=== PATIENT | female | born 1950 | race Caucasian/White ===

== ENCOUNTER 2018-11-16 07:56 | Inpatient (IN) ==
[2018-11-16] MEDS: Dexmedetomidine HCl 400 MCG/100 ML MLS IVC SCH ×2 (08:15→18:52)
[2018-11-16] MEDS ORDERED: 0.9 % Sodium Chloride 1,000 ML IVC ONE (08:19)
[2018-11-16] MEDS ORDERED: *HR* Etomidate 20 MG/10 ML AMPUL IVP ONE (08:23)
[2018-11-16] MEDS ORDERED: *HR* Rocuronium Bromide 50 MG/5 ML VIAL IVP ONE (08:24)
[2018-11-16] MEDS ORDERED: Dexmedetomidine HCl 400 MCG/100 ML MLS IVC ONE (08:32)
[2018-11-16] MEDS ORDERED: Isovue-370 500 ML BOTTLE IVP ONE (08:32)
[2018-11-16 08:50] LABS: Bilirubin,Urine Negative (Negative); Blood,Urine Trace (Negative); Clarity,Urine Clear (Clear); Color,Urine Yellow (Yellow); Glucose,Urine (UA) Normal (Normal); Ketones,Urine Negative (Negative); Leukocyte Esterase,Urine Negative (Negative); Nitrite,Urine Negative (Negative); Protein,Urine 100 mg/dL (Neg-Trace); Specific Gravity,Urine 1.021 (1.010-1.025); Urobilinogen,Urine Normal (Normal)
[2018-11-16 08:51] LABS: Basophils % 0.2 %; Immature Granulocytes % 1.2 % (0-4); Red Cell Distribution Width 14.7 % (11.5-14.5); Segmented Neutrophils % 84.3 %
[2018-11-16 08:52] LABS: Hematocrit 38.9 % (35.3-44.9); Hemoglobin 11.2 g/dL (11.5-15.4); Lymphocytes # 0.7 K/mcL (0.6-4.6); Lymphocytes % 4.5 %; Mean Corpuscular HGB Conc 28.8 g/dL (31.6-35.5); Mean Corpuscular Hemoglobin 25.5 pg (28.0-33.3); Mean Corpuscular Volume 88.6 fL (83.0-100.0); Mean Platelet Volume 11.1 fL (9.4-12.4); Monocytes # 1.5 K/mcL (0.0-1.3); Monocytes % 9.8 %; Neutrophils # 13.2 K/mcL (1.6-8.9); Platelet Count 298 K/mcL (140-400); Red Blood Count 4.39 M/mcL (3.82-4.97); White Blood Count 15.6 K/mcL (4.3-11.1)
--- NOTE | 2018-11-16 08:53 | Emergency Department Note ---
Disposition Clinical Impression: Altered mental status Qualifiers: Altered mental status type: unspecified Qualified Code(s): R41.82 - Altered mental status, unspecified Disposition: Admitted As Inpatient Condition: Critical Time of Disposition: 11:00 General Adult HPI - General Stated complaint: unresponsive Time Seen by Provider: 11/16/18 08:18 Source: EMS Mode of arrival: EMS Limitations: altered mental status Nursing Notes Reviewed: Yes Vital Signs Reviewed: Yes - History of Present Illness HPI Narrative: 68F with pmhx of stage 3 lung cancer that was at a doctor's appointment today and passed out in the parking lot. Pt was about to get into a car with her when she fell over. Pt was not breathing, but did have good pulses. Pt was emergently intubated. - Related Data Home Medications Medication Instructions Recorded Confirmed Albuterol Sulfate [Ventolin Hfa] 2 inh IH Q6H PRN 11/16/18 11/16/18 Budesonide/Formoterol 160/4.5 2 puff IH BIDR 11/16/18 11/16/18 [Symbicort 160/4.5] Folic Acid 1 mg PO DAILY 11/16/18 11/16/18 PredniSONE [Deltasone] 20 mg PO DAILY 11/16/18 11/16/18 Allergies Allergy/AdvReac Type Severity Reaction Status Date / Time No Known Allergies Allergy Verified 11/16/18 09:21 Limitations: ROS unobtainable due to patients medical condition Past Medical History - Past Medical History Attestation: Yes The following information was validated with the patient. Medical history: Reports: cancer Physical Exam General: Not awake or alert. Head: atraumatic, normocephalic. ENT: No conjunctival injection, no scleral icterus. PERRLA. Oropharynx non- erythematous. mucous membranes tacky. Neuro: No focal deficits, no speech deficit, no facial droop, mentating well. BUE/BLE Str 5/5. Pulm: Upper lung galvez have ronchi diffusely Cardio: Tachycardia. Abd: Soft, non-distended. Normoactive bowel sounds. Extremities: Radial pulses 2+ deuce, dorsalis pedis/posterior tibialis 2+ deuce. No LE edema. No cyanosis, clubbing. Skin: warm, dry, intact. No rashes. Course Vital Signs Pulse Rate 107 11/16/18 08:00 Respiratory Rate 21 11/16/18 08:00 Blood Pressure 137/68 11/16/18 08:00 O2 Sat by Pulse Oximetry 98 11/16/18 08:00 Temperature 98.3 F 11/16/18 14:30 Pulse Rate 75 11/16/18 14:30 Respiratory Rate 16 11/16/18 15:36 Blood Pressure 111/80 11/16/18 15:36 O2 Sat by Pulse Oximetry 97 11/16/18 15:36 Oxygen Delivery Oxygen Delivery Ventilator Medical Decision Making - MDM Narrative Medical decision making narrative: 68F that was dx with Stage III Lung cancer over the last several weeks, that developed SOB while walking from the house to the car and then passed out and became unresponsive. Pt was emergently intubated. CTA of chest shows tiny non- obstructing PE but more significantly, shows intermediate bronchus is obstructed by cancer of her rt hilum and mediastinum that is increased from two weeks ago. There may be a post-obstructive PNA on the right side, she will be treated with broad spectrum antibiotics. Pt will be admitted to ICU. Pt was admitted to ICU hospitalist Dr. Arora. Family was informed of her plan for care and they were in agreement with the plan. Pt was closely monitored while in the department and was stable at time of discharge. - Medical Records Medical records reviewed: Yes I reviewed the patient's medical records. - Lab Data Lab results reviewed: Yes I reviewed the patient's lab results. Result diagrams: 11/16/18 08:25 11/16/18 09:15 Lab Results 11/16/18 11/16/18 11/16/18 Range/Units 08:05 08:25 08:25 WBC 15.6 H (4.3-11.1) K/mcL RBC 4.39 (3.82-4.97) M/mcL Hgb 11.2 L (11.5-15.4) g/dL Hct 38.9 (35.3-44.9) % MCV 88.6 (83.0-100.0) fL MCH 25.5 L (28.0-33.3) pg MCHC 28.8 L (31.6-35.5) g/dL RDW 14.7 H (11.5-14.5) % Plt Count 298 (140-400) K/mcL MPV 11.1 (9.4-12.4) fL Immature Gran % 1.2 (0-4) % Seg Neutrophils % 84.3 % Lymphocytes % 4.5 % Monocytes % 9.8 % Eosinophils % 0.0 % Basophils % 0.2 % Neutrophils # 13.2 H (1.6-8.9) K/mcL Lymphocytes # 0.7 (0.6-4.6) K/mcL Monocytes # 1.5 H (0.0-1.3) K/mcL Eosinophils # 0.0 (0.0-0.6) K/mcL Basophils # 0.0 (0.0-0.2) K/mcL Platelet Estimate Normal (Normal) Polychromasia 1+ A (Not Present) Hypochromasia Present A (Not Present) PT 15.1 H (9.4-12.1) Seconds INR 1.3 APTT 24.9 L (26.0-36.0) Seconds Heparin Anti-Xa, Unfract (0.30-0.70) IU/mL ABG pH (7.32-7.45) pH Units ABG pCO2 (35-45) mmHg ABG pO2 (85-104) mmHg ABG HCO3 (21-27) mEq/L ABG Total CO2 (20-26) mEq/L ABG O2 Saturation (95-98) % ABG Base Excess (-2 to 3) mEq/L Respiration Rate O2 Delivery Device Blood Gas Modality Inspired O2 (1-15=lpm [id number]=%) Tidal Volume cc PEEP cm H2O Sodium (136-145) mEq/L Potassium (3.5-5.1) mEq/L Chloride (98-107) mEq/L Carbon Dioxide (23-29) mEq/L BUN (8-23) mg/dL Creatinine (0.60-1.20) mg/dL Est GFR ( Amer) (> 60) Est GFR (Non-Af Amer) (> 60) BUN/Creatinine Ratio (6-26) Glucose (70-105) mg/dL Calculated Osmolality (280-300) Lactic Acid (0.5-2.2) mmol/L Calcium (8.6-10.3) mg/dL Total Bilirubin (0.3-1.0) mg/dL Direct Bilirubin (0.0-0.2) mg/dL Indirect Bilirubin (0.0-1.2) mg/dL AST (13-39) Units/L ALT (7-52) Units/L Alkaline Phosphatase (34-104) Units/L Ammonia (16-53) mcmol/L Troponin I (< 0.04) ng/mL B-Natriuretic Peptide 261 H (Less than 100) pg/mL Serum Total Protein (6.4-8.9) g/dL Albumin (3.5-5.7) g/dL Globulin (2.4-3.5) g/dL Albumin/Globulin Ratio (1.1-2.2) TSH (0.340-5.600) mcIU/mL Urine Color (Yellow) Urine Clarity (Clear) Urine pH (5.0-8.0) pH Units Ur Specific Anselmo (1.010-1.025) Urine Protein (Neg-Trace) mg/dL Urine Glucose (UA) (Normal) mg/dL Urine Ketones (Negative) mg/dL Urine Blood (Negative) Urine Nitrite (Negative) Urine Bilirubin (Negative) Urine Urobilinogen (Normal) mg/dL Ur Leukocyte Esterase (Negative) Urine Microscopic RBC (0-3) per hpf Urine Microscopic WBC (0-3) per hpf Ur Squamous Epith Cells (None-Few) per lpf Urine Bacteria (None-Few) per hpf Granular Casts (None Seen) per lpf Ur Culture Indicated? (NO) Urine Opiates Screen (Awgrdx=344) ng/mL Ur Buprenorphine Scrn (Cutoff=5) ng/mL Ur Barbiturates Screen (Tumstm=625) ng/mL Ur Phencyclidine Scrn (Cutoff=25) ng/mL Ur Amphetamines Screen (Wjwjtt=1059) ng/mL U Benzodiazepines Scrn (Ksewxs=645) ng/mL Urine Cocaine Screen (Cutoff= 300) ng/mL U Marijuana (THC) Screen (Cutoff = 50) ng/mL Ur Drug Screen Interp Ethyl Alcohol (Less than 10) mg/dL Specimen Rejected Blood Type Antibody Screen 11/16/18 11/16/18 11/16/18 Range/Units 08:25 08:36 08:36 WBC (4.3-11.1) K/mcL RBC (3.82-4.97) M/mcL Hgb (11.5-15.4) g/dL Hct (35.3-44.9) % MCV (83.0-100.0) fL MCH (28.0-33.3) pg MCHC (31.6-35.5) g/dL RDW (11.5-14.5) % Plt Count (140-400) K/mcL MPV (9.4-12.4) fL Immature Gran % (0-4) % Seg Neutrophils % % Lymphocytes % % Monocytes % % Eosinophils % % Basophils % % Neutrophils # (1.6-8.9) K/mcL Lymphocytes # (0.6-4.6) K/mcL Monocytes # (0.0-1.3) K/mcL Eosinophils # (0.0-0.6) K/mcL Basophils # (0.0-0.2) K/mcL Platelet Estimate (Normal) Polychromasia (Not Present) Hypochromasia (Not Present) PT (9.4-12.1) Seconds INR APTT (26.0-36.0) Seconds Heparin Anti-Xa, Unfract (0.30-0.70) IU/mL ABG pH (7.32-7.45) pH Units ABG pCO2 (35-45) mmHg ABG pO2 (85-104) mmHg ABG HCO3 (21-27) mEq/L ABG Total CO2 (20-26) mEq/L ABG O2 Saturation (95-98) % ABG Base Excess (-2 to 3) mEq/L Respiration Rate O2 Delivery Device Blood Gas Modality Inspired O2 (1-15=lpm [id number]=%) Tidal Volume cc PEEP cm H2O Sodium (136-145) mEq/L Potassium (3.5-5.1) mEq/L Chloride (98-107) mEq/L Carbon Dioxide (23-29) mEq/L BUN (8-23) mg/dL Creatinine (0.60-1.20) mg/dL Est GFR ( Amer) (> 60) Est GFR (Non-Af Amer) (> 60) BUN/Creatinine Ratio (6-26) Glucose (70-105) mg/dL Calculated Osmolality (280-300) Lactic Acid (0.5-2.2) mmol/L Calcium (8.6-10.3) mg/dL Total Bilirubin (0.3-1.0) mg/dL Direct Bilirubin (0.0-0.2) mg/dL Indirect Bilirubin (0.0-1.2) mg/dL AST (13-39) Units/L ALT (7-52) Units/L Alkaline Phosphatase (34-104) Units/L Ammonia (16-53) mcmol/L Troponin I (< 0.04) ng/mL B-Natriuretic Peptide (Less than 100) pg/mL Serum Total Protein (6.4-8.9) g/dL Albumin (3.5-5.7) g/dL Globulin (2.4-3.5) g/dL Albumin/Globulin Ratio (1.1-2.2) TSH (0.340-5.600) mcIU/mL Urine Color Yellow (Yellow) Urine Clarity Clear (Clear) Urine pH 6.0 (5.0-8.0) pH Units Ur Specific Anselmo 1.021 (1.010-1.025) Urine Protein 100 H (Neg-Trace) mg/dL Urine Glucose (UA) Normal (Normal) mg/dL Urine Ketones Negative (Negative) mg/dL Urine Blood Trace H (Negative) Urine Nitrite Negative (Negative) Urine Bilirubin Negative (Negative) Urine Urobilinogen Normal (Normal) mg/dL Ur Leukocyte Esterase Negative (Negative) Urine Microscopic RBC 0-3 (0-3) per hpf Urine Microscopic WBC 0-3 (0-3) per hpf Ur Squamous Epith Cells Few (None-Few) per lpf Urine Bacteria Few (None-Few) per hpf Granular Casts Few H (None Seen) per lpf Ur Culture Indicated? YES A (NO) Urine Opiates Screen Negative (Fzubqs=329) ng/mL Ur Buprenorphine Scrn Negative (Cutoff=5) ng/mL Ur Barbiturates Screen Negative (Audjch=403) ng/mL Ur Phencyclidine Scrn Negative (Cutoff=25) ng/mL Ur Amphetamines Screen Negative (Luigud=2942) ng/mL U Benzodiazepines Scrn Negative (Udwofw=618) ng/mL Urine Cocaine Screen Negative (Cutoff= 300) ng/mL U Marijuana (THC) Screen Negative (Cutoff = 50) ng/mL Ur Drug Screen Interp See Below Ethyl Alcohol (Less than 10) mg/dL Specimen Rejected Contaminated Blood Type Antibody Screen 11/16/18 11/16/18 11/16/18 Range/Units 09:15 09:18 09:18 WBC (4.3-11.1) K/mcL RBC (3.82-4.97) M/mcL Hgb (11.5-15.4) g/dL Hct (35.3-44.9) % MCV (83.0-100.0) fL MCH (28.0-33.3) pg MCHC (31.6-35.5) g/dL RDW (11.5-14.5) % Plt Count (140-400) K/mcL MPV (9.4-12.4) fL Immature Gran % (0-4) % Seg Neutrophils % % Lymphocytes % % Monocytes % % Eosinophils % % Basophils % % Neutrophils # (1.6-8.9) K/mcL Lymphocytes # (0.6-4.6) K/mcL Monocytes # (0.0-1.3) K/mcL Eosinophils # (0.0-0.6) K/mcL Basophils # (0.0-0.2) K/mcL Platelet Estimate (Normal) Polychromasia (Not Present) Hypochromasia (Not Present) PT (9.4-12.1) Seconds INR APTT (26.0-36.0) Seconds Heparin Anti-Xa, Unfract (0.30-0.70) IU/mL ABG pH (7.32-7.45) pH Units ABG pCO2 (35-45) mmHg ABG pO2 (85-104) mmHg ABG HCO3 (21-27) mEq/L ABG Total CO2 (20-26) mEq/L ABG O2 Saturation (95-98) % ABG Base Excess (-2 to 3) mEq/L Respiration Rate O2 Delivery Device Blood Gas Modality Inspired O2 (1-15=lpm [id number]=%) Tidal Volume cc PEEP cm H2O Sodium 143 (136-145) mEq/L Potassium 4.3 (3.5-5.1) mEq/L Chloride 99 (98-107) mEq/L Carbon Dioxide 28 (23-29) mEq/L BUN 23 (8-23) mg/dL Creatinine 0.73 (0.60-1.20) mg/dL Est GFR ( Amer) > 60 (> 60) Est GFR (Non-Af Amer) > 60 (> 60) BUN/Creatinine Ratio 32 H (6-26) Glucose 186 H (70-105) mg/dL Calculated Osmolality 305 H (280-300) Lactic Acid (0.5-2.2) mmol/L Calcium 9.1 (8.6-10.3) mg/dL Total Bilirubin 0.5 (0.3-1.0) mg/dL Direct Bilirubin 0.1 (0.0-0.2) mg/dL Indirect Bilirubin 0.4 (0.0-1.2) mg/dL AST 40 H (13-39) Units/L ALT 20 (7-52) Units/L Alkaline Phosphatase 114 H (34-104) Units/L Ammonia 120 H (16-53) mcmol/L Troponin I 0.08 H* (< 0.04) ng/mL B-Natriuretic Peptide (Less than 100) pg/mL Serum Total Protein 7.1 (6.4-8.9) g/dL Albumin 3.4 L (3.5-5.7) g/dL Globulin 3.7 H (2.4-3.5) g/dL Albumin/Globulin Ratio 0.9 L (1.1-2.2) TSH 1.955 (0.340-5.600) mcIU/mL Urine Color (Yellow) Urine Clarity (Clear) Urine pH (5.0-8.0) pH Units Ur Specific Anselmo (1.010-1.025) Urine Protein (Neg-Trace) mg/dL Urine Glucose (UA) (Normal) mg/dL Urine Ketones (Negative) mg/dL Urine Blood (Negative) Urine Nitrite (Negative) Urine Bilirubin (Negative) Urine Urobilinogen (Normal) mg/dL Ur Leukocyte Esterase (Negative) Urine Microscopic RBC (0-3) per hpf Urine Microscopic WBC (0-3) per hpf Ur Squamous Epith Cells (None-Few) per lpf Urine Bacteria (None-Few) per hpf Granular Casts (None Seen) per lpf Ur Culture Indicated? (NO) Urine Opiates Screen (Uaqspm=773) ng/mL Ur Buprenorphine Scrn (Cutoff=5) ng/mL Ur Barbiturates Screen (Ghmryb=357) ng/mL Ur Phencyclidine Scrn (Cutoff=25) ng/mL Ur Amphetamines Screen (Fzoxtn=2092) ng/mL U Benzodiazepines Scrn (Aaihiv=580) ng/mL Urine Cocaine Screen (Cutoff= 300) ng/mL U Marijuana (THC) Screen (Cutoff = 50) ng/mL Ur Drug Screen Interp Ethyl Alcohol < 10 (Less than 10) mg/dL Specimen Rejected Blood Type A POSITIVE Antibody Screen NEGATIVE 11/16/18 11/16/18 11/16/18 Range/Units 09:24 12:27 12:44 WBC (4.3-11.1) K/mcL RBC (3.82-4.97) M/mcL Hgb (11.5-15.4) g/dL Hct (35.3-44.9) % MCV (83.0-100.0) fL MCH (28.0-33.3) pg MCHC (31.6-35.5) g/dL RDW (11.5-14.5) % Plt Count (140-400) K/mcL MPV (9.4-12.4) fL Immature Gran % (0-4) % Seg Neutrophils % % Lymphocytes % % Monocytes % % Eosinophils % % Basophils % % Neutrophils # (1.6-8.9) K/mcL Lymphocytes # (0.6-4.6) K/mcL Monocytes # (0.0-1.3) K/mcL Eosinophils # (0.0-0.6) K/mcL Basophils # (0.0-0.2) K/mcL Platelet Estimate (Normal) Polychromasia (Not Present) Hypochromasia (Not Present) PT (9.4-12.1) Seconds INR APTT (26.0-36.0) Seconds Heparin Anti-Xa, Unfract 0.67 (0.30-0.70) IU/mL ABG pH 7.34 (7.32-7.45) pH Units ABG pCO2 59 H (35-45) mmHg ABG pO2 122 H (85-104) mmHg ABG HCO3 32 H (21-27) mEq/L ABG Total CO2 33 H (20-26) mEq/L ABG O2 Saturation 98 (95-98) % ABG Base Excess 4 H (-2 to 3) mEq/L Respiration Rate 12 O2 Delivery Device Adult Vent Blood Gas Modality ASSIST CONTROL Inspired O2 50.0 (1-15=lpm [id number]=%) Tidal Volume 500 cc PEEP 5 cm H2O Sodium (136-145) mEq/L Potassium (3.5-5.1) mEq/L Chloride (98-107) mEq/L Carbon Dioxide (23-29) mEq/L BUN (8-23) mg/dL Creatinine (0.60-1.20) mg/dL Est GFR ( Amer) (> 60) Est GFR (Non-Af Amer) (> 60) BUN/Creatinine Ratio (6-26) Glucose (70-105) mg/dL Calculated Osmolality (280-300) Lactic Acid 1.3 (0.5-2.2) mmol/L Calcium (8.6-10.3) mg/dL Total Bilirubin (0.3-1.0) mg/dL Direct Bilirubin (0.0-0.2) mg/dL Indirect Bilirubin (0.0-1.2) mg/dL AST (13-39) Units/L ALT (7-52) Units/L Alkaline Phosphatase (34-104) Units/L Ammonia (16-53) mcmol/L Troponin I (< 0.04) ng/mL B-Natriuretic Peptide (Less than 100) pg/mL Serum Total Protein (6.4-8.9) g/dL Albumin (3.5-5.7) g/dL Globulin (2.4-3.5) g/dL Albumin/Globulin Ratio (1.1-2.2) TSH (0.340-5.600) mcIU/mL Urine Color (Yellow) Urine Clarity (Clear) Urine pH (5.0-8.0) pH Units Ur Specific Anselmo (1.010-1.025) Urine Protein (Neg-Trace) mg/dL Urine Glucose (UA) (Normal) mg/dL Urine Ketones (Negative) mg/dL Urine Blood (Negative) Urine Nitrite (Negative) Urine Bilirubin (Negative) Urine Urobilinogen (Normal) mg/dL Ur Leukocyte Esterase (Negative) Urine Microscopic RBC (0-3) per hpf Urine Microscopic WBC (0-3) per hpf Ur Squamous Epith Cells (None-Few) per lpf Urine Bacteria (None-Few) per hpf Granular Casts (None Seen) per lpf Ur Culture Indicated? (NO) Urine Opiates Screen (Gcankq=696) ng/mL Ur Buprenorphine Scrn (Cutoff=5) ng/mL Ur Barbiturates Screen (Ytyuqd=189) ng/mL Ur Phencyclidine Scrn (Cutoff=25) ng/mL Ur Amphetamines Screen (Zoxcgl=3581) ng/mL U Benzodiazepines Scrn (Dqaedw=129) ng/mL Urine Cocaine Screen (Cutoff= 300) ng/mL U Marijuana (THC) Screen (Cutoff = 50) ng/mL Ur Drug Screen Interp Ethyl Alcohol (Less than 10) mg/dL Specimen Rejected Blood Type Antibody Screen - Radiology Data Radiology results reviewed: Yes I reviewed the patient's radiology results. Chest X-Ray 11/16/18 08:29 IMPRESSION: Endotracheal tube tip is 2.8 cm from the gauri. Increasing bilateral airspace interstitial opacities either edema or multifocal pneumonia. D/ / Lynn Menjivar MD / Lynn Menjivar MD Interpreting Provider: Lynn Menjivar MD Head CT 11/16/18 09:06 IMPRESSION: No acute intracranial abnormality. D/ / King Gray MD / King Gray MD Interpreting Provider: King Gray MD Cervical Spine CT 11/16/18 09:07 IMPRESSION: 1.No acute abnormality of the cervical spine. D/ / Сергей Machado MD / Сергей Machado MD Interpreting Provider: Сергей Machado MD Chest CTA 11/16/18 09:07 IMPRESSION: Very small nonobstructing pulmonary embolism to the medial segment of the right middle lobe. At least mild increase in the size of the very large malignant mass in the medial base of the right middle lobe and right lower lobe. Several bibasilar pulmonary metastases present. Complete occlusion of the bronchus intermedius by adjacent adenopathy now present with developing postobstructive pneumonia or atelectasis. Slight pulmonary vascular congestion. Moderate emphysematous changes.. Very small right pleural effusion decreased in size since the prior study. Small infrarenal abdominal aortic aneurysm. 20 mm right thyroid nodule. RECOMMENDATIONS: For management of fusiform AAA: 3.5-3.9 cm AAA, recommend follow-up every 2 years. 4.0-4.4 cm AAA, recommend follow-up every 12 months and recommend vascular consultation. 4.5-5.4 cm AAA, recommend follow-up every 6 months and recommend vascular consultation. >5.5 cm AAA, recommend referral to vascular specialist. Note: For AAA enlargement of >0.5 cm in 6 months or >1 cm in 1 year, recommend vascular consultation. References: J Am Angy Radiol 2013; 10(10):789-794; J Vasc Surg. 2018; 67:2-77 Thyroid ultrasound would usually be recommended for a nodule of this size; however, the patient's more pressing medical concerns make follow-up significantly less important. D/ / Riky Gonzalez MD / Riky Gonzalez MD Interpreting Provider: Riky Gonzalez MD - EKG Data EKG #1 EKG attestation: Yes I reviewed and interpreted this EKG. EKG results narrative: Heart rate 124, rhythm sinus tachycardia, axis left. Intervals within normal limits. No clinically significant ST elevation or depression. No old EKG available for comparison.
--- NOTE | 2018-11-16 09:00 | Emergency Department Note ---
Disposition Clinical Impression: Altered mental status Qualifiers: Altered mental status type: unspecified Qualified Code(s): R41.82 - Altered mental status, unspecified Disposition: Admitted As Inpatient Condition: Critical Time of Disposition: 13:27 General Adult HPI - General Stated complaint: unresponsive Time Seen by Provider: 11/16/18 08:18 Source: EMS Mode of arrival: EMS Limitations: altered mental status - Related Data Home Medications Medication Instructions Recorded Confirmed Albuterol Sulfate [Ventolin Hfa] 2 inh IH Q6H PRN 11/16/18 11/16/18 Budesonide/Formoterol 160/4.5 2 puff IH BIDR 11/16/18 11/16/18 [Symbicort 160/4.5] Folic Acid 1 mg PO DAILY 11/16/18 11/16/18 PredniSONE [Deltasone] 20 mg PO DAILY 11/16/18 11/16/18 Allergies Allergy/AdvReac Type Severity Reaction Status Date / Time No Known Allergies Allergy Verified 11/16/18 09:21 Physical Exam - General Limitations: altered mental status Course Vital Signs Pulse Rate 107 11/16/18 08:00 Respiratory Rate 21 11/16/18 08:00 Blood Pressure 137/68 11/16/18 08:00 O2 Sat by Pulse Oximetry 98 11/16/18 08:00 Temperature 98.3 F 11/16/18 14:30 Pulse Rate 75 11/16/18 14:30 Respiratory Rate 16 11/16/18 15:36 Blood Pressure 111/80 11/16/18 15:36 O2 Sat by Pulse Oximetry 97 11/16/18 15:36 Oxygen Delivery Oxygen Delivery Ventilator Medical Decision Making - Lab Data Result diagrams: 11/16/18 08:25 11/16/18 09:15 Lab Results 11/16/18 11/16/18 11/16/18 Range/Units 08:05 08:25 08:25 WBC 15.6 H (4.3-11.1) K/mcL RBC 4.39 (3.82-4.97) M/mcL Hgb 11.2 L (11.5-15.4) g/dL Hct 38.9 (35.3-44.9) % MCV 88.6 (83.0-100.0) fL MCH 25.5 L (28.0-33.3) pg MCHC 28.8 L (31.6-35.5) g/dL RDW 14.7 H (11.5-14.5) % Plt Count 298 (140-400) K/mcL MPV 11.1 (9.4-12.4) fL Immature Gran % 1.2 (0-4) % Seg Neutrophils % 84.3 % Lymphocytes % 4.5 % Monocytes % 9.8 % Eosinophils % 0.0 % Basophils % 0.2 % Neutrophils # 13.2 H (1.6-8.9) K/mcL Lymphocytes # 0.7 (0.6-4.6) K/mcL Monocytes # 1.5 H (0.0-1.3) K/mcL Eosinophils # 0.0 (0.0-0.6) K/mcL Basophils # 0.0 (0.0-0.2) K/mcL Platelet Estimate Normal (Normal) Polychromasia 1+ A (Not Present) Hypochromasia Present A (Not Present) PT 15.1 H (9.4-12.1) Seconds INR 1.3 APTT 24.9 L (26.0-36.0) Seconds Heparin Anti-Xa, Unfract (0.30-0.70) IU/mL ABG pH (7.32-7.45) pH Units ABG pCO2 (35-45) mmHg ABG pO2 (85-104) mmHg ABG HCO3 (21-27) mEq/L ABG Total CO2 (20-26) mEq/L ABG O2 Saturation (95-98) % ABG Base Excess (-2 to 3) mEq/L Respiration Rate O2 Delivery Device Blood Gas Modality Inspired O2 (1-15=lpm qg76-970=%) Tidal Volume cc PEEP cm H2O Sodium (136-145) mEq/L Potassium (3.5-5.1) mEq/L Chloride (98-107) mEq/L Carbon Dioxide (23-29) mEq/L BUN (8-23) mg/dL Creatinine (0.60-1.20) mg/dL Est GFR ( Amer) (> 60) Est GFR (Non-Af Amer) (> 60) BUN/Creatinine Ratio (6-26) Glucose (70-105) mg/dL Calculated Osmolality (280-300) Lactic Acid (0.5-2.2) mmol/L Calcium (8.6-10.3) mg/dL Total Bilirubin (0.3-1.0) mg/dL Direct Bilirubin (0.0-0.2) mg/dL Indirect Bilirubin (0.0-1.2) mg/dL AST (13-39) Units/L ALT (7-52) Units/L Alkaline Phosphatase (34-104) Units/L Ammonia (16-53) mcmol/L Troponin I (< 0.04) ng/mL B-Natriuretic Peptide 261 H (Less than 100) pg/mL Serum Total Protein (6.4-8.9) g/dL Albumin (3.5-5.7) g/dL Globulin (2.4-3.5) g/dL Albumin/Globulin Ratio (1.1-2.2) TSH (0.340-5.600) mcIU/mL Urine Color (Yellow) Urine Clarity (Clear) Urine pH (5.0-8.0) pH Units Ur Specific [place] (1.010-1.025) Urine Protein (Neg-Trace) mg/dL Urine Glucose (UA) (Normal) mg/dL Urine Ketones (Negative) mg/dL Urine Blood (Negative) Urine Nitrite (Negative) Urine Bilirubin (Negative) Urine Urobilinogen (Normal) mg/dL Ur Leukocyte Esterase (Negative) Urine Microscopic RBC (0-3) per hpf Urine Microscopic WBC (0-3) per hpf Ur Squamous Epith Cells (None-Few) per lpf Urine Bacteria (None-Few) per hpf Granular Casts (None Seen) per lpf Ur Culture Indicated? (NO) Urine Opiates Screen (Kfofmb=313) ng/mL Ur Buprenorphine Scrn (Cutoff=5) ng/mL Ur Barbiturates Screen (Omihnn=308) ng/mL Ur Phencyclidine Scrn (Cutoff=25) ng/mL Ur Amphetamines Screen (Npltfa=8524) ng/mL U Benzodiazepines Scrn (Dtxybs=729) ng/mL Urine Cocaine Screen (Cutoff= 300) ng/mL U Marijuana (THC) Screen (Cutoff = 50) ng/mL Ur Drug Screen Interp Ethyl Alcohol (Less than 10) mg/dL Specimen Rejected Blood Type Antibody Screen 11/16/18 11/16/18 11/16/18 Range/Units 08:25 08:36 08:36 WBC (4.3-11.1) K/mcL RBC (3.82-4.97) M/mcL Hgb (11.5-15.4) g/dL Hct (35.3-44.9) % MCV (83.0-100.0) fL MCH (28.0-33.3) pg MCHC (31.6-35.5) g/dL RDW (11.5-14.5) % Plt Count (140-400) K/mcL MPV (9.4-12.4) fL Immature Gran % (0-4) % Seg Neutrophils % % Lymphocytes % % Monocytes % % Eosinophils % % Basophils % % Neutrophils # (1.6-8.9) K/mcL Lymphocytes # (0.6-4.6) K/mcL Monocytes # (0.0-1.3) K/mcL Eosinophils # (0.0-0.6) K/mcL Basophils # (0.0-0.2) K/mcL Platelet Estimate (Normal) Polychromasia (Not Present) Hypochromasia (Not Present) PT (9.4-12.1) Seconds INR APTT (26.0-36.0) Seconds Heparin Anti-Xa, Unfract (0.30-0.70) IU/mL ABG pH (7.32-7.45) pH Units ABG pCO2 (35-45) mmHg ABG pO2 (85-104) mmHg ABG HCO3 (21-27) mEq/L ABG Total CO2 (20-26) mEq/L ABG O2 Saturation (95-98) % ABG Base Excess (-2 to 3) mEq/L Respiration Rate O2 Delivery Device Blood Gas Modality Inspired O2 (1-15=lpm ol22-650=%) Tidal Volume cc PEEP cm H2O Sodium (136-145) mEq/L Potassium (3.5-5.1) mEq/L Chloride (98-107) mEq/L Carbon Dioxide (23-29) mEq/L BUN (8-23) mg/dL Creatinine (0.60-1.20) mg/dL Est GFR ( Amer) (> 60) Est GFR (Non-Af Amer) (> 60) BUN/Creatinine Ratio (6-26) Glucose (70-105) mg/dL Calculated Osmolality (280-300) Lactic Acid (0.5-2.2) mmol/L Calcium (8.6-10.3) mg/dL Total Bilirubin (0.3-1.0) mg/dL Direct Bilirubin (0.0-0.2) mg/dL Indirect Bilirubin (0.0-1.2) mg/dL AST (13-39) Units/L ALT (7-52) Units/L Alkaline Phosphatase (34-104) Units/L Ammonia (16-53) mcmol/L Troponin I (< 0.04) ng/mL B-Natriuretic Peptide (Less than 100) pg/mL Serum Total Protein (6.4-8.9) g/dL Albumin (3.5-5.7) g/dL Globulin (2.4-3.5) g/dL Albumin/Globulin Ratio (1.1-2.2) TSH (0.340-5.600) mcIU/mL Urine Color Yellow (Yellow) Urine Clarity Clear (Clear) Urine pH 6.0 (5.0-8.0) pH Units Ur Specific [place] 1.021 (1.010-1.025) Urine Protein 100 H (Neg-Trace) mg/dL Urine Glucose (UA) Normal (Normal) mg/dL Urine Ketones Negative (Negative) mg/dL Urine Blood Trace H (Negative) Urine Nitrite Negative (Negative) Urine Bilirubin Negative (Negative) Urine Urobilinogen Normal (Normal) mg/dL Ur Leukocyte Esterase Negative (Negative) Urine Microscopic RBC 0-3 (0-3) per hpf Urine Microscopic WBC 0-3 (0-3) per hpf Ur Squamous Epith Cells Few (None-Few) per lpf Urine Bacteria Few (None-Few) per hpf Granular Casts Few H (None Seen) per lpf Ur Culture Indicated? YES A (NO) Urine Opiates Screen Negative (Mgrwmg=634) ng/mL Ur Buprenorphine Scrn Negative (Cutoff=5) ng/mL Ur Barbiturates Screen Negative (Zzhswq=020) ng/mL Ur Phencyclidine Scrn Negative (Cutoff=25) ng/mL Ur Amphetamines Screen Negative (Gpdklg=7495) ng/mL U Benzodiazepines Scrn Negative (Znhkga=003) ng/mL Urine Cocaine Screen Negative (Cutoff= 300) ng/mL U Marijuana (THC) Screen Negative (Cutoff = 50) ng/mL Ur Drug Screen Interp See Below Ethyl Alcohol (Less than 10) mg/dL Specimen Rejected Contaminated Blood Type Antibody Screen 11/16/18 11/16/18 11/16/18 Range/Units 09:15 09:18 09:18 WBC (4.3-11.1) K/mcL RBC (3.82-4.97) M/mcL Hgb (11.5-15.4) g/dL Hct (35.3-44.9) % MCV (83.0-100.0) fL MCH (28.0-33.3) pg MCHC (31.6-35.5) g/dL RDW (11.5-14.5) % Plt Count (140-400) K/mcL MPV (9.4-12.4) fL Immature Gran % (0-4) % Seg Neutrophils % % Lymphocytes % % Monocytes % % Eosinophils % % Basophils % % Neutrophils # (1.6-8.9) K/mcL Lymphocytes # (0.6-4.6) K/mcL Monocytes # (0.0-1.3) K/mcL Eosinophils # (0.0-0.6) K/mcL Basophils # (0.0-0.2) K/mcL Platelet Estimate (Normal) Polychromasia (Not Present) Hypochromasia (Not Present) PT (9.4-12.1) Seconds INR APTT (26.0-36.0) Seconds Heparin Anti-Xa, Unfract (0.30-0.70) IU/mL ABG pH (7.32-7.45) pH Units ABG pCO2 (35-45) mmHg ABG pO2 (85-104) mmHg ABG HCO3 (21-27) mEq/L ABG Total CO2 (20-26) mEq/L ABG O2 Saturation (95-98) % ABG Base Excess (-2 to 3) mEq/L Respiration Rate O2 Delivery Device Blood Gas Modality Inspired O2 (1-15=lpm gz49-360=%) Tidal Volume cc PEEP cm H2O Sodium 143 (136-145) mEq/L Potassium 4.3 (3.5-5.1) mEq/L Chloride 99 (98-107) mEq/L Carbon Dioxide 28 (23-29) mEq/L BUN 23 (8-23) mg/dL Creatinine 0.73 (0.60-1.20) mg/dL Est GFR ( Amer) > 60 (> 60) Est GFR (Non-Af Amer) > 60 (> 60) BUN/Creatinine Ratio 32 H (6-26) Glucose 186 H (70-105) mg/dL Calculated Osmolality 305 H (280-300) Lactic Acid (0.5-2.2) mmol/L Calcium 9.1 (8.6-10.3) mg/dL Total Bilirubin 0.5 (0.3-1.0) mg/dL Direct Bilirubin 0.1 (0.0-0.2) mg/dL Indirect Bilirubin 0.4 (0.0-1.2) mg/dL AST 40 H (13-39) Units/L ALT 20 (7-52) Units/L Alkaline Phosphatase 114 H (34-104) Units/L Ammonia 120 H (16-53) mcmol/L Troponin I 0.08 H* (< 0.04) ng/mL B-Natriuretic Peptide (Less than 100) pg/mL Serum Total Protein 7.1 (6.4-8.9) g/dL Albumin 3.4 L (3.5-5.7) g/dL Globulin 3.7 H (2.4-3.5) g/dL Albumin/Globulin Ratio 0.9 L (1.1-2.2) TSH 1.955 (0.340-5.600) mcIU/mL Urine Color (Yellow) Urine Clarity (Clear) Urine pH (5.0-8.0) pH Units Ur Specific [place] (1.010-1.025) Urine Protein (Neg-Trace) mg/dL Urine Glucose (UA) (Normal) mg/dL Urine Ketones (Negative) mg/dL Urine Blood (Negative) Urine Nitrite (Negative) Urine Bilirubin (Negative) Urine Urobilinogen (Normal) mg/dL Ur Leukocyte Esterase (Negative) Urine Microscopic RBC (0-3) per hpf Urine Microscopic WBC (0-3) per hpf Ur Squamous Epith Cells (None-Few) per lpf Urine Bacteria (None-Few) per hpf Granular Casts (None Seen) per lpf Ur Culture Indicated? (NO) Urine Opiates Screen (Oggsam=912) ng/mL Ur Buprenorphine Scrn (Cutoff=5) ng/mL Ur Barbiturates Screen (Nfrlve=367) ng/mL Ur Phencyclidine Scrn (Cutoff=25) ng/mL Ur Amphetamines Screen (Pawtwz=4583) ng/mL U Benzodiazepines Scrn (Gyemva=175) ng/mL Urine Cocaine Screen (Cutoff= 300) ng/mL U Marijuana (THC) Screen (Cutoff = 50) ng/mL Ur Drug Screen Interp Ethyl Alcohol < 10 (Less than 10) mg/dL Specimen Rejected Blood Type A POSITIVE Antibody Screen NEGATIVE 11/16/18 11/16/18 11/16/18 Range/Units 09:24 12:27 12:44 WBC (4.3-11.1) K/mcL RBC (3.82-4.97) M/mcL Hgb (11.5-15.4) g/dL Hct (35.3-44.9) % MCV (83.0-100.0) fL MCH (28.0-33.3) pg MCHC (31.6-35.5) g/dL RDW (11.5-14.5) % Plt Count (140-400) K/mcL MPV (9.4-12.4) fL Immature Gran % (0-4) % Seg Neutrophils % % Lymphocytes % % Monocytes % % Eosinophils % % Basophils % % Neutrophils # (1.6-8.9) K/mcL Lymphocytes # (0.6-4.6) K/mcL Monocytes # (0.0-1.3) K/mcL Eosinophils # (0.0-0.6) K/mcL Basophils # (0.0-0.2) K/mcL Platelet Estimate (Normal) Polychromasia (Not Present) Hypochromasia (Not Present) PT (9.4-12.1) Seconds INR APTT (26.0-36.0) Seconds Heparin Anti-Xa, Unfract 0.67 (0.30-0.70) IU/mL ABG pH 7.34 (7.32-7.45) pH Units ABG pCO2 59 H (35-45) mmHg ABG pO2 122 H (85-104) mmHg ABG HCO3 32 H (21-27) mEq/L ABG Total CO2 33 H (20-26) mEq/L ABG O2 Saturation 98 (95-98) % ABG Base Excess 4 H (-2 to 3) mEq/L Respiration Rate 12 O2 Delivery Device Adult Vent Blood Gas Modality ASSIST CONTROL Inspired O2 50.0 (1-15=lpm yt28-824=%) Tidal Volume 500 cc PEEP 5 cm H2O Sodium (136-145) mEq/L Potassium (3.5-5.1) mEq/L Chloride (98-107) mEq/L Carbon Dioxide (23-29) mEq/L BUN (8-23) mg/dL Creatinine (0.60-1.20) mg/dL Est GFR ( Amer) (> 60) Est GFR (Non-Af Amer) (> 60) BUN/Creatinine Ratio (6-26) Glucose (70-105) mg/dL Calculated Osmolality (280-300) Lactic Acid 1.3 (0.5-2.2) mmol/L Calcium (8.6-10.3) mg/dL Total Bilirubin (0.3-1.0) mg/dL Direct Bilirubin (0.0-0.2) mg/dL Indirect Bilirubin (0.0-1.2) mg/dL AST (13-39) Units/L ALT (7-52) Units/L Alkaline Phosphatase (34-104) Units/L Ammonia (16-53) mcmol/L Troponin I (< 0.04) ng/mL B-Natriuretic Peptide (Less than 100) pg/mL Serum Total Protein (6.4-8.9) g/dL Albumin (3.5-5.7) g/dL Globulin (2.4-3.5) g/dL Albumin/Globulin Ratio (1.1-2.2) TSH (0.340-5.600) mcIU/mL Urine Color (Yellow) Urine Clarity (Clear) Urine pH (5.0-8.0) pH Units Ur Specific [place] (1.010-1.025) Urine Protein (Neg-Trace) mg/dL Urine Glucose (UA) (Normal) mg/dL Urine Ketones (Negative) mg/dL Urine Blood (Negative) Urine Nitrite (Negative) Urine Bilirubin (Negative) Urine Urobilinogen (Normal) mg/dL Ur Leukocyte Esterase (Negative) Urine Microscopic RBC (0-3) per hpf Urine Microscopic WBC (0-3) per hpf Ur Squamous Epith Cells (None-Few) per lpf Urine Bacteria (None-Few) per hpf Granular Casts (None Seen) per lpf Ur Culture Indicated? (NO) Urine Opiates Screen (Vlvpux=767) ng/mL Ur Buprenorphine Scrn (Cutoff=5) ng/mL Ur Barbiturates Screen (Lrueih=113) ng/mL Ur Phencyclidine Scrn (Cutoff=25) ng/mL Ur Amphetamines Screen (Fahcfk=8119) ng/mL U Benzodiazepines Scrn (Astdjy=867) ng/mL Urine Cocaine Screen (Cutoff= 300) ng/mL U Marijuana (THC) Screen (Cutoff = 50) ng/mL Ur Drug Screen Interp Ethyl Alcohol (Less than 10) mg/dL Specimen Rejected Blood Type Antibody Screen Attestation Statement - Attestation Attestation: I examined this patient and my medical decision-making was reviewed with the Resident Physician. I agree with the documented findings, disposition and treatment plan as described except to the extent set forth below. states that he was sitting in the farm truck driver's seat of the car getting ready to take her to her doctor's appointment, she was about to get in the passenger seat when she collapsed. He did not see whether she landed on the concrete her on the grass, but she was unresponsive when he got out of the car to check on her. Medics state that she had agonal respirations on their arrival. They have been bagging and route. The states that she would not been complaining of feeling badly this morning, was not complaining of headache, chest pain, etc. She was recently diagnosed with stage III lung cancer. Prior to that, had not really been going to doctors and was not on any medications. Currently she is on Symbicort as well as an oral steroid and one other vitamin per his report. Not on anticoagulants or other medications. Never had a DVT or PE. On arrival, she is unresponsive, being bagged by paramedics. Decision was quickly made to intubate. I was present for the resident's EKG interpretation as well as for the intubation, which was done using rapid oxygenation and rapid sequence induction. She had a transient drop in blood pressure, so a bedside ultrasound was done for Hypertension. Procedure, emergency point care ultrasound for Hypotension: Procedure performed by me. Images were not archived. Echocardiogram revealed near complete emptying of left ventricle and systole with normal left to right septal motion, no right ventricular enlargement, negative McConnel sign. No pericardial effusion was visualized. IVC measured within the liver at 1.2 cm, this was done while she was being mechanically ventilated. No signs of free fluid in the abdomen. The aorta was visualized from the epigastrium to the bifurcation in both longitudinal and transverse planes without evidence of aneurysmal dilatation, no visible flap in the aorta. Patient is ultrasound, we continued fluid resuscitation. The blood pressure came up quickly with IV fluids and has been stable to this point since. CT of the head as well as the C-spine of been ordered, as well as a CTA of the chest to confirm the absence of pulmonary embolism in this patient who had sudden collapse with a history of stage III cancer. Critical care time: I was directly and primarily involved in the care of this patient for 40 minutes excluding procedures.
[2018-11-16 09:01] LABS: INR 1.3; Prothrombin Time 15.1 Seconds (9.4-12.1)
[2018-11-16 09:03] LABS: Activated Partial Thrombo Time 24.9 Seconds (26.0-36.0)
[2018-11-16 09:08] LABS: Granular Casts,Urine Few per lpf (None Seen)
[2018-11-16 09:10] LABS: Bacteria,Urine Few per hpf (None-Few); RBC,Urine 0-3 per hpf (0-3); Squamous Epithelial Cell,Urine Few per lpf (None-Few); WBC,Urine 0-3 per hpf (0-3)
[2018-11-16 09:12] LABS: Amphetamine Screen,Urine Negative ng/mL (Cutoff=1000)
[2018-11-16] MEDS ORDERED: *HR* EPINEPHrine 1 MG/10 ML SYRINGE IVP ONE (09:12)
[2018-11-16 09:13] LABS: Barbiturate Screen,Urine Negative ng/mL (Cutoff=200); Benzodiazepines Screen,Urine Negative ng/mL (Cutoff=200); Cannabinoid Screen,Urine Negative ng/mL (Cutoff = 50); Cocaine Screen,Urine Negative ng/mL (Cutoff= 300); Opiate Screen,Urine Negative ng/mL (Cutoff=300); Phencyclidine Screen,Urine Negative ng/mL (Cutoff=25)
[2018-11-16 09:23] LABS: Platelet Estimate Normal (Normal); Polychromasia 1+ (Not Present)
[2018-11-16 09:24] LABS: Hypochromasia Present (Not Present)
[2018-11-16] MEDS: Norepinephrine 4 MG in 0.9 % Sodium Chloride 250 ML IVC SCH ×2 (09:30→19:00)
[2018-11-16 09:31] LABS: ABG Base Excess 4 mEq/L (-2 to 3); ABG HCO3 32 mEq/L (21-27); ABG Oxygen Saturation 98 % (95-98); ABG PCO2 59 mmHg (35-45); ABG PH 7.34 pH Units (7.32-7.45); ABG PO2 122 mmHg (85-104); ABG TCO2 33 mEq/L (20-26); Blood Gas Modality ASSIST CONTROL; Blood Gas PEEP 5 cm H2O; Blood Gas VT 500 cc
[2018-11-16] MEDS ORDERED: Piperacillin/Tazobactam 4.5 GM in 0.9 % Sodium Chloride Mini Bag 100 ML IVPB ONE (09:42)
[2018-11-16] MEDS ORDERED: levoFLOXacin 500 MG/100 ML 500 MG/100 ML BAG IVPB ONE (09:42)
[2018-11-16] MEDS ORDERED: *HR* Heparin 5,000 UNIT/ML VIAL IVP PRN ×2 (09:46)
[2018-11-16] MEDS ORDERED: *HR* Heparin 5,000 UNIT/ML VIAL IVP ONE (09:46)
[2018-11-16] MEDS ORDERED: Piperacillin/Tazobactam 3.375 GM in 0.9 % Sodium Chloride Mini Bag 100 ML IVPB ONE (10:22)
[2018-11-16 10:43] LABS: Alanine Aminotransferase 20 Units/L (7-52); Albumin 3.4 g/dL (3.5-5.7); Albumin/Globulin Ratio 0.9 (1.1-2.2); Alkaline Phosphatase 114 Units/L (34-104); Aspartate Amino Transferase 40 Units/L (13-39); BUN/Creatinine Ratio 32 (6-26); Bilirubin,Direct 0.1 mg/dL (0.0-0.2); Bilirubin,Indirect 0.4 mg/dL (0.0-1.2); Bilirubin,Total 0.5 mg/dL (0.3-1.0); Blood Urea Nitrogen 23 mg/dL (8-23); Calcium 9.1 mg/dL (8.6-10.3); Carbon Dioxide 28 mEq/L (23-29); Chloride 99 mEq/L (98-107); Ethanol < 10 mg/dL (Less than 10); Globulin 3.7 g/dL (2.4-3.5); Glucose 186 mg/dL (70-105); Osmolality,Calculated 305 (280-300); Potassium 4.3 mEq/L (3.5-5.1); Sodium 143 mEq/L (136-145); Thyroid Stimulating Hormone 1.955 mcIU/mL (0.340-5.600); Total Protein 7.1 g/dL (6.4-8.9); Troponin I 0.08 ng/mL (< 0.04); eGFR For African Americans > 60 (> 60); eGFR For Non-African Americans > 60 (> 60)
[2018-11-16] MEDS: Heparin 25,000 UNIT/250 ML D5W 25,000 UNIT/250 ML IV.SOLN IVC SCH (10:48)
[2018-11-16] MEDS ORDERED: Artificial Tears SOLN 15 ML BOTTLE BOTH EYES PRN (12:01)
--- NOTE | 2018-11-16 12:21 | Internal Med History&Physical ---
Date of Encounter: 11/19/18 Time of Encounter: 12:11 Internal Medicine - H&P: HPI Chief complaint: Syncope Admitted From: Emergency Dept Plans for Post Hospital Care: Home History of present illness: Ms. 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 She fell down on the grass. She was unresponsive but was breathing the whole time with gasping per her . states her eyes were rolled back but she did not have any seizure-like activity. EMS was summoned and she was brought to the emergency room, with Ambu bag being performed. Patient was quickly intubated on arrival to the emergency room. She was placed on propofol initially but had a drop in her blood pressure, and was transiently switched to Precedex. She is now back on propofol. Workup included a bedside echocardiogram which showed near-complete emptying of left ventricle with what appeared to be normal systolic function. IVC was measured near the liver a 1.2 cm. Aorta appeared normal. She was given IV fluids and blood pressure improved. She had a CT of her head noncontrast which showed no acute process. C-spine CT was negative. She had a stat CT of her thorax which showed a very small nonobstructing pulmonary embolism in the medial segment of the right m iddle lobe. She also has what appears to be increasing size of a malignant mass in the medial base of the right middle lobe and right lower lobe, as well as several by basilar pulmonary metastases present. She had complete occlusion of the bronchus intermedius by adjacent lymphadenopathy, concern for developing postobstructive pneumonia. There is some mild pulmonary vascular congestion, and moderate emphysematous changes. Incidentally noted 3.5 cm infrarenal AAA. Currently patient is on ventilatory support. Blood pressure 101/71, Restoril rate is 16, pulse is 73, she is satting 100%. She is on assist control rate of 12 500 tidal volume FiO2 of 50, PEEP of 5. Most recent ABG showed a pH of 7.34, PCO2 59, PO2 122. Patient is awake following commands. She is sedated with propofol. Oropharynx is moist, lungs show coarse diffuse breath sounds bilaterally, heart was regular rate and rhythm, abdomen benign. Extremities showed no significant edema. No gross focal neurologic deficits. White blood cell count 15.6 hemoglobin 11.2 platelets 298,000. INR 1.3. Sodium 143 potassium 4.3 chloride 99 CO2 28 BUN 23 creatinine 0.73 liver enzymes showed a AST of 40 AST of 20. Alkaline phosphatase 114, ammonia level of 120, troponin 0.08. TSH 1.955. Urinalysis is negative. Urine drug screen is negative. Patient has had blood cultures performed 2. She is currently on Zosyn, and vancomycin IV. Patient is currently being transferred to the intensive care service. Review of systems is limited as patient is ventilated, although she does not her yes when asked if she has pain in her back, which is chronic for her. Past Med Surg Social Fam HX - Past Medical History Medical history: cancer Additional medical history: stage 3 lung cancer Psychiatric history: no psych history - Past Surgical History Surgical History: no surgical history - Social History Smoking Status: Former smoker Smokeless Tobacco Status: No Alcohol use: none Drug use: none Occupational status: unemployed Current living situation: Home, With Family Activity Level: Independent ambulation Recent Out of Country Travel Within the Last 8 Weeks: No Exposure or Possible Exposure to Illness During Travel: No - Additional Family History Additional family history: Fam hx reviewed and nonconributory Internal Medicine - H&P: Meds Albuterol Sulfate [Ventolin Hfa] 2 inh IH Q6H PRN 11/16/18 [History] Budesonide/Formoterol 160/4.5 [Symbicort 160/4.5] 2 puff IH BIDR 11/16/18 [History] Folic Acid 1 mg PO DAILY 11/16/18 [History] PredniSONE [Deltasone] 20 mg PO DAILY 11/16/18 [History] Allergy/AdvReac Type Severity Reaction Status Date / Time No Known Allergies Allergy Verified 11/17/18 14:46 ROS unobtainable: due to endotracheal tube All Systems PM: A 10-system review of systems was performed and is negative for pertinent findings except as documented above in the HPI, although review of systems is limited due to the fact that she is intubated and sedated. Review of systems: ubale to obtain as pt is ventilated and sedated - Constitutional Vitals: Temp Pulse Resp BP Pulse Ox 98.4 F 73 16 101/81 100 11/16/18 10:30 11/16/18 10:56 11/16/18 11:08 11/16/18 11:08 11/16/18 11:08 General appearance: Present: mild distress, A&O X 3 Exam: . - Head Head exam: Present: atraumatic, normocephalic - Neck Neck exam general surgery: Present: supple, trachea midline. Absent: lymphadenopathy - Respiratory Respiratory exam: Present: prolonged expiratory phase, rhonchi (Diffuse coarse rhonchi throughout all galvez) - Cardiovascular Cardiovascular exam: Present: RRR, +S1, +S2. Absent: diastolic murmur, gallop, rubs, systolic murmur - GI/Abdominal GI/Abdominal exam: Present: normal bowel sounds, soft, no peritoneal signs. Absent: distended, tenderness - Extremities Exam Extremities exam: Present: pedal edema, warm, radial pulses palpable and symmetrical. Absent: calf tenderness, cyanotic - Neurological Exam Neurological exam: Present: CN II-XII intact, no focal deficits. Absent: pronater drift, facial droop, speech deficit - Skin Skin exam: Present: dry, intact, warm Additional comments: Cap refill less than 2.5 seconds Internal Med - H&P Results - Labs CBC & Chem 7: 11/19/18 03:40 11/19/18 03:40 Labs: Short CBC 11/16/18 Range/Units 08:25 WBC 15.6 H (4.3-11.1) K/mcL Hgb 11.2 L (11.5-15.4) g/dL Hct 38.9 (35.3-44.9) % Plt Count 298 (140-400) K/mcL Neutrophils # 13.2 H (1.6-8.9) K/mcL BMP 11/16/18 09:15 Sodium 143 Potassium 4.3 Chloride 99 Carbon Dioxide 28 BUN 23 Creatinine 0.73 Glucose 186 H Calcium 9.1 Cardiac Enzymes 11/16/18 Range/Units 09:15 Troponin I 0.08 H* (< 0.04) ng/mL Liver Function 11/16/18 Range/Units 09:15 Total Bilirubin 0.5 (0.3-1.0) mg/dL Direct Bilirubin 0.1 (0.0-0.2) mg/dL AST 40 H (13-39) Units/L ALT 20 (7-52) Units/L Alkaline Phosphatase 114 H (34-104) Units/L Albumin 3.4 L (3.5-5.7) g/dL Urine 11/16/18 Range/Units 08:36 Urine Color Yellow (Yellow) Urine Clarity Clear (Clear) Urine pH 6.0 (5.0-8.0) pH Units Ur Specific [place] 1.021 (1.010-1.025) Urine Protein 100 H (Neg-Trace) mg/dL Urine Glucose (UA) Normal (Normal) mg/dL - ABG Interpretation ABG results: 11/16/18 09:24 ABG pH 7.34 ABG pCO2 59 H ABG pO2 122 H ABG HCO3 32 H ABG Total CO2 33 H ABG O2 Saturation 98 ABG Base Excess 4 H - Impressions ITS Impressions Chest X-Ray 11/16/18 08:29 IMPRESSION: Endotracheal tube tip is 2.8 cm from the gauri. Increasing bilateral airspace interstitial opacities either edema or multifocal pneumonia. D/ / Lynn Menjivar MD / Lynn Menjivar MD Interpreting Provider: Lynn Menjivar MD Head CT 11/16/18 09:06 IMPRESSION: No acute intracranial abnormality. D/ / King Gray MD / King Gray MD Interpreting Provider: King Gray MD Cervical Spine CT 11/16/18 09:07 IMPRESSION: 1.No acute abnormality of the cervical spine. D/ / Сергей Machado MD / Сергей Machado MD Interpreting Provider: Сергей Machado MD Chest CTA 11/16/18 09:42 IMPRESSION: Very small nonobstructing pulmonary embolism to the medial segment of the right middle lobe. At least mild increase in the size of the very large malignant mass in the medial base of the right middle lobe and right lower lobe. Several bibasilar pulmonary metastases present. Complete occlusion of the bronchus intermedius by adjacent adenopathy now present with developing postobstructive pneumonia or atelectasis. Slight pulmonary vascular congestion. Moderate emphysematous changes.. Very small right pleural effusion decreased in size since the prior study. Small infrarenal abdominal aortic aneurysm. 20 mm right thyroid nodule. RECOMMENDATIONS: For management of fusiform AAA: 3.5-3.9 cm AAA, recommend follow-up every 2 years. 4.0-4.4 cm AAA, recommend follow-up every 12 months and recommend vascular consultation. 4.5-5.4 cm AAA, recommend follow-up every 6 months and recommend vascular consultation. >5.5 cm AAA, recommend referral to vascular specialist. Note: For AAA enlargement of >0.5 cm in 6 months or >1 cm in 1 year, recommend vascular consultation. References: J Am Angy Radiol 2013; 10(10):789-794; J Vasc Surg. 2018; 67:2-77 Thyroid ultrasound would usually be recommended for a nodule of this size; however, the patient's more pressing medical concerns make follow-up significantly less important. D/ / Riky Gonzalez MD / Riky Gonzalez MD Interpreting Provider: Riky Gonzalez MD Chest X-Ray 11/16/18 10:22 IMPRESSION: Right central venous catheter tip projects over the distal SVC. No pneumothorax. 4 mm nodule opacity left upper lobe not well seen on prior exams and can be followed on subsequent CTs. Otherwise stable chest. D/ / Lynn Menjivar MD / Lynn Menjivar MD Interpreting Provider: Lynn Menjivar MD - Summary of Assessment and Plan Summary of Assessment and Plan: Acute loss of consciousness/syncope -I suspect this is due to acute pulmonary embolism -I will view EKG -Cannot rule out a seizure, will obtain EEG, question if patient has underlying [employer] metastases Acute on chronic combined hypoxemic and hypercarbic respiratory failure -Patient continues on ventilatory support -Multifactorial -She has prob post obx pneumonia which is certainly contributing to her hypoxemia as well as underlying COPD, and a new PE -pulm med consult Stage III lung cancer -oncology following Acute pulmonary embolism -on hep gtt -no acute right heart failure on exam, monitor Postobstructive bacterial pneumonia with sepsis -day #1 Zosyn/Vancomycin -follow up cx data -?if needs bronchoscopy -BP improved, drop was likely due to propofol -check Lactic Acid, monitor COPD -no acute exac -aggressive BD therapy. monitor Elevated ammonia level -Unclear etiology, no documented history of liver disease -He is mentating an awake and alert, I will repeat Chronic back pain -home meds, monitor -?underlying mets DVT prophy -on hep gtt Full Code I discussed the case with Dr Mclaughlin, Pulm/Critical Care at bedside - Time Spent With Patient Total time spent is greater than 50% in coordination of care (as documented) at patient's floor/unit and/or counseling patient: Greater than 35 minutes
[2018-11-16] MEDS: FentaNYL (PF) 1,000 MCG in 0.9 % Sodium Chloride 80 ML IVC SCH (14:25)
--- NOTE | 2018-11-16 14:42 | Pulmonology Consult Note ---
<Travis Manriquez L - Last Filed: 11/16/18 16:22> Date of Encounter: 11/16/18 Time of Encounter: 14:37 Assessment and Plan (1) Respiratory failure requiring intubation Current Visit: Yes Status: Acute Resp failure - Secondary to PE/PNA/ Lung mass - Continue vent support - ABG: pH 7.34, pCO2: 59 - CTA: PE, large malignant R-sided mass, post-obstructive PNA, slight pulmonary vascular congestion. - Vanc and zosyn day 1 - Duonebs q4h - Heparin gtt - Symbicort BID (2) Lung cancer Current Visit: Yes Status: Acute Lung Cancer - Adenocarcinoma R lung - Diagnosed with Biopsy on 11/07/18 - Outpatient work-up with Oncology/pulmonology in progress Qualifiers: Laterality: right Lung location: lower lobe of lung Qualified Code(s): C34.31 - Malignant neoplasm of lower lobe, right bronchus or lung (3) Acute pulmonary embolism Current Visit: Yes Status: Acute Acute PE - Small PE on CTA - Heparin gtt - high-risk with Cancer Hx Qualifiers: Pulmonary embolism type: other Acute cor pulmonale presence: without acute cor pulmonale Qualified Code(s): I26.99 - Other pulmonary embolism without acute cor pulmonale (4) Postobstructive pneumonia Current Visit: Yes Status: Acute Pneumonia - Blood and sputum cultures pending - Vanc and zosyin day 1 - Possible cause of respiratory failure and hypotension - Lactic Acid 1.3 (5) Sepsis Current Visit: Yes Status: Acute Sepsis - Tachycardia, respiratory distress and hypotension in the setting of PNA and PE - As above Qualifiers: Sepsis type: sepsis due to unspecified organism Sepsis acute organ dysfunction status: with acute organ dysfunction Severe sepsis acute organ dysfunction type: acute respiratory failure Acute respiratory failure type: with hypercapnia Severe sepsis shock status: with septic shock Qualified Code(s): A41.9 - Sepsis, unspecified organism; R65.21 - Severe sepsis with septic shock; J96.02 - Acute respiratory failure with hypercapnia (6) COPD (chronic obstructive pulmonary disease) Current Visit: Yes Status: Acute Hx of COPD - Duonebs - symbicort Qualifiers: COPD type: COPD with acute lower respiratory infection Qualified Code(s): J44.0 - Chronic obstructive pulmonary disease with acute lower respiratory infection (7) Serum ammonia increased Current Visit: Yes Status: Acute Elevated ammonia - Unclear etiology - Altered mental status on presentation - Awake and alert in the ICU (8) Chronic back pain Current Visit: Yes Status: Acute Hx of chronic back pain Qualifiers: Back pain location: back pain in unspecified location Back pain laterality: unspecified Qualified Code(s): M54.9 - Dorsalgia, unspecified; G89.29 - Other chronic pain (9) DVT prophylaxis Current Visit: Yes Status: Acute On heparin drip (10) Altered mental status Current Visit: Yes Status: Acute EEG ordered Qualifiers: Altered mental status type: unspecified Qualified Code(s): R41.82 - Altered mental status, unspecified History of Present Illness Consult date: 11/16/18 History of present illness: Rancho Kumar is a 68-year-old female with past medical history of COPD, and a new diagnosis of stage III lung cancer. She collapsed today while on the way to a furnace maintenance appointment. She was unresponsive with respiratory distress, her reports that she was gasping for air and never ceased breathing. Her also stated that her eyes rolled back in her head but she did not have any other seizure-like activity. She was brought to the emergency room by EMS. She was intubated intubated upon arrival to the emergency room. In the ED, she was afebrile, tachycardic at 107, At 21, blood pressure was 137/68, and her O2 was 98% on 50% FiO2 via mechanical ventilation. Initial labs indicated leukocytosis 15.6, anemia with hemoglobin 11.2. Blood gas revealed a PCO2 of 59 and a pH of 7.34. Electrolytes were unremarkable, other than glucose at 186. She also had an elevated AST of 40, elevated alkaline phosphatase 114, elevated ammonia at 120, elevated troponin at 0.08, elevated BNP at 261. Bedside echocardiogram revealed near-complete emptying left ventricle with normal systolic function. Initial hypotension improved with IV fluids. CT of the head was unremarkable chest CT showed a small nonobstructing pulmonary embolism, and what appears to be increasing size of malignant mass in the medial base of the right middle lobe and right lower lobe, and evidence of postobstructive pneumonia. After being transferred to the ICU patient is in stable condition on norepinephrine for pressure support and mild sedation. She was awake and alert for exam. Able to answer yes or no questions. is at bedside. reports that patient has had increased cough and sputum production for the last few days, with some voice changes and increased or back pain. Past Med Surg Social Fam HX - Past Medical History Medical history: cancer Additional medical history: stage 3 lung cancer Psychiatric history: no psych history - Past Surgical History Surgical History: no surgical history - Social History Smoking Status: Former smoker Smokeless Tobacco Status: No Alcohol use: none Drug use: none Medications and Allergies Albuterol Sulfate [Ventolin Hfa] 2 inh IH Q6H PRN 11/16/18 [History] Budesonide/Formoterol 160/4.5 [Symbicort 160/4.5] 2 puff IH BIDR 11/16/18 [History] Folic Acid 1 mg PO DAILY 11/16/18 [History] PredniSONE [Deltasone] 20 mg PO DAILY 11/16/18 [History] Allergy/AdvReac Type Severity Reaction Status Date / Time No Known Allergies Allergy Verified 11/16/18 09:21 All Systems: The remainder of the systems were reviewed and are negative Physical Examination Vital Signs: Vital Signs, Last 4 Hours Temp Pulse Resp BP Pulse Ox 11/16/18 12:30 98.6 F 70 16 119/78 100 11/16/18 11:08 16 101/81 100 11/16/18 10:56 73 16 106/71 100 Gen: Vitals noted. Hypotensive on vassopressor support. Intubated and sedated Eyes: anicteric sclerae, moist conjunctivae.Pupils 4-5mm, round, equal and reactive to light HENT: Atraumatic, normocephalic; oropharynx clear with moist mucous membranes and no mucosal ulcerations. Neck: Trachea midline; supple, no thyromegaly or lymphadenopathy Cardiac: RRR, no murmurs, rubs or gallops, S1/S2 Pulmonary: Coarse mechanical breath sounds with crackles BL. Copious white/yellow secretions Abdomen: soft, nontender, no rigidity or guarding. No masses or hepatosplenomegaly MSK: ROM intact, no joint swelling noted Extremities: no BLE edema, nontender calf, no cyanosis or clubbing Skin: Normal temperature, turgor and texture; no rash, ulcers or subcutaneous nodules Neuro: moves all extremities, no focal deficits. Vega 2 on sedation Psych: unable to assess Analgesia: Fentanyl Sedation: Versed, propofol SBT: None Glycemic control: none Bowl regimen: None Activity: none Fluids: None Electrolytes: replete as necessary Nutrition: holding GI ppx: PPI Lines: R IJ, 3xPIV Tubes: ETT, Win Consults: pulm Code: Full Dispo: ICU Ventilator Settings Ventilator Settings: Ventilator Settings, Last 8 Hours Ventilator Tidal Volume 500 Setting Ventilator Tidal Volume 500 Setting Ventilator Tidal Volume 500 Setting Ventilator Respiratory Rate 16 Setting Ventilator Respiratory Rate 12 Setting Ventilator Respiratory Rate 12 Setting Actual Respiratory Rate 16 Actual Respiratory Rate 12 Positive End Expiratory 5 Pressure Positive End Expiratory 5 Pressure Positive End Expiratory 5 Pressure Peak Inspiratory Airway 36 Pressure Peak Inspiratory Airway 55 Pressure Results - Laboratory Findings CBC and BMP: 11/16/18 08:25 11/16/18 09:15 ABG ABG pH 7.34 pH Units (7.32-7.45) 11/16/18 09:24 ABG pCO2 59 mmHg (35-45) H 11/16/18 09:24 ABG pO2 122 mmHg (85-104) H 11/16/18 09:24 ABG O2 Saturation 98 % (95-98) 11/16/18 09:24 PT/INR, D-dimer PT 15.1 Seconds (9.4-12.1) H 11/16/18 08:25 Abnormal lab findings: Abnormal lab results WBC 15.6 K/mcL (4.3-11.1) H 11/16/18 08:25 Hgb 11.2 g/dL (11.5-15.4) L 11/16/18 08:25 MCH 25.5 pg (28.0-33.3) L 11/16/18 08:25 MCHC 28.8 g/dL (31.6-35.5) L 11/16/18 08:25 RDW 14.7 % (11.5-14.5) H 11/16/18 08:25 Neutrophils # 13.2 K/mcL (1.6-8.9) H 11/16/18 08:25 Monocytes # 1.5 K/mcL (0.0-1.3) H 11/16/18 08:25 Polychromasia 1+ (Not Present) A 11/16/18 08:25 Hypochromasia Present (Not Present) A 11/16/18 08:25 PT 15.1 Seconds (9.4-12.1) H 11/16/18 08:25 APTT 24.9 Seconds (26.0-36.0) L 11/16/18 08:25 ABG pCO2 59 mmHg (35-45) H 11/16/18 09:24 ABG pO2 122 mmHg (85-104) H 11/16/18 09:24 ABG HCO3 32 mEq/L (21-27) H 11/16/18 09:24 ABG Total CO2 33 mEq/L (20-26) H 11/16/18 09:24 ABG Base Excess 4 mEq/L (-2 to 3) H 11/16/18 09:24 BUN/Creatinine Ratio 32 (6-26) H 11/16/18 09:15 Glucose 186 mg/dL (70-105) H 11/16/18 09:15 Calculated Osmolality 305 (280-300) H 11/16/18 09:15 AST 40 Units/L (13-39) H 11/16/18 09:15 Alkaline Phosphatase 114 Units/L (34-104) H 11/16/18 09:15 Ammonia 120 mcmol/L (16-53) H 11/16/18 09:18 Troponin I 0.08 ng/mL (< 0.04) H* 11/16/18 09:15 B-Natriuretic Peptide 261 pg/mL (Less than 100) H 11/16/18 08:05 Albumin 3.4 g/dL (3.5-5.7) L 11/16/18 09:15 Globulin 3.7 g/dL (2.4-3.5) H 11/16/18 09:15 Albumin/Globulin Ratio 0.9 (1.1-2.2) L 11/16/18 09:15 Urine Protein 100 mg/dL (Neg-Trace) H 11/16/18 08:36 Urine Blood Trace (Negative) H 11/16/18 08:36 Granular Casts Few per lpf (None Seen) H 11/16/18 08:36 Ur Culture Indicated? YES (NO) A 11/16/18 08:36 - Microbiology Findings Microbiology Findings: Microbiology, Last 48 Hours 11/16/18 08:36 Urine Culture - Preliminary Urine,Catheterized (Straight) Culture is incubating. 11/16/18 08:25 Blood Culture - Preliminary Peripheral Venipuncture Culture is incubating and being continuously monitored for growth. Final report to follow. 11/16/18 10:34 Blood Culture - Preliminary Peripheral Venipuncture Culture is incubating and being continuously monitored for growth. Final report to follow. - Clinical Findings Intake & Output: Intake & Output 11/15/18 11/16/18 11/16/18 23:59 07:59 15:59 Intake Total 1464.4 / 1464.4 Balance 1464.4 / 1464.4 Weight 80.286 kg Consult Discharge Plan - Plan Referrals: Jeff Dhillon MD [Primary Care Provider] - <Gato Mclaughlin - Last Filed: 11/16/18 23:21> Date of Encounter: 11/16/18 All Systems: The remainder of the systems were reviewed and are negative Physical Examination Vital Signs: Vital Signs, Last 4 Hours Pulse Resp BP Pulse Ox 11/16/18 22:00 65 20 121/69 96 11/16/18 21:32 20 116/72 94 11/16/18 21:00 69 20 155/81 94 11/16/18 20:00 70 20 146/77 95 11/16/18 19:46 20 100/71 96 Ventilator Settings Ventilator Settings: Ventilator Settings, Last 8 Hours Ventilator Tidal Volume 380 Setting Ventilator Tidal Volume 380 Setting Ventilator Tidal Volume 380 Setting Ventilator Tidal Volume 380 Setting Ventilator Tidal Volume 380 Setting Ventilator Tidal Volume 380 Setting Ventilator Tidal Volume 380 Setting Ventilator Tidal Volume 380 Setting Ventilator Tidal Volume 500 Setting Ventilator Tidal Volume 500 Setting Ventilator Tidal Volume 400 Setting Ventilator Respiratory Rate 20 Setting Ventilator Respiratory Rate 20 Setting Ventilator Respiratory Rate 20 Setting Ventilator Respiratory Rate 20 Setting Ventilator Respiratory Rate 20 Setting Ventilator Respiratory Rate 20 Setting Ventilator Respiratory Rate 20 Setting Ventilator Respiratory Rate 16 Setting Ventilator Respiratory Rate 16 Setting Actual Respiratory Rate 20 Actual Respiratory Rate 20 Actual Respiratory Rate 20 Actual Respiratory Rate 20 Actual Respiratory Rate 20 Actual Respiratory Rate 20 Actual Respiratory Rate 20 Actual Respiratory Rate 16 Positive End Expiratory 5 Pressure Positive End Expiratory 5 Pressure Positive End Expiratory 5 Pressure Positive End Expiratory 5 Pressure Positive End Expiratory 5 Pressure Positive End Expiratory 5 Pressure Positive End Expiratory 5 Pressure Positive End Expiratory 5 Pressure Positive End Expiratory 5 Pressure Positive End Expiratory 5 Pressure Positive End Expiratory 5 Pressure Peak Inspiratory Airway 37 Pressure Peak Inspiratory Airway 37 Pressure Peak Inspiratory Airway 37 Pressure Peak Inspiratory Airway 36 Pressure Peak Inspiratory Airway 39 Pressure Peak Inspiratory Airway 35 Pressure Peak Inspiratory Airway 34 Pressure Peak Inspiratory Airway 35 Pressure Peak Inspiratory Airway 35 Pressure Peak Inspiratory Airway 31 Pressure Results - Laboratory Findings CBC and BMP: 11/16/18 08:25 11/16/18 09:15 ABG ABG pH 7.38 pH Units (7.32-7.45) 11/16/18 18:03 ABG pCO2 50 mmHg (35-45) H 11/16/18 18:03 ABG pO2 74 mmHg (85-104) L 11/16/18 18:03 ABG O2 Saturation 94 % (95-98) L 11/16/18 18:03 PT/INR, D-dimer PT 15.1 Seconds (9.4-12.1) H 11/16/18 08:25 Abnormal lab findings: Abnormal lab results WBC 15.6 K/mcL (4.3-11.1) H 11/16/18 08:25 Hgb 11.2 g/dL (11.5-15.4) L 11/16/18 08:25 MCH 25.5 pg (28.0-33.3) L 11/16/18 08:25 MCHC 28.8 g/dL (31.6-35.5) L 11/16/18 08:25 RDW 14.7 % (11.5-14.5) H 11/16/18 08:25 Neutrophils # 13.2 K/mcL (1.6-8.9) H 11/16/18 08:25 Monocytes # 1.5 K/mcL (0.0-1.3) H 11/16/18 08:25 Polychromasia 1+ (Not Present) A 11/16/18 08:25 Hypochromasia Present (Not Present) A 11/16/18 08:25 PT 15.1 Seconds (9.4-12.1) H 11/16/18 08:25 APTT 24.9 Seconds (26.0-36.0) L 11/16/18 08:25 ABG pCO2 50 mmHg (35-45) H 11/16/18 18:03 ABG pO2 74 mmHg (85-104) L 11/16/18 18:03 ABG HCO3 29 mEq/L (21-27) H 11/16/18 18:03 ABG Total CO2 31 mEq/L (20-26) H 11/16/18 18:03 ABG O2 Saturation 94 % (95-98) L 11/16/18 18:03 ABG Base Excess 4 mEq/L (-2 to 3) H 11/16/18 09:24 BUN/Creatinine Ratio 32 (6-26) H 11/16/18 09:15 Glucose 186 mg/dL (70-105) H 11/16/18 09:15 Hemoglobin A1c 6.5 % (-5.6) H 11/16/18 17:04 Calculated Osmolality 305 (280-300) H 11/16/18 09:15 AST 40 Units/L (13-39) H 11/16/18 09:15 Alkaline Phosphatase 114 Units/L (34-104) H 11/16/18 09:15 Ammonia 120 mcmol/L (16-53) H 11/16/18 09:18 Troponin I 0.08 ng/mL (< 0.04) H* 11/16/18 09:15 B-Natriuretic Peptide 261 pg/mL (Less than 100) H 11/16/18 08:05 Albumin 3.4 g/dL (3.5-5.7) L 11/16/18 09:15 Globulin 3.7 g/dL (2.4-3.5) H 11/16/18 09:15 Albumin/Globulin Ratio 0.9 (1.1-2.2) L 11/16/18 09:15 Urine Protein 100 mg/dL (Neg-Trace) H 11/16/18 08:36 Urine Blood Trace (Negative) H 11/16/18 08:36 Granular Casts Few per lpf (None Seen) H 11/16/18 08:36 Ur Culture Indicated? YES (NO) A 11/16/18 08:36 - Microbiology Findings Microbiology Findings: Microbiology, Last 48 Hours 11/16/18 20:00 Sputum Culture - Preliminary Sputum 11/16/18 08:36 Urine Culture - Preliminary Urine,Catheterized (Straight) Culture is incubating. 11/16/18 08:25 Blood Culture - Preliminary Peripheral Venipuncture Culture is incubating and being continuously monitored for growth. Final report to follow. 11/16/18 10:34 Blood Culture - Preliminary Peripheral Venipuncture Culture is incubating and being continuously monitored for growth. Final report to follow. - Clinical Findings Intake & Output: Intake & Output 11/16/18 11/16/18 11/16/18 07:59 15:59 23:59 Intake Total 1642.4 / 2222.0 579.6 / 2222.0 Output Total 125 / 175 50 / 175 Balance 1517.4 / 2047.0 529.6 / 2047.0 Weight 80.286 kg - Attending Attestation I saw and evaluated this patient and my medical decision-making was reviewed with the Resident Physician. I agree with the documented findings, disposition and treatment plan as described except to the extent set forth below. We independently had [id number] contact with the patient I spent 40 minutes of Critical Care time with this patient. It involved decision making of high complexity to assess, manipulate, and support vital organ system failure and/or to prevent further life threatening deterioration of the patient's condition. The time involved in the performance of separately reportable procedures was not counted toward critical care time. Patient seen and examined at bedside Labs, radiology, chart personally reviewed. Management was reviewed during multidisciplinary critical care rounds. MIS DIRECTOR: Patient is intubated , mechanically ventilated patient intubated and sedated. No focal neurological deficit no clinical seizure activity concern for brain metastasis because of the recently diagnosed lung cancer CT scan did not show any evidence of metastasis or edema. EEG did not show any evidence of focal epileptiform activities. Pulm: Patient has acceptable oxygenation and ventilation adjusted to low tidal volume strategy at this the minute ventilation. Patient may have a component of hydrostatic pulmonary edema postobstructive pneumonia enlarging right-sided lung mass complicated by small right middle lobe segmental branches pulmonary embolism patient is hemodynamically stable patient has significant bronchospasm to give every 2 bronchodilators Cards: Patient has pulmonary embolism patient was hemodynamically stable now and being intubated and mechanical ventilated patient is having some soft pressures. We will get the echocardiogram to check for RV function and LV function. FEN-GI: To keep her nothing by mouth Renal: Labs and output were reviewed ID: To cover with broad-spectrum antibiotics for postobstructive pneumonia to continue with Vanco and Zosyn. To do pancultures and follow-up. Heme/Onc: Labs reviewed, patient has recently diagnosed adenocarcinoma of lung patient is following up with oncology Endo: Glucose Monitored Integ/MSK: Skin Care per routine ICU Nursing Protocol to prevent ulcers. Lines: All lines examined without evidence of infection : Dispo: critically ill CODE: Full code
[2018-11-16] MEDS ORDERED: D5% in Water 1,000 ML IVC PRN (15:19)
[2018-11-16] MEDS ORDERED: Dextrose Gel 15 GM/37.5 ML TUBE PO PRN ×2 (15:19)
[2018-11-16] MEDS ORDERED: *HR* Dextrose 50 % in Water (Syg) 50 ML SYRINGE IVP PRN (15:19)
[2018-11-16] MEDS ORDERED: FLU Vac QV 19-20 (6Month+)/PF 0.5 ML SYRINGE IM ONE (16:02)
--- NOTE | 2018-11-16 16:34 | EEG/EMG/Oth Biometrics Report ---
EEG Procedure Report EEG Procedure: Routine EEG Procedure Note: Routine 21-channel digital EEG was obtained to rule out any seizure activity or focal abnormalities. FINDINGS: Background rhythm during awake stage shows poorly organized, low voltage theta intermixed with delta activity in the posterior and anterior barbra ons, intermixed with theta activity No [id number] discharges or any lateralizing abnormalities are seen. EMG artifacts and tremor artifacts are noted. Photic stimulation did not produce any abnormalities. Stage II sleep was not observed. The patient was noted by the fresh foods technician to be restless and moving all the time during the study. . IMPRESSION: No clear paroxysmal activities or epileptiform discharges were seen. Prominent theta activity noted, which is a nonspecific pattern usually associated with diffuse cortical dysfunction as commonly seen in the patient with metabolic toxic encephalopathy, at the same time it could be seen in the postictal state as well as medication side effect, clinical correlation is suggested.
[2018-11-16 17:37] LABS: Estimated Average Glucose 140 mg/dl
[2018-11-16] MEDS: Artificial Tears SOLN 15 ML BOTTLE BOTH EYES SCH ×3 (17:57→23:19)
[2018-11-16] MEDS: Insulin LISPRO 300 UNITS/3 ML VIAL SQ SCH ×2 (17:57→23:27)
[2018-11-16] MEDS: Piperacillin/Tazobactam 3.375 GM in 0.9 % Sodium Chloride Mini Bag 100 ML IVPB SCH (17:58)
[2018-11-16 18:06] LABS: ABG Base Excess 3 mEq/L (-2 to 3); ABG HCO3 29 mEq/L (21-27); ABG Oxygen Saturation 94 % (95-98); ABG PCO2 50 mmHg (35-45); ABG PH 7.38 pH Units (7.32-7.45); ABG PO2 74 mmHg (85-104); ABG TCO2 31 mEq/L (20-26); Blood Gas Modality AF; Blood Gas PEEP 5 cm H2O; Blood Gas VT 380 cc
[2018-11-16] MEDS ORDERED: MethylPREDNISolone 40 MG/ML VIAL ONE (18:33)
[2018-11-16] MEDS ORDERED: 0.9 % Sodium Chloride 1,000 ML ONE (18:33)
[2018-11-16] MEDS: MethylPREDNISolone 40 MG/ML VIAL IVP SCH ×2 (19:18→23:29)
[2018-11-16] MEDS: 0.9 % Sodium Chloride 1,000 ML IVC SCH (19:19)
[2018-11-16] MEDS: Budesonide/Formoterol 160/4.5 1 PUFF INH IH SCH (19:46)
[2018-11-16] MEDS: Chlorhexidine Rinse 15 ML MOUTHWASH MM SCH (19:58)
[2018-11-17] MEDS: Piperacillin/Tazobactam 3.375 GM in 0.9 % Sodium Chloride Mini Bag 100 ML IVPB SCH ×3 (02:58→20:48)
[2018-11-17] MEDS: Artificial Tears SOLN 15 ML BOTTLE BOTH EYES SCH ×6 (03:01→23:49)
[2018-11-17 04:32] LABS: Hematocrit 33.4 % (35.3-44.9); Hemoglobin 10.1 g/dL (11.5-15.4); Mean Corpuscular HGB Conc 30.2 g/dL (31.6-35.5); Mean Corpuscular Hemoglobin 25.8 pg (28.0-33.3); Mean Corpuscular Volume 85.4 fL (83.0-100.0); Mean Platelet Volume 11.3 fL (9.4-12.4); Monocytes # 0.3 K/mcL (0.0-1.3); Platelet Count 285 K/mcL (140-400); Red Blood Count 3.91 M/mcL (3.82-4.97); Red Cell Distribution Width 15.3 % (11.5-14.5); White Blood Count 13.2 K/mcL (4.3-11.1)
[2018-11-17 04:44] LABS: BUN/Creatinine Ratio 31 (6-26); Blood Urea Nitrogen 28 mg/dL (8-23); Calcium 8.8 mg/dL (8.6-10.3); Carbon Dioxide 29 mEq/L (23-29); Chloride 106 mEq/L (98-107); Glucose 168 mg/dL (70-105); Osmolality,Calculated 299 (280-300); Potassium 3.8 mEq/L (3.5-5.1); Sodium 140 mEq/L (136-145); eGFR For African Americans > 60 (> 60); eGFR For Non-African Americans > 60 (> 60)
[2018-11-17 04:45] LABS: ABG Base Excess 5 mEq/L (-2 to 3); ABG HCO3 30 mEq/L (21-27); ABG Oxygen Saturation 99 % (95-98); ABG PCO2 41 mmHg (35-45); ABG PH 7.46 pH Units (7.32-7.45); ABG PO2 115 mmHg (85-104); ABG TCO2 31 mEq/L (20-26); Blood Gas Modality PRVC; Blood Gas PEEP 5 cm H2O; Blood Gas VT 380 cc
[2018-11-17] MEDS: Insulin LISPRO 300 UNITS/3 ML VIAL SQ SCH ×4 (05:31→23:49)
[2018-11-17 05:33] LABS: Lymphocytes # 0.3 K/mcL (0.6-4.6); Neutrophils # 12.7 K/mcL (1.6-8.9); Platelet Estimate Normal (Normal); Smudge Cells Present (Not Present); Toxic Vacuolation Present (Not Present)
[2018-11-17] MEDS: Heparin 25,000 UNIT/250 ML D5W 25,000 UNIT/250 ML IV.SOLN IVC SCH (05:55)
[2018-11-17] MEDS: 0.9 % Sodium Chloride 1,000 ML IVC SCH ×2 (06:04→20:49)
[2018-11-17] MEDS: Budesonide/Formoterol 160/4.5 1 PUFF INH IH SCH ×2 (07:31→20:00)
[2018-11-17] MEDS: Chlorhexidine Rinse 15 ML MOUTHWASH MM SCH ×2 (08:07→20:50)
[2018-11-17] MEDS: MethylPREDNISolone 40 MG/ML VIAL IVP SCH ×2 (08:08→16:27)
[2018-11-17] MEDS: Pantoprazole 40 MG VIAL IVP SCH (08:08)
[2018-11-17 08:29] LABS: Albumin 2.7 g/dL (3.5-5.7); Albumin/Globulin Ratio 0.9 (1.1-2.2); Bilirubin,Direct 0.1 mg/dL (0.0-0.2); Bilirubin,Indirect 0.3 mg/dL (0.0-1.2); Bilirubin,Total 0.4 mg/dL (0.3-1.0); Globulin 2.9 g/dL (2.4-3.5); Total Protein 5.6 g/dL (6.4-8.9)
[2018-11-17] MEDS ORDERED: *HR* Etomidate 20 MG/10 ML AMPUL IVP ONE (08:37)
[2018-11-17] MEDS ORDERED: *HR* Rocuronium Bromide 100 MG/10 ML VIAL IVC ONE (08:37)
[2018-11-17] MEDS ORDERED: Acetaminophen 325 MG TABLET PO PRN (08:48)
--- NOTE | 2018-11-17 09:52 | Pulmonology Progress Note ---
<FerrerTobias S - Last Filed: 11/17/18 14:00> Date of Encounter: 11/17/18 Time of Encounter: 09:52 Assessment and Plan (1) Respiratory failure requiring intubation Current Visit: Yes Status: Acute Trial on CPAP failed this morning after 30 minutes Maintaining adequate oxygenation with current ventilator settings, plateau pressure approximately 25 Suctioned secretions are very thick * Bronchoscopy with BAL this afternoon * Awaiting results of sputum cultures * Awaiting echo report * Start tube feeds with consult to dietary services today (2) Acute pulmonary embolism Current Visit: Yes Status: Acute CTA performed in the ED showed "very small nonobstructing filling defect in pulmonary artery to medial segment of right middle lobe" * Continue heparin drip until bronchoscopy, hold during the procedure and thereafter for at least 2 hours * Continue to monitor oxygenation * Planning for chronic anticoagulation at a later date in conjunction with oncology * Intubation sedation with propofol and fentanyl Qualifiers: Pulmonary embolism type: other Acute cor pulmonale presence: without acute cor pulmonale Qualified Code(s): I26.99 - Other pulmonary embolism without acute cor pulmonale (3) Postobstructive pneumonia Current Visit: Yes Status: Acute Pneumonia seen on imaging White blood cell count 13.2, yesterday was 15.6 Lactic acid was normal Blood cultures pending * BAL this afternoon * Zosyn and vancomycin until antibiotic sensitivities are known * Continue to monitor CBCs * Acetaminophen when necessary for fever (4) Serum ammonia increased Current Visit: Yes Status: Resolved Ammonia level resolved, repeat today was 46. Unknown etiology of her elevated ammonia on presentation * Consider recheck if mental status declines Subjective Principal diagnosis: Respiratory Failure Interval history: Ms. Kumar is a 68-year-old female with recent diagnosis of stage III lung cancer admitted to our service after suffering a syncopal episode. She was intubated for respiratory failure, Subsequent imaging revealed postobstructive pneumonia and a small pulmonary embolism. She is doing well today, sedation was decreased, she is able to write responses, and was able to correctly identify the month. She nods and shakes her head appropriately, and appears oriented but drowsy. She complains of a sore throat, has mentioned this complaint several times. Her daughter and close family friend flew up from [place], and had lots of questions for me at the bedside. She states she is not having any chest pain or tightness, abdominal pain, moves all 4 extremities to commands Objective PUL Vital signs: Last Vital Signs Temp 98.2 F 11/17/18 07:25 Pulse 72 11/17/18 08:00 Resp 16 11/17/18 08:00 BP 134/82 11/17/18 08:00 Pulse Ox 98 11/17/18 08:00 General appearance: other (Intubated, drowsy) Eyes: nonicteric ENT: oropharynx moist Neck: no JVD Effort: other (Intubated. ) Auscultation: right: diminished breath sounds (Significantly decreased breath sounds in the right mid.), bilateral: rhonchi (Right worse than left) Cardiovascular: regular rate and rhythm Gastrointestinal: soft, non-tender, non-distended Integumentary: normal Extremities: no cyanosis, pulses normal Musculoskeletal: no deformities, other (Muscle strength grossly intact throughout) mood appropriate (Rolls her eyes to jovial ribbing by her daughter, responds yes and no appropriately) Ventilator Settings Ventilator Settings: Ventilator Settings, Last 8 Hours Ventilator Tidal Volume 380 Setting Ventilator Tidal Volume 380 Setting Ventilator Tidal Volume 380 Setting Ventilator Tidal Volume 380 Setting Ventilator Tidal Volume 380 Setting Ventilator Tidal Volume 380 Setting Ventilator Tidal Volume 380 Setting Ventilator Tidal Volume 380 Setting Ventilator Tidal Volume 380 Setting Ventilator Tidal Volume 380 Setting Ventilator Respiratory Rate 20 Setting Ventilator Respiratory Rate 20 Setting Ventilator Respiratory Rate 20 Setting Ventilator Respiratory Rate 20 Setting Ventilator Respiratory Rate 20 Setting Ventilator Respiratory Rate 20 Setting Ventilator Respiratory Rate 20 Setting Ventilator Respiratory Rate 20 Setting Ventilator Respiratory Rate 20 Setting Ventilator Respiratory Rate 20 Setting Actual Respiratory Rate 16 Actual Respiratory Rate 21 Actual Respiratory Rate 20 Actual Respiratory Rate 20 Actual Respiratory Rate 20 Actual Respiratory Rate 20 Actual Respiratory Rate 20 Actual Respiratory Rate 20 Actual Respiratory Rate 20 Positive End Expiratory 5 Pressure Positive End Expiratory 5 Pressure Positive End Expiratory 5 Pressure Positive End Expiratory 5 Pressure Positive End Expiratory 5 Pressure Positive End Expiratory 5 Pressure Positive End Expiratory 5 Pressure Positive End Expiratory 5 Pressure Positive End Expiratory 5 Pressure Positive End Expiratory 5 Pressure Peak Inspiratory Airway 32 Pressure Peak Inspiratory Airway 33 Pressure Peak Inspiratory Airway 33 Pressure Peak Inspiratory Airway 34 Pressure Peak Inspiratory Airway 33 Pressure Peak Inspiratory Airway 36 Pressure Peak Inspiratory Airway 36 Pressure Peak Inspiratory Airway 41 Pressure Peak Inspiratory Airway 38 Pressure Results - Laboratory Findings CBC and BMP: 11/17/18 04:00 11/17/18 04:00 ABG ABG pH 7.46 pH Units (7.32-7.45) H 11/17/18 04:43 ABG pCO2 41 mmHg (35-45) 11/17/18 04:43 ABG pO2 115 mmHg (85-104) H 11/17/18 04:43 ABG O2 Saturation 99 % (95-98) H 11/17/18 04:43 PT/INR, D-dimer PT 15.1 Seconds (9.4-12.1) H 11/16/18 08:25 Abnormal lab findings: Abnormal lab results WBC 13.2 K/mcL (4.3-11.1) H 11/17/18 04:00 Hgb 10.1 g/dL (11.5-15.4) L 11/17/18 04:00 Hct 33.4 % (35.3-44.9) L 11/17/18 04:00 MCH 25.8 pg (28.0-33.3) L 11/17/18 04:00 MCHC 30.2 g/dL (31.6-35.5) L 11/17/18 04:00 RDW 15.3 % (11.5-14.5) H 11/17/18 04:00 Band Neutrophils % 16.0 % (0-4) H 11/17/18 04:00 Neutrophils # 12.7 K/mcL (1.6-8.9) H 11/17/18 04:00 Lymphocytes # 0.3 K/mcL (0.6-4.6) L 11/17/18 04:00 Monocytes # 1.5 K/mcL (0.0-1.3) H 11/16/18 08:25 Smudge Cells Present (Not Present) A 11/17/18 04:00 Toxic Vacuolation Present (Not Present) A 11/17/18 04:00 Polychromasia 1+ (Not Present) A 11/16/18 08:25 Hypochromasia Present (Not Present) A 11/16/18 08:25 PT 15.1 Seconds (9.4-12.1) H 11/16/18 08:25 APTT 24.9 Seconds (26.0-36.0) L 11/16/18 08:25 ABG pH 7.46 pH Units (7.32-7.45) H 11/17/18 04:43 ABG pCO2 50 mmHg (35-45) H 11/16/18 18:03 ABG pO2 115 mmHg (85-104) H 11/17/18 04:43 ABG HCO3 30 mEq/L (21-27) H 11/17/18 04:43 ABG Total CO2 31 mEq/L (20-26) H 11/17/18 04:43 ABG O2 Saturation 99 % (95-98) H 11/17/18 04:43 ABG Base Excess 5 mEq/L (-2 to 3) H 11/17/18 04:43 BUN 28 mg/dL (8-23) H 11/17/18 04:00 BUN/Creatinine Ratio 31 (6-26) H 11/17/18 04:00 Glucose 168 mg/dL (70-105) H 11/17/18 04:00 POC Glucose 135 mg/dL (70-99) H 11/16/18 23:26 Hemoglobin A1c 6.5 % (-5.6) H 11/16/18 17:04 Calculated Osmolality 305 (280-300) H 11/16/18 09:15 AST 40 Units/L (13-39) H 11/16/18 09:15 Alkaline Phosphatase 114 Units/L (34-104) H 11/16/18 09:15 Ammonia 120 mcmol/L (16-53) H 11/16/18 09:18 Troponin I 0.08 ng/mL (< 0.04) H* 11/16/18 09:15 B-Natriuretic Peptide 261 pg/mL (Less than 100) H 11/16/18 08:05 Serum Total Protein 5.6 g/dL (6.4-8.9) L 11/17/18 07:55 Albumin 2.7 g/dL (3.5-5.7) L 11/17/18 07:55 Globulin 3.7 g/dL (2.4-3.5) H 11/16/18 09:15 Albumin/Globulin Ratio 0.9 (1.1-2.2) L 11/17/18 07:55 Urine Protein 100 mg/dL (Neg-Trace) H 11/16/18 08:36 Urine Blood Trace (Negative) H 11/16/18 08:36 Granular Casts Few per lpf (None Seen) H 11/16/18 08:36 Ur Culture Indicated? YES (NO) A 11/16/18 08:36 - Microbiology Findings Microbiology Findings: Microbiology, Last 48 Hours 11/16/18 20:00 Sputum Culture - Preliminary Sputum 11/16/18 08:36 Urine Culture - Preliminary Urine,Catheterized (Straight) Culture is incubating. 11/16/18 08:25 Blood Culture - Preliminary Peripheral Venipuncture Culture is incubating and being continuously mo nitored for growth. Final report to follow. 11/16/18 10:34 Blood Culture - Preliminary Peripheral Venipuncture Culture is incubating and being continuously monitored for growth. Final report to follow. - Clinical Findings Intake & Output: Intake & Output 11/16/18 11/17/18 11/17/18 23:59 07:59 15:59 Intake Total 630.6 / 2273.0 1521 / 1534 1534 Output Total 350 / 475 300 / 300 Balance 280.6 / 1798.0 1221 / 1234 123 Consult Discharge Plan - Plan Referrals: Jeff Dhillon MD [Primary Care Provider] - <Gato Mclaughlin - Last Filed: 11/17/18 19:48> Date of Encounter: 11/17/18 Objective PUL Vital signs: Last Vital Signs Temp 98.1 F 11/17/18 15:30 Pulse 56 11/17/18 18:00 Resp 20 11/17/18 18:00 BP 113/56 11/17/18 18:00 Pulse Ox 98 11/17/18 18:00 Ventilator Settings Ventilator Settings: Ventilator Settings, Last 8 Hours Ventilator Tidal Volume 380 Setting Ventilator Tidal Volume 380 Setting Ventilator Tidal Volume 380 Setting Ventilator Tidal Volume 380 Setting Ventilator Tidal Volume 380 Setting Ventilator Tidal Volume 380 Setting Ventilator Tidal Volume 380 Setting Ventilator Tidal Volume 380 Setting Ventilator Tidal Volume 380 Setting Ventilator Tidal Volume 380 Setting Ventilator Respiratory Rate 20 Setting Ventilator Respiratory Rate 20 Setting Ventilator Respiratory Rate 20 Setting Ventilator Respiratory Rate 20 Setting Ventilator Respiratory Rate 20 Setting Ventilator Respiratory Rate 20 Setting Ventilator Respiratory Rate 20 Setting Ventilator Respiratory Rate 20 Setting Ventilator Respiratory Rate 20 Setting Ventilator Respiratory Rate 20 Setting Actual Respiratory Rate 20 Actual Respiratory Rate 20 Actual Respiratory Rate 20 Actual Respiratory Rate 16 Actual Respiratory Rate 21 Actual Respiratory Rate 16 Actual Respiratory Rate 16 Actual Respiratory Rate 21 Actual Respiratory Rate 16 Actual Respiratory Rate 16 Positive End Expiratory 5 Pressure Positive End Expiratory 5 Pressure Positive End Expiratory 5 Pressure Positive End Expiratory 5 Pressure Positive End Expiratory 5 Pressure Positive End Expiratory 5 Pressure Positive End Expiratory 5 Pressure Positive End Expiratory 5 Pressure Positive End Expiratory 5 Pressure Positive End Expiratory 5 Pressure Peak Inspiratory Airway 31 Pressure Peak Inspiratory Airway 31 Pressure Peak Inspiratory Airway 32 Pressure Peak Inspiratory Airway 31 Pressure Peak Inspiratory Airway 30 Pressure Peak Inspiratory Airway 30 Pressure Peak Inspiratory Airway 32 Pressure Peak Inspiratory Airway 40 Pressure Peak Inspiratory Airway 40 Pressure Peak Inspiratory Airway 39 Pressure Results - Laboratory Findings CBC and BMP: 11/17/18 04:00 11/17/18 04:00 ABG ABG pH 7.46 pH Units (7.32-7.45) H 11/17/18 04:43 ABG pCO2 41 mmHg (35-45) 11/17/18 04:43 ABG pO2 115 mmHg (85-104) H 11/17/18 04:43 ABG O2 Saturation 99 % (95-98) H 11/17/18 04:43 PT/INR, D-dimer PT 15.1 Seconds (9.4-12.1) H 11/16/18 08:25 Abnormal lab findings: Abnormal lab results WBC 13.2 K/mcL (4.3-11.1) H 11/17/18 04:00 Hgb 10.1 g/dL (11.5-15.4) L 11/17/18 04:00 Hct 33.4 % (35.3-44.9) L 11/17/18 04:00 MCH 25.8 pg (28.0-33.3) L 11/17/18 04:00 MCHC 30.2 g/dL (31.6-35.5) L 11/17/18 04:00 RDW 15.3 % (11.5-14.5) H 11/17/18 04:00 Band Neutrophils % 16.0 % (0-4) H 11/17/18 04:00 Neutrophils # 12.7 K/mcL (1.6-8.9) H 11/17/18 04:00 Lymphocytes # 0.3 K/mcL (0.6-4.6) L 11/17/18 04:00 Monocytes # 1.5 K/mcL (0.0-1.3) H 11/16/18 08:25 Smudge Cells Present (Not Present) A 11/17/18 04:00 Toxic Vacuolation Present (Not Present) A 11/17/18 04:00 Polychromasia 1+ (Not Present) A 11/16/18 08:25 Hypochromasia Present (Not Present) A 11/16/18 08:25 PT 15.1 Seconds (9.4-12.1) H 11/16/18 08:25 APTT 24.9 Seconds (26.0-36.0) L 11/16/18 08:25 ABG pH 7.46 pH Units (7.32-7.45) H 11/17/18 04:43 ABG pCO2 50 mmHg (35-45) H 11/16/18 18:03 ABG pO2 115 mmHg (85-104) H 11/17/18 04:43 ABG HCO3 30 mEq/L (21-27) H 11/17/18 04:43 ABG Total CO2 31 mEq/L (20-26) H 11/17/18 04:43 ABG O2 Saturation 99 % (95-98) H 11/17/18 04:43 ABG Base Excess 5 mEq/L (-2 to 3) H 11/17/18 04:43 BUN 28 mg/dL (8-23) H 11/17/18 04:00 BUN/Creatinine Ratio 31 (6-26) H 11/17/18 04:00 Glucose 168 mg/dL (70-105) H 11/17/18 04:00 POC Glucose 135 mg/dL (70-99) H 11/16/18 23:26 Hemoglobin A1c 6.5 % (-5.6) H 11/16/18 17:04 Calculated Osmolality 305 (280-300) H 11/16/18 09:15 AST 40 Units/L (13-39) H 11/16/18 09:15 Alkaline Phosphatase 114 Units/L (34-104) H 11/16/18 09:15 Ammonia 120 mcmol/L (16-53) H 11/16/18 09:18 Troponin I 0.08 ng/mL (< 0.04) H* 11/16/18 09:15 B-Natriuretic Peptide 261 pg/mL (Less than 100) H 11/16/18 08:05 Serum Total Protein 5.6 g/dL (6.4-8.9) L 11/17/18 07:55 Albumin 2.7 g/dL (3.5-5.7) L 11/17/18 07:55 Globulin 3.7 g/dL (2.4-3.5) H 11/16/18 09:15 Albumin/Globulin Ratio 0.9 (1.1-2.2) L 11/17/18 07:55 Urine Protein 100 mg/dL (Neg-Trace) H 11/16/18 08:36 Urine Blood Trace (Negative) H 11/16/18 08:36 Granular Casts Few per lpf (None Seen) H 11/16/18 08:36 Ur Culture Indicated? YES (NO) A 11/16/18 08:36 Fluid Appearance Cloudy (Clear) A 11/17/18 13:51 - Microbiology Findings Microbiology Findings: Microbiology, Last 48 Hours 11/17/18 13:51 Respiratory Culture - Preliminary Right Middle Lobe Lung 11/17/18 13:51 Fungal Culture - Preliminary Right Middle Lobe Lung Culture is incubating. 11/16/18 20:00 Sputum Culture - Preliminary Sputum 11/16/18 08:36 Urine Culture - Final Urine,Catheterized (Straight) No significant growth. 11/16/18 08:25 Blood Culture - Preliminary Peripheral Venipuncture Culture is incubating and being continuously monit ored for growth. Final report to follow. 11/16/18 10:34 Blood Culture - Preliminary Peripheral Venipuncture Culture is incubating and being continuously monitored for growth. Final report to follow. - Clinical Findings Intake & Output: Intake & Output 11/17/18 11/17/18 11/17/18 07:59 15:59 23:59 Intake Total 1521 / 2562 831 / 2562 210 / 2562 Output Total 300 / 600 300 / 600 Balance 1221 / 1962 531 / 1962 210 / 1962 - Attending Attestation I saw and evaluated this patient and my medical decision-making was reviewed with the Resident Physician. I agree with the documented findings, disposition and treatment plan as described except to the extent set forth below. We independently had [id number] contact with the patient I spent 45 minutes of Critical Care time with this patient. It involved decision making of high complexity to assess, manipulate, and support vital organ system failure and/or to prevent further life threatening deterioration of the patient's condition. The time involved in the performance of separately reportable procedures was not counted toward critical care time. Patient seen and examined at bedside Labs, radiology, chart personally reviewed. Management was reviewed during multidisciplinary critical care rounds. [employer]: Patient is more awake and following commands no evidence of seizure activity EEG also did not show any evidence of focal seizure activity. Pulm: Patient has acceptable oxygenation and ventilation with this worsening white count and bandemia will do an airway examination BAL with bronchoscopy today afternoon. Cards: Patient is hemodynamically stable initially she was on minimal vasopressor therapy FEN-GI: Diet according to nutrition. Renal: Labs and output were reviewed patient has decent urine output. ID: This can be all due to bronchopneumonia symptoms the BAL cultures for Gram stain Heme/Onc: Labs reviewed patient has recently diagnosed lung carcinoma Endo: Glucose Monitored Integ/MSK: Skin Care per routine ICU Nursing Protocol to prevent ulcers. Lines: All lines examined without evidence of infection : Dispo: Patient is critically ill to remain in the ICU CODE: Full Code
--- NOTE | 2018-11-17 10:26 | Emergency Department Note ---
Disposition Clinical Impression: Altered mental status Qualifiers: Altered mental status type: unspecified Qualified Code(s): R41.82 - Altered mental status, unspecified Disposition: Admitted As Inpatient Condition: Critical Time of Disposition: 11:00 General Adult HPI - General Chief complaint: ED Altered Mental Status Stated complaint: unresponsive Time Seen by Provider: 11/16/18 08:18 Source: family, EMS Mode of arrival: EMS Limitations: altered mental status - History of Present Illness HPI Narrative: This is a procedure note. Please refer to resident note on 11/16 for full note. Pain Scale: 0 - Related Data Home Medications Medication Instructions Recorded Confirmed Albuterol Sulfate [Ventolin Hfa] 2 inh IH Q6H PRN 11/16/18 11/16/18 Budesonide/Formoterol 160/4.5 2 puff IH BIDR 11/16/18 11/16/18 [Symbicort 160/4.5] Folic Acid 1 mg PO DAILY 11/16/18 11/16/18 PredniSONE [Deltasone] 20 mg PO DAILY 11/16/18 11/16/18 Allergies Allergy/AdvReac Type Severity Reaction Status Date / Time No Known Allergies Allergy Verified 11/16/18 09:21 Past Medical History - Past Medical History Medical history: Reports: cancer, COPD Surgical history: Reports: no surgical history Psychiatric history: Reports: no psych history - Social History Smoking Status: Former smoker Smokeless Tobacco Status: No Alcohol use: Reports: none Drug use: Reports: none Physical Exam - General Limitations: altered mental status General appearance: lethargic, in distress Course Vital Signs Pulse Rate 107 11/16/18 08:00 Respiratory Rate 21 11/16/18 08:00 Blood Pressure 137/68 11/16/18 08:00 O2 Sat by Pulse Oximetry 98 11/16/18 08:00 Temperature 98.2 F 11/17/18 07:25 Pulse Rate 72 11/17/18 08:00 Respiratory Rate 24 11/17/18 09:05 Blood Pressure 134/82 11/17/18 08:00 O2 Sat by Pulse Oximetry 96 11/17/18 09:05 Oxygen Delivery Oxygen Delivery Ventilator Procedures - Central Line Placement Right IJ Central Line Inserted*: Yes Central Line Catheter Replacement*: No Central Line Insertion: emergent Consent Obtained: verbal consent Procedural Pause: verify patient name and date of , timeout performed per policy, maye and assess the site, assemble equipment and verify supplies, perform hand hygiene Patient Placed on Monitor/Pulse Ox: Yes During the Procedure: clinician is wearing sterile gloves, cap, mask,& gown during insertion, sterile field and sterile technique are maintained, patient's face is covered with drape or mask and wearing a cap, everyone in room is wearing a mask Central Line Prep: Chlorhexidine scrub Prep the Procedure Site: apply chloraprep to the skin using a back and forth scrubbing motion, apply chloraprep for 30 seconds (upper body), 1-2 min (femoral sites), allow prep to dry, drape the patient with a full body drape Local Anesthetic: lidocaine 1% Amount of anesthesia used (mL): 5 Ultrasound Used for Placement: Yes Central Line Lumen Inserted: triple Post Procedure: sutured in place, good blood return, all ports aspirated, flushed, capped, sterile dressing applied, guide wire removed and visualized, dressing is dated Post Procedure X-Ray: tip of catheter in good position, no pneumothorax seen Patient Tolerated Procedure: well, no complications Complications: none Name of Clinician Inserting Central Line: Layo Melton Clinician Assisting/Completing Checklist: Leo Weaver Date: 11/16/18 - Intubation Time out performed: Yes sedative: Etomidate Mg Given: 20 paralytic: Rocuronium Mg Given: 100 Laryngoscope: Roxie Assist Device Used: fiber optic device ET Tube Size: 7.5 ET Tube Uncuffed: No Tube Secured Depth (cm): 21 Tube Secured Location: lips Tube Placement Confirmation: visualized tube passing through cords, equal breath sounds bilaterally, no breath sounds over epigastrium, confirmation by capnometry Patient Tolerated Procedure: well Intubation Complications: none Medical Decision Making - Lab Data Result diagrams: 11/17/18 04:00 11/17/18 04:00 Lab Results 11/16/18 11/16/18 11/16/18 Range/Units 08:05 08:25 08:25 WBC 15.6 H (4.3-11.1) K/mcL RBC 4.39 (3.82-4.97) M/mcL Hgb 11.2 L (11.5-15.4) g/dL Hct 38.9 (35.3-44.9) % MCV 88.6 (83.0-100.0) fL MCH 25.5 L (28.0-33.3) pg MCHC 28.8 L (31.6-35.5) g/dL RDW 14.7 H (11.5-14.5) % Plt Count 298 (140-400) K/mcL MPV 11.1 (9.4-12.4) fL Immature Gran % 1.2 (0-4) % Seg Neutrophils % 84.3 % Lymphocytes % 4.5 % Monocytes % 9.8 % Eosinophils % 0.0 % Basophils % 0.2 % Neutrophils # 13.2 H (1.6-8.9) K/mcL Lymphocytes # 0.7 (0.6-4.6) K/mcL Monocytes # 1.5 H (0.0-1.3) K/mcL Eosinophils # 0.0 (0.0-0.6) K/mcL Basophils # 0.0 (0.0-0.2) K/mcL Platelet Estimate Normal (Normal) Polychromasia 1+ A (Not Present) Hypochromasia Present A (Not Present) PT 15.1 H (9.4-12.1) Seconds INR 1.3 APTT 24.9 L (26.0-36.0) Seconds Heparin Anti-Xa, Unfract (0.30-0.70) IU/mL ABG pH (7.32-7.45) pH Units ABG pCO2 (35-45) mmHg ABG pO2 (85-104) mmHg ABG HCO3 (21-27) mEq/L ABG Total CO2 (20-26) mEq/L ABG O2 Saturation (95-98) % ABG Base Excess (-2 to 3) mEq/L Respiration Rate O2 Delivery Device Blood Gas Modality Inspired O2 (1-15=lpm wl13-539=%) Tidal Volume cc PEEP cm H2O Sodium (136-145) mEq/L Potassium (3.5-5.1) mEq/L Chloride (98-107) mEq/L Carbon Dioxide (23-29) mEq/L BUN (8-23) mg/dL Creatinine (0.60-1.20) mg/dL Est GFR ( Amer) (> 60) Est GFR (Non-Af Amer) (> 60) BUN/Creatinine Ratio (6-26) Glucose (70-105) mg/dL Calculated Osmolality (280-300) Lactic Acid (0.5-2.2) mmol/L Calcium (8.6-10.3) mg/dL Total Bilirubin (0.3-1.0) mg/dL Direct Bilirubin (0.0-0.2) mg/dL Indirect Bilirubin (0.0-1.2) mg/dL AST (13-39) Units/L ALT (7-52) Units/L Alkaline Phosphatase (34-104) Units/L Ammonia (16-53) mcmol/L Troponin I (< 0.04) ng/mL B-Natriuretic Peptide 261 H (Less than 100) pg/mL Serum Total Protein (6.4-8.9) g/dL Albumin (3.5-5.7) g/dL Globulin (2.4-3.5) g/dL Albumin/Globulin Ratio (1.1-2.2) TSH (0.340-5.600) mcIU/mL Urine Color (Yellow) Urine Clarity (Clear) Urine pH (5.0-8.0) pH Units Ur Specific [place] (1.010-1.025) Urine Protein (Neg-Trace) mg/dL Urine Glucose (UA) (Normal) mg/dL Urine Ketones (Negative) mg/dL Urine Blood (Negative) Urine Nitrite (Negative) Urine Bilirubin (Negative) Urine Urobilinogen (Normal) mg/dL Ur Leukocyte Esterase (Negative) Urine Microscopic RBC (0-3) per hpf Urine Microscopic WBC (0-3) per hpf Ur Squamous Epith Cells (None-Few) per lpf Urine Bacteria (None-Few) per hpf Granular Casts (None Seen) per lpf Ur Culture Indicated? (NO) Urine Opiates Screen (Xohnoy=917) ng/mL Ur Buprenorphine Scrn (Cutoff=5) ng/mL Ur Barbiturates Screen (Qfgdge=295) ng/mL Ur Phencyclidine Scrn (Cutoff=25) ng/mL Ur Amphetamines Screen (Wnvxpp=3090) ng/mL U Benzodiazepines Scrn (Fqraxh=718) ng/mL Urine Cocaine Screen (Cutoff= 300) ng/mL U Marijuana (THC) Screen (Cutoff = 50) ng/mL Ur Drug Screen Interp Ethyl Alcohol (Less than 10) mg/dL Specimen Rejected Blood Type Antibody Screen 09/26/19 09/26/19 09/26/19 Range/Units 08:25 08:36 08:36 WBC (4.3-11.1) K/mcL RBC (3.82-4.97) M/mcL Hgb (11.5-15.4) g/dL Hct (35.3-44.9) % MCV (83.0-100.0) fL MCH (28.0-33.3) pg MCHC (31.6-35.5) g/dL RDW (11.5-14.5) % Plt Count (140-400) K/mcL MPV (9.4-12.4) fL Immature Gran % (0-4) % Seg Neutrophils % % Lymphocytes % % Monocytes % % Eosinophils % % Basophils % % Neutrophils # (1.6-8.9) K/mcL Lymphocytes # (0.6-4.6) K/mcL Monocytes # (0.0-1.3) K/mcL Eosinophils # (0.0-0.6) K/mcL Basophils # (0.0-0.2) K/mcL Platelet Estimate (Normal) Polychromasia (Not Present) Hypochromasia (Not Present) PT (9.4-12.1) Seconds INR APTT (26.0-36.0) Seconds Heparin Anti-Xa, Unfract (0.30-0.70) IU/mL ABG pH (7.32-7.45) pH Units ABG pCO2 (35-45) mmHg ABG pO2 (85-104) mmHg ABG HCO3 (21-27) mEq/L ABG Total CO2 (20-26) mEq/L ABG O2 Saturation (95-98) % ABG Base Excess (-2 to 3) mEq/L Respiration Rate O2 Delivery Device Blood Gas Modality Inspired O2 (1-15=lpm en53-933=%) Tidal Volume cc PEEP cm H2O Sodium (136-145) mEq/L Potassium (3.5-5.1) mEq/L Chloride (98-107) mEq/L Carbon Dioxide (23-29) mEq/L BUN (8-23) mg/dL Creatinine (0.60-1.20) mg/dL Est GFR ( Amer) (> 60) Est GFR (Non-Af Amer) (> 60) BUN/Creatinine Ratio (6-26) Glucose (70-105) mg/dL Calculated Osmolality (280-300) Lactic Acid (0.5-2.2) mmol/L Calcium (8.6-10.3) mg/dL Total Bilirubin (0.3-1.0) mg/dL Direct Bilirubin (0.0-0.2) mg/dL Indirect Bilirubin (0.0-1.2) mg/dL AST (13-39) Units/L ALT (7-52) Units/L Alkaline Phosphatase (34-104) Units/L Ammonia (16-53) mcmol/L Troponin I (< 0.04) ng/mL B-Natriuretic Peptide (Less than 100) pg/mL Serum Total Protein (6.4-8.9) g/dL Albumin (3.5-5.7) g/dL Globulin (2.4-3.5) g/dL Albumin/Globulin Ratio (1.1-2.2) TSH (0.340-5.600) mcIU/mL Urine Color Yellow (Yellow) Urine Clarity Clear (Clear) Urine pH 6.0 (5.0-8.0) pH Units Ur Specific [place] 1.021 (1.010-1.025) Urine Protein 100 H (Neg-Trace) mg/dL Urine Glucose (UA) Normal (Normal) mg/dL Urine Ketones Negative (Negative) mg/dL Urine Blood Trace H (Negative) Urine Nitrite Negative (Negative) Urine Bilirubin Negative (Negative) Urine Urobilinogen Normal (Normal) mg/dL Ur Leukocyte Esterase Negative (Negative) Urine Microscopic RBC 0-3 (0-3) per hpf Urine Microscopic WBC 0-3 (0-3) per hpf Ur Squamous Epith Cells Few (None-Few) per lpf Urine Bacteria Few (None-Few) per hpf Granular Casts Few H (None Seen) per lpf Ur Culture Indicated? YES A (NO) Urine Opiates Screen Negative (Kdygms=509) ng/mL Ur Buprenorphine Scrn Negative (Cutoff=5) ng/mL Ur Barbiturates Screen Negative (Ndveye=787) ng/mL Ur Phencyclidine Scrn Negative (Cutoff=25) ng/mL Ur Amphetamines Screen Negative (Glrmas=2650) ng/mL U Benzodiazepines Scrn Negative (Gdtgrp=646) ng/mL Urine Cocaine Screen Negative (Cutoff= 300) ng/mL U Marijuana (THC) Screen Negative (Cutoff = 50) ng/mL Ur Drug Screen Interp See Below Ethyl Alcohol (Less than 10) mg/dL Specimen Rejected Contaminated Blood Type Antibody Screen 11/16/18 11/16/18 11/16/18 Range/Units 09:15 09:18 09:18 WBC (4.3-11.1) K/mcL RBC (3.82-4.97) M/mcL Hgb (11.5-15.4) g/dL Hct (35.3-44.9) % MCV (83.0-100.0) fL MCH (28.0-33.3) pg MCHC (31.6-35.5) g/dL RDW (11.5-14.5) % Plt Count (140-400) K/mcL MPV (9.4-12.4) fL Immature Gran % (0-4) % Seg Neutrophils % % Lymphocytes % % Monocytes % % Eosinophils % % Basophils % % Neutrophils # (1.6-8.9) K/mcL Lymphocytes # (0.6-4.6) K/mcL Monocytes # (0.0-1.3) K/mcL Eosinophils # (0.0-0.6) K/mcL Basophils # (0.0-0.2) K/mcL Platelet Estimate (Normal) Polychromasia (Not Present) Hypochromasia (Not Present) PT (9.4-12.1) Seconds INR APTT (26.0-36.0) Seconds Heparin Anti-Xa, Unfract (0.30-0.70) IU/mL ABG pH (7.32-7.45) pH Units ABG pCO2 (35-45) mmHg ABG pO2 (85-104) mmHg ABG HCO3 (21-27) mEq/L ABG Total CO2 (20-26) mEq/L ABG O2 Saturation (95-98) % ABG Base Excess (-2 to 3) mEq/L Respiration Rate O2 Delivery Device Blood Gas Modality Inspired O2 (1-15=lpm df09-309=%) Tidal Volume cc PEEP cm H2O Sodium 143 (136-145) mEq/L Potassium 4.3 (3.5-5.1) mEq/L Chloride 99 (98-107) mEq/L Carbon Dioxide 28 (23-29) mEq/L BUN 23 (8-23) mg/dL Creatinine 0.73 (0.60-1.20) mg/dL Est GFR ( Amer) > 60 (> 60) Est GFR (Non-Af Amer) > 60 (> 60) BUN/Creatinine Ratio 32 H (6-26) Glucose 186 H (70-105) mg/dL Calculated Osmolality 305 H (280-300) Lactic Acid (0.5-2.2) mmol/L Calcium 9.1 (8.6-10.3) mg/dL Total Bilirubin 0.5 (0.3-1.0) mg/dL Direct Bilirubin 0.1 (0.0-0.2) mg/dL Indirect Bilirubin 0.4 (0.0-1.2) mg/dL AST 40 H (13-39) Units/L ALT 20 (7-52) Units/L Alkaline Phosphatase 114 H (34-104) Units/L Ammonia 120 H (16-53) mcmol/L Troponin I 0.08 H* (< 0.04) ng/mL B-Natriuretic Peptide (Less than 100) pg/mL Serum Total Protein 7.1 (6.4-8.9) g/dL Albumin 3.4 L (3.5-5.7) g/dL Globulin 3.7 H (2.4-3.5) g/dL Albumin/Globulin Ratio 0.9 L (1.1-2.2) TSH 1.955 (0.340-5.600) mcIU/mL Urine Color (Yellow) Urine Clarity (Clear) Urine pH (5.0-8.0) pH Units Ur Specific [place] (1.010-1.025) Urine Protein (Neg-Trace) mg/dL Urine Glucose (UA) (Normal) mg/dL Urine Ketones (Negative) mg/dL Urine Blood (Negative) Urine Nitrite (Negative) Urine Bilirubin (Negative) Urine Urobilinogen (Normal) mg/dL Ur Leukocyte Esterase (Negative) Urine Microscopic RBC (0-3) per hpf Urine Microscopic WBC (0-3) per hpf Ur Squamous Epith Cells (None-Few) per lpf Urine Bacteria (None-Few) per hpf Granular Casts (None Seen) per lpf Ur Culture Indicated? (NO) Urine Opiates Screen (Qpwpvj=099) ng/mL Ur Buprenorphine Scrn (Cutoff=5) ng/mL Ur Barbiturates Screen (Avogux=443) ng/mL Ur Phencyclidine Scrn (Cutoff=25) ng/mL Ur Amphetamines Screen (Tfdyxm=4193) ng/mL U Benzodiazepines Scrn ([place]=798) ng/mL Urine Cocaine Screen (Cutoff= 300) ng/mL U Marijuana (THC) Screen (Cutoff = 50) ng/mL Ur Drug Screen Interp Ethyl Alcohol < 10 (Less than 10) mg/dL Specimen Rejected Blood Type A POSITIVE Antibody Screen NEGATIVE 11/16/18 11/16/18 11/16/18 Range/Units 09:24 12:27 12:44 WBC (4.3-11.1) K/mcL RBC (3.82-4.97) M/mcL Hgb (11.5-15.4) g/dL Hct (35.3-44.9) % MCV (83.0-100.0) fL MCH (28.0-33.3) pg MCHC (31.6-35.5) g/dL RDW (11.5-14.5) % Plt Count (140-400) K/mcL MPV (9.4-12.4) fL Immature Gran % (0-4) % Seg Neutrophils % % Lymphocytes % % Monocytes % % Eosinophils % % Basophils % % Neutrophils # (1.6-8.9) K/mcL Lymphocytes # (0.6-4.6) K/mcL Monocytes # (0.0-1.3) K/mcL Eosinophils # (0.0-0.6) K/mcL Basophils # (0.0-0.2) K/mcL Platelet Estimate (Normal) Polychromasia (Not Present) Hypochromasia (Not Present) PT (9.4-12.1) Seconds INR APTT (26.0-36.0) Seconds Heparin Anti-Xa, Unfract 0.67 (0.30-0.70) IU/mL ABG pH 7.34 (7.32-7.45) pH Units ABG pCO2 59 H (35-45) mmHg ABG pO2 122 H (85-104) mmHg ABG HCO3 32 H (21-27) mEq/L ABG Total CO2 33 H (20-26) mEq/L ABG O2 Saturation 98 (95-98) % ABG Base Excess 4 H (-2 to 3) mEq/L Respiration Rate 12 O2 Delivery Device Adult Vent Blood Gas Modality ASSIST CONTROL Inspired O2 50.0 (1-15=lpm fx23-650=%) Tidal Volume 500 cc PEEP 5 cm H2O Sodium (136-145) mEq/L Potassium (3.5-5.1) mEq/L Chloride (98-107) mEq/L Carbon Dioxide (23-29) mEq/L BUN (8-23) mg/dL Creatinine (0.60-1.20) mg/dL Est GFR ( Amer) (> 60) Est GFR (Non-Af Amer) (> 60) BUN/Creatinine Ratio (6-26) Glucose (70-105) mg/dL Calculated Osmolality (280-300) Lactic Acid 1.3 (0.5-2.2) mmol/L Calcium (8.6-10.3) mg/dL Total Bilirubin (0.3-1.0) mg/dL Direct Bilirubin (0.0-0.2) mg/dL Indirect Bilirubin (0.0-1.2) mg/dL AST (13-39) Units/L ALT (7-52) Units/L Alkaline Phosphatase (34-104) Units/L Ammonia (16-53) mcmol/L Troponin I (< 0.04) ng/mL B-Natriuretic Peptide (Less than 100) pg/mL Serum Total Protein (6.4-8.9) g/dL Albumin (3.5-5.7) g/dL Globulin (2.4-3.5) g/dL Albumin/Globulin Ratio (1.1-2.2) TSH (0.340-5.600) mcIU/mL Urine Color (Yellow) Urine Clarity (Clear) Urine pH (5.0-8.0) pH Units Ur Specific [place] (1.010-1.025) Urine Protein (Neg-Trace) mg/dL Urine Glucose (UA) (Normal) mg/dL Urine Ketones (Negative) mg/dL Urine Blood (Negative) Urine Nitrite (Negative) Urine Bilirubin (Negative) Urine Urobilinogen (Normal) mg/dL Ur Leukocyte Esterase (Negative) Urine Microscopic RBC (0-3) per hpf Urine Microscopic WBC (0-3) per hpf Ur Squamous Epith Cells (None-Few) per lpf Urine Bacteria (None-Few) per hpf Granular Casts (None Seen) per lpf Ur Culture Indicated? (NO) Urine Opiates Screen (Bobpth=460) ng/mL Ur Buprenorphine Scrn (Cutoff=5) ng/mL Ur Barbiturates Screen (Glduqz=117) ng/mL Ur Phencyclidine Scrn (Cutoff=25) ng/mL Ur Amphetamines Screen (Nrvcsf=1082) ng/mL U Benzodiazepines Scrn (Bfvbal=350) ng/mL Urine Cocaine Screen (Cutoff= 300) ng/mL U Marijuana (THC) Screen (Cutoff = 50) ng/mL Ur Drug Screen Interp Ethyl Alcohol (Less than 10) mg/dL Specimen Rejected Blood Type Antibody Screen
[2018-11-17] MEDS ORDERED: Piperacillin/Tazobactam 3.375 GM VIAL ONE (12:38)
--- NOTE | 2018-11-17 13:41 | Internal Med Progress Note ---
Hospitalist Progress Note - Encounter Date of Encounter: 11/17/18 Time of Encounter: 13:38 - Subjective Interval History: Patient remains on ventilatory support. She had a BAL done this afternoon with copious amounts of secretions removed. There was some slight bleeding, her heparin drip was currently off. We will be restarting it this afternoon. Srinivas mueller has remained hemodynamically stable. Pt is unable to provide any review of systems as she is currently sedated and ventilated. - Exam Vitals: Temp Pulse Resp BP Pulse Ox 98.3 F 55 20 107/58 96 11/17/18 12:16 11/17/18 13:00 11/17/18 13:00 11/17/18 13:00 11/17/18 13:00 Exam: General: Sedated, ventilated Skin warm and dry Neck is supple Lungs show coarse breath sounds bilaterally Ht: regular rate and rhythm Abdomen soft nontender nondistended with normoactive bowel sounds Extremities show trace edema No gross focal neurologic deficits - Summary of Assessment and Plan Summary of Assessment and Plan: Acute loss of consciousness/syncope -I suspect this is due to acute pulmonary embolism -I will view EKG -Cannot rule out a seizure, will obtain EEG, question if patient has underlying HANDS PARTER metastases 11/17: EEG showed no seizure activity. CT scan head was negative. Continue to monitor. Acute on chronic combined hypoxemic and hypercarbic respiratory failure -Patient continues on ventilatory support -Multifactorial -She has prob post obx pneumonia which is certainly contributing to her hypoxemia as well as underlying COPD, and a new PE -pulm med consulted 11/17: Saw and discussed the case with today. Bronchoscopy performed as mentioned above Stage III lung cancer -oncology following Acute pulmonary embolism -on hep gtt -no acute right heart failure on exam, monitor Postobstructive bacterial pneumonia with sepsis -day #2Zosyn/Vancomycin -cx data ngtd COPD -no acute exac -aggressive BD therapy. monitor Elevated ammonia level -Unclear etiology, no documented history of liver disease -He is mentating an awake and alert, I will repeat 11/17: Repeat level is 46 Chronic back pain -home meds, monitor -?underlying mets DVT prophy -on hep gtt Full Code I discussed the case with Dr Mclaughlin, Pulm/Critical Care at bedside - Time Spent with Patient Total time spent is greater than 50% in coordination of care (as documented) at patient's floor/unit and/or counseling patient: Greater than 35 minutes Internal Medicine: Result - Labs CBC & Chem 7: 11/17/18 04:00 11/17/18 04:00 Labs: Short CBC 11/17/18 Range/Units 04:00 WBC 13.2 H (4.3-11.1) K/mcL Hgb 10.1 L (11.5-15.4) g/dL Hct 33.4 L (35.3-44.9) % Plt Count 285 (140-400) K/mcL Neutrophils # 12.7 H (1.6-8.9) K/mcL BMP 11/17/18 04:00 Sodium 140 Potassium 3.8 Chloride 106 Carbon Dioxide 29 BUN 28 H Creatinine 0.91 Glucose 168 H Calcium 8.8 Cardiac Enzymes 11/17/18 Range/Units 07:55 Troponin I 0.03 (< 0.04) ng/mL Liver Function 11/17/18 Range/Units 07:55 Total Bilirubin 0.4 (0.3-1.0) mg/dL Direct Bilirubin 0.1 (0.0-0.2) mg/dL AST 13 (13-39) Units/L ALT 11 (7-52) Units/L Alkaline Phosphatase 78 (34-104) Units/L Albumin 2.7 L (3.5-5.7) g/dL - ABG Interpretation ABG results: ABG ABG pH 7.46 pH Units (7.32-7.45) H 11/17/18 04:43 ABG pCO2 41 mmHg (35-45) 11/17/18 04:43 ABG pO2 115 mmHg (85-104) H 11/17/18 04:43 ABG O2 Saturation 99 % (95-98) H 11/17/18 04:43 PT/INR, D-dimer PT 15.1 Seconds (9.4-12.1) H 11/16/18 08:25 - Impressions Impressions Echocardiogram 11/16/18 18:14 Impressions: LVEF 65%. Left ventricular hypertrophy. Mild left ventricular diastolic dysfunction. Normal right ventricular structure and function. Mild tricuspid regurgitation. Mild pulmonary hypertension. Left Ventricular Wall Motion: Rest Echo Findings All wall segments showed normal motion. Findings: Study Quality * Technically adequate exam. ECG Findings * Normal sinus rhythm. Left Ventricle * LVEF 65%. * Left ventricular hypertrophy. * Mild left ventricular diastolic dysfunction. Right Ventricle * Normal right ventricular structure and function. Left Atrium * Normal left atrial size. Right Atrium * Normal right atrial size. Aortic Valve * No aortic regurgitation. * Aortic valve not well visualized. * No aortic stenosis. Mitral Valve * No mitral regurgitation. * No mitral stenosis. * Mitral valve not well visualized. * Mild mitral annular calcification Tricuspid Valve * Tricuspid valve not well visualized. * Mild tricuspid regurgitation. * Estimated RA pressure is 8 mmHg. * Estimated RVSP is 37 mmHg. * Mild pulmonary hypertension. Pulmonic Valve * Pulmonic valve is not well visualized. * No pulmonic stenosis. * No pulmonic regurgitation. Pulmonary Artery * Pulmonary artery not well visualized. Aorta * Normally sized aortic root. Pericardium * There is no pericardial effusion present. Interatrial Septum * No evidence of PFO by color Doppler. IVC * The IVC is not dilated. * < 50% respiratory change. KUB X-Ray 11/17/18 08:21 IMPRESSION: Enteric tube as above. D/ / Hayes Ang MD / Hayes Ang MD Interpreting Provider: Hayes Ang MD Chest X-Ray 11/17/18 09:37 IMPRESSION: Large right infrahilar mass with small right pleural effusion and mild interstitial edema. D/ / 11/17/2018 10:17:42 Ric Zapata MD / Sarita Spears Interpreting Provider: Ric Zapata MD Consult Discharge Plan - Plan Referrals: Jeff Dhillon MD [Primary Care Provider] -
[2018-11-17] MEDS: FentaNYL (PF) 1,000 MCG in 0.9 % Sodium Chloride 80 ML IVC SCH (16:20)
[2018-11-17 17:20] LABS: Source of Body Fluid RML
[2018-11-17 19:27] LABS: Appearance of Body Fluid Cloudy (Clear); Volume of Body Fluid 20 mL
[2018-11-18] MEDS: MethylPREDNISolone 40 MG/ML VIAL IVP SCH ×3 (00:20→16:17)
[2018-11-18] MEDS: Piperacillin/Tazobactam 3.375 GM in 0.9 % Sodium Chloride Mini Bag 100 ML IVPB SCH ×3 (02:38→18:29)
[2018-11-18] MEDS: Artificial Tears SOLN 15 ML BOTTLE BOTH EYES SCH ×5 (02:44→20:45)
[2018-11-18 04:35] LABS: Basophils % 0.1 %; Hematocrit 31.5 % (35.3-44.9); Hemoglobin 9.5 g/dL (11.5-15.4); Lymphocytes # 0.4 K/mcL (0.6-4.6); Lymphocytes % 2.8 %; Mean Corpuscular HGB Conc 30.2 g/dL (31.6-35.5); Mean Corpuscular Hemoglobin 25.3 pg (28.0-33.3); Mean Platelet Volume 11.2 fL (9.4-12.4); Monocytes # 0.6 K/mcL (0.0-1.3); Monocytes % 4.2 %; Neutrophils # 13.1 K/mcL (1.6-8.9); Platelet Count 276 K/mcL (140-400); Red Blood Count 3.75 M/mcL (3.82-4.97); Red Cell Distribution Width 15.5 % (11.5-14.5); Segmented Neutrophils % 91.9 %; White Blood Count 14.3 K/mcL (4.3-11.1)
[2018-11-18 04:49] LABS: BUN/Creatinine Ratio 39 (6-26); Blood Urea Nitrogen 40 mg/dL (8-23); Calcium 8.9 mg/dL (8.6-10.3); Carbon Dioxide 28 mEq/L (23-29); Chloride 107 mEq/L (98-107); Glucose 181 mg/dL (70-105); Osmolality,Calculated 308 (280-300); Potassium 3.5 mEq/L (3.5-5.1); Sodium 142 mEq/L (136-145); eGFR For African Americans > 60 (> 60); eGFR For Non-African Americans 53 (> 60)
[2018-11-18 04:54] LABS: ABG Base Excess 3 mEq/L (-2 to 3); ABG HCO3 28 mEq/L (21-27); ABG Oxygen Saturation 96 % (95-98); ABG PCO2 45 mmHg (35-45); ABG PO2 86 mmHg (85-104); ABG TCO2 29 mEq/L (20-26); Blood Gas Modality ASSIST CONTROL; Blood Gas PEEP 5 cm H2O; Blood Gas VT 380 cc
[2018-11-18] MEDS: Insulin LISPRO 300 UNITS/3 ML VIAL SQ SCH ×3 (06:12→18:28)
--- NOTE | 2018-11-18 07:08 | Pulmonology Progress Note ---
<Travis Manriquez L - Last Filed: 11/18/18 12:03> Date of Encounter: 11/18/18 Time of Encounter: 07:05 Assessment and Plan (1) Respiratory failure requiring intubation Current Visit: Yes Status: Acute Acute Resp failure - Remains intubated and seated - Failed Spontaneous breathing trials yesterday and this morning - Bronchosocpy with BAL performed yesterday, some bleeding during procedure, resolved - Sputum and blood cultures incubating - lasix 40mg once. Will check response (2) Acute pulmonary embolism Current Visit: Yes Status: Acute Pulmonary embolism - small, non-obstructing PE noted on CTA - Heparin drip help for a couple hours post bronchoscopy, no resumed - Will need chronic anticoagulation Qualifiers: Pulmonary embolism type: other Acute cor pulmonale presence: without acute cor pulmonale Qualified Code(s): I26.99 - Other pulmonary embolism without acute cor pulmonale (3) Altered mental status Current Visit: Yes Status: Acute Altered mental status - EEG on 11/16/18, Prominent theta activity - Remains sedated Qualifiers: Altered mental status type: unspecified Qualified Code(s): R41.82 - Altered mental status, unspecified (4) Lung cancer Current Visit: Yes Status: Acute Lung Cancer - Adenocarcinoma R lung - Diagnosed with Biopsy on 11/07/18 - Outpatient work-up with Oncology/pulmonology in progress Qualifiers: Laterality: right Lung location: lower lobe of lung Qualified Code(s): C34.31 - Malignant neoplasm of lower lobe, right bronchus or lung (5) Postobstructive pneumonia Current Visit: Yes Status: Acute Post-obstructive PNA - Persistent leukocytosis - Lactic acid was normal - Blood cultures pending, sputum cultures pending, BAL cultures pending - Continue Vanc, zosyn (6) COPD (chronic obstructive pulmonary disease) Current Visit: Yes Status: Acute Qualifiers: COPD type: COPD with acute lower respiratory infection Qualified Code(s): J44.0 - Chronic obstructive pulmonary disease with acute lower respiratory infection (7) Serum ammonia increased Current Visit: Yes Status: Resolved Ammonia level resolved, repeat was 46. Unknown etiology of her elevated ammonia on presentation (8) Chronic back pain Current Visit: Yes Status: Acute Hx of chronic back pain Qualifiers: Back pain location: back pain in unspecified location Back pain laterality: unspecified Qualified Code(s): M54.9 - Dorsalgia, unspecified; G89.29 - Other chronic pain (9) DVT prophylaxis Current Visit: Yes Status: Acute Heparin drip Subjective Principal diagnosis: Respiratory Failure Interval history: Patient seen and examined. Afebrile, no overnight events. On spontaneous breathing trial, doing well this morning. Bronchoscopy was performed yesterday, patient had some bleeding. Heparin drip was held for a few hours, it has been resumed and there are no obvious signs of bleeding overnight. Cultures were obtained during bronchoscopy and are incubating. Objective PUL Vital signs: Last Vital Signs Temp 98.6 F 11/18/18 04:00 Pulse 67 11/18/18 06:00 Resp 18 11/18/18 06:38 BP 123/62 11/18/18 06:00 Pulse Ox 97 11/18/18 06:38 Gen: Vitals noted. Intubated and sedated Eyes: anicteric sclerae, moist conjunctivae.Pupils 4-5mm, round, equal and reactive to light HENT: Atraumatic, normocephalic; oropharynx clear with moist mucous membranes and no mucosal ulcerations. Neck: Trachea midline; supple, no thyromegaly or lymphadenopathy Cardiac: RRR, no murmurs, rubs or gallops, S1/S2 Pulmonary: Coarse mechanical breath sounds with crackles BL. Trevino/blood tinged secretions Abdomen: soft, nontender, no rigidity or guarding. No masses or hepatosplenomegaly MSK: ROM intact, no joint swelling noted Extremities: no BLE edema, nontender calf, no cyanosis or clubbing Skin: Normal temperature, turgor and texture; no rash, ulcers or subcutaneous nodules Neuro: moves all extremities, no focal deficits. Vega 2 on sedation. Follows commands. Awake and alert Psych: unable to assess Analgesia: Fentanyl Sedation: Versed, propofol SBT: None Glycemic control: none Bowl regimen: None Activity: none Fluids: None Electrolytes: replete as necessary Nutrition: Tube feeds, will hold for potential extubation GI ppx: PPI Lines: R IJ, 3xPIV Tubes: ETT, Win Consults: pulm Code: Full Dispo: ICU Ventilator Settings Ventilator Settings: Ventilator Settings, Last 8 Hours Ventilator Tidal Volume 380 Setting Ventilator Tidal Volume 380 Setting Ventilator Tidal Volume 380 Setting Ventilator Tidal Volume 380 Setting Ventilator Tidal Volume 380 Setting Ventilator Tidal Volume 380 Setting Ventilator Tidal Volume 380 Setting Ventilator Tidal Volume 380 Setting Ventilator Tidal Volume 380 Setting Ventilator Tidal Volume 380 Setting Ventilator Tidal Volume 380 Setting Ventilator Respiratory Rate 20 Setting Ventilator Respiratory Rate 20 Setting Ventilator Respiratory Rate 20 Setting Ventilator Respiratory Rate 20 Setting Ventilator Respiratory Rate 20 Setting Ventilator Respiratory Rate 20 Setting Ventilator Respiratory Rate 20 Setting Ventilator Respiratory Rate 20 Setting Ventilator Respiratory Rate 20 Setting Ventilator Respiratory Rate 20 Setting Ventilator Respiratory Rate 20 Setting Actual Respiratory Rate 19 Actual Respiratory Rate 20 Actual Respiratory Rate 20 Actual Respiratory Rate 20 Actual Respiratory Rate 20 Actual Respiratory Rate 22 Actual Respiratory Rate 20 Actual Respiratory Rate 22 Actual Respiratory Rate 20 Actual Respiratory Rate 20 Actual Respiratory Rate 20 Positive End Expiratory 5 Pressure Positive End Expiratory 5 Pressure Positive End Expiratory 5 Pressure Positive End Expiratory 5 Pressure Positive End Expiratory 5 Pressure Positive End Expiratory 5 Pressure Positive End Expiratory 5 Pressure Positive End Expiratory 5 Pressure Positive End Expiratory 5 Pressure Positive End Expiratory 5 Pressure Positive End Expiratory 5 Pressure Positive End Expiratory 5 Pressure Peak Inspiratory Airway 15 Pressure Peak Inspiratory Airway 28 Pressure Peak Inspiratory Airway 33 Pressure Peak Inspiratory Airway 25 Pressure Peak Inspiratory Airway 26 Pressure Peak Inspiratory Airway 21 Pressure Peak Inspiratory Airway 26 Pressure Peak Inspiratory Airway 22 Pressure Peak Inspiratory Airway 31 Pressure Peak Inspiratory Airway 31 Pressure Peak Inspiratory Airway 32 Pressure Results - Laboratory Findings CBC and BMP: 11/18/18 04:20 11/18/18 04:20 ABG ABG pH 7.40 pH Units (7.32-7.45) 11/18/18 04:49 ABG pCO2 45 mmHg (35-45) 11/18/18 04:49 ABG pO2 86 mmHg (85-104) 11/18/18 04:49 ABG O2 Saturation 96 % (95-98) 11/18/18 04:49 PT/INR, D-dimer PT 15.1 Seconds (9.4-12.1) H 11/16/18 08:25 Abnormal lab findings: Abnormal lab results WBC 14.3 K/mcL (4.3-11.1) H 11/18/18 04:20 RBC 3.75 M/mcL (3.82-4.97) L 11/18/18 04:20 Hgb 9.5 g/dL (11.5-15.4) L 11/18/18 04:20 Hct 31.5 % (35.3-44.9) L 11/18/18 04:20 MCH 25.3 pg (28.0-33.3) L 11/18/18 04:20 MCHC 30.2 g/dL (31.6-35.5) L 11/18/18 04:20 RDW 15.5 % (11.5-14.5) H 11/18/18 04:20 Band Neutrophils % 16.0 % (0-4) H 11/17/18 04:00 Neutrophils # 13.1 K/mcL (1.6-8.9) H 11/18/18 04:20 Lymphocytes # 0.4 K/mcL (0.6-4.6) L 11/18/18 04:20 Monocytes # 1.5 K/mcL (0.0-1.3) H 11/16/18 08:25 Smudge Cells Present (Not Present) A 11/17/18 04:00 Toxic Vacuolation Present (Not Present) A 11/17/18 04:00 Polychromasia 1+ (Not Present) A 11/16/18 08:25 Hypochromasia Present (Not Present) A 11/16/18 08:25 PT 15.1 Seconds (9.4-12.1) H 11/16/18 08:25 APTT 24.9 Seconds (26.0-36.0) L 11/16/18 08:25 ABG pH 7.46 pH Units (7.32-7.45) H 11/17/18 04:43 ABG pCO2 50 mmHg (35-45) H 11/16/18 18:03 ABG pO2 115 mmHg (85-104) H 11/17/18 04:43 ABG HCO3 28 mEq/L (21-27) H 11/18/18 04:49 ABG Total CO2 29 mEq/L (20-26) H 11/18/18 04:49 ABG O2 Saturation 99 % (95-98) H 11/17/18 04:43 ABG Base Excess 5 mEq/L (-2 to 3) H 11/17/18 04:43 BUN 40 mg/dL (8-23) H 11/18/18 04:20 Est GFR (Non-Af Amer) 53 (> 60) L 11/18/18 04:20 BUN/Creatinine Ratio 39 (6-26) H 11/18/18 04:20 Glucose 181 mg/dL (70-105) H 11/18/18 04:20 POC Glucose 148 mg/dL (70-99) H 11/17/18 23:22 Hemoglobin A1c 6.5 % (-5.6) H 11/16/18 17:04 Calculated Osmolality 308 (280-300) H 11/18/18 04:20 AST 40 Units/L (13-39) H 11/16/18 09:15 Alkaline Phosphatase 114 Units/L (34-104) H 11/16/18 09:15 Ammonia 120 mcmol/L (16-53) H 11/16/18 09:18 Troponin I 0.08 ng/mL (< 0.04) H* 11/16/18 09:15 B-Natriuretic Peptide 261 pg/mL (Less than 100) H 11/16/18 08:05 Serum Total Protein 5.6 g/dL (6.4-8.9) L 11/17/18 07:55 Albumin 2.7 g/dL (3.5-5.7) L 11/17/18 07:55 Globulin 3.7 g/dL (2.4-3.5) H 11/16/18 09:15 Albumin/Globulin Ratio 0.9 (1.1-2.2) L 11/17/18 07:55 Urine Protein 100 mg/dL (Neg-Trace) H 11/16/18 08:36 Urine Blood Trace (Negative) H 11/16/18 08:36 Granular Casts Few per lpf (None Seen) H 11/16/18 08:36 Ur Culture Indicated? YES (NO) A 11/16/18 08:36 Fluid Appearance Cloudy (Clear) A 11/17/18 13:51 - Microbiology Findings Microbiology Findings: Microbiology, Last 48 Hours 11/17/18 13:51 Respiratory Culture - Preliminary Right Middle Lobe Lung 11/17/18 13:51 Fungal Culture - Preliminary Right Middle Lobe Lung Culture is incubating. 11/16/18 20:00 Sputum Culture - Preliminary Sputum 11/16/18 08:36 Urine Culture - Final Urine,Catheterized (Straight) No significant growth. 11/16/18 08:25 Blood Culture - Preliminary Peripheral Venipuncture Culture is incubating and being continuously inocencio tored for growth. Final report to follow. 11/16/18 10:34 Blood Culture - Preliminary Peripheral Venipuncture Culture is incubating and being continuously monitored for growth. Final report to follow. - Clinical Findings Intake & Output: Intake & Output 11/17/18 11/17/18 11/18/18 15:59 23:59 07:59 Intake Total 831 / 2985 462 / 2985 904 / 904 Output Total 300 / 800 200 / 800 300 / 300 Balance 531 / 2185 262 / 2185 604 / 604 Consult Discharge Plan - Plan Referrals: Jeff Dhillon MD [Primary Care Provider] - <Gato Mclaughlin - Last Filed: 11/18/18 21:11> Date of Encounter: 11/18/18 Objective PUL Vital signs: Last Vital Signs Temp 97.4 F L 11/18/18 19:39 Pulse 79 11/18/18 20:00 Resp 16 11/18/18 20:15 BP 149/70 11/18/18 20:00 Pulse Ox 94 11/18/18 20:15 Ventilator Settings Ventilator Settings: Ventilator Settings, Last 8 Hours Ventilator Tidal Volume 380 Setting Ventilator Tidal Volume 380 Setting Ventilator Tidal Volume 380 Setting Ventilator Respiratory Rate 20 Setting Ventilator Respiratory Rate 20 Setting Ventilator Respiratory Rate 20 Setting Actual Respiratory Rate 18 Actual Respiratory Rate 20 Positive End Expiratory 5 Pressure Positive End Expiratory 5 Pressure Positive End Expiratory 5 Pressure Positive End Expiratory 5 Pressure Positive End Expiratory 5 Pressure Positive End Expiratory 5 Pressure Peak Inspiratory Airway 16 Pressure Peak Inspiratory Airway 15 Pressure Peak Inspiratory Airway 16 Pressure Peak Inspiratory Airway 31 Pressure Peak Inspiratory Airway 31 Pressure Peak Inspiratory Airway 31 Pressure Results - Laboratory Findings CBC and BMP: 11/18/18 04:20 11/18/18 04:20 ABG ABG pH 7.40 pH Units (7.32-7.45) 11/18/18 04:49 ABG pCO2 45 mmHg (35-45) 11/18/18 04:49 ABG pO2 86 mmHg (85-104) 11/18/18 04:49 ABG O2 Saturation 96 % (95-98) 11/18/18 04:49 PT/INR, D-dimer PT 15.1 Seconds (9.4-12.1) H 11/16/18 08:25 Abnormal lab findings: Abnormal lab results WBC 14.3 K/mcL (4.3-11.1) H 11/18/18 04:20 RBC 3.75 M/mcL (3.82-4.97) L 11/18/18 04:20 Hgb 9.5 g/dL (11.5-15.4) L 11/18/18 04:20 Hct 31.5 % (35.3-44.9) L 11/18/18 04:20 MCH 25.3 pg (28.0-33.3) L 11/18/18 04:20 MCHC 30.2 g/dL (31.6-35.5) L 11/18/18 04:20 RDW 15.5 % (11.5-14.5) H 11/18/18 04:20 Band Neutrophils % 16.0 % (0-4) H 11/17/18 04:00 Neutrophils # 13.1 K/mcL (1.6-8.9) H 11/18/18 04:20 Lymphocytes # 0.4 K/mcL (0.6-4.6) L 11/18/18 04:20 Monocytes # 1.5 K/mcL (0.0-1.3) H 11/16/18 08:25 Smudge Cells Present (Not Present) A 11/17/18 04:00 Toxic Vacuolation Present (Not Present) A 11/17/18 04:00 Polychromasia 1+ (Not Present) A 11/16/18 08:25 Hypochromasia Present (Not Present) A 11/16/18 08:25 PT 15.1 Seconds (9.4-12.1) H 11/16/18 08:25 APTT 24.9 Seconds (26.0-36.0) L 11/16/18 08:25 ABG pH 7.46 pH Units (7.32-7.45) H 11/17/18 04:43 ABG pCO2 50 mmHg (35-45) H 11/16/18 18:03 ABG pO2 115 mmHg (85-104) H 11/17/18 04:43 ABG HCO3 28 mEq/L (21-27) H 11/18/18 04:49 ABG Total CO2 29 mEq/L (20-26) H 11/18/18 04:49 ABG O2 Saturation 99 % (95-98) H 11/17/18 04:43 ABG Base Excess 5 mEq/L (-2 to 3) H 11/17/18 04:43 BUN 40 mg/dL (8-23) H 11/18/18 04:20 Est GFR (Non-Af Amer) 53 (> 60) L 11/18/18 04:20 BUN/Creatinine Ratio 39 (6-26) H 11/18/18 04:20 Glucose 181 mg/dL (70-105) H 11/18/18 04:20 POC Glucose 148 mg/dL (70-99) H 11/17/18 23:22 Hemoglobin A1c 6.5 % (-5.6) H 11/16/18 17:04 Calculated Osmolality 308 (280-300) H 11/18/18 04:20 AST 40 Units/L (13-39) H 11/16/18 09:15 Alkaline Phosphatase 114 Units/L (34-104) H 11/16/18 09:15 Ammonia 120 mcmol/L (16-53) H 11/16/18 09:18 Troponin I 0.08 ng/mL (< 0.04) H* 11/16/18 09:15 B-Natriuretic Peptide 261 pg/mL (Less than 100) H 11/16/18 08:05 Serum Total Protein 5.6 g/dL (6.4-8.9) L 11/17/18 07:55 Albumin 2.7 g/dL (3.5-5.7) L 11/17/18 07:55 Globulin 3.7 g/dL (2.4-3.5) H 11/16/18 09:15 Albumin/Globulin Ratio 0.9 (1.1-2.2) L 11/17/18 07:55 Urine Protein 100 mg/dL (Neg-Trace) H 11/16/18 08:36 Urine Blood Trace (Negative) H 11/16/18 08:36 Granular Casts Few per lpf (None Seen) H 11/16/18 08:36 Ur Culture Indicated? YES (NO) A 11/16/18 08:36 Fluid Appearance Cloudy (Clear) A 11/17/18 13:51 Vancomycin Trough 26 mcg/mL (5-10) H 11/18/18 11:00 - Microbiology Findings Microbiology Findings: Microbiology, Last 48 Hours 11/16/18 20:00 Sputum Culture - Preliminary Sputum 11/17/18 13:51 Respiratory Culture - Preliminary Right Middle Lobe Lung 11/17/18 13:51 Fungal Culture - Preliminary Right Middle Lobe Lung Culture is incubating. 11/16/18 08:36 Urine Culture - Final Urine,Catheterized (Straight) No significant growth. - Clinical Findings Intake & Output: Intake & Output 11/18/18 11/18/18 11/18/18 07:59 15:59 23:59 Intake Total 904 / 1619.3 567.9 / 1619.3 147.4 / 1619.3 Output Total 425 / 1800 1075 / 1800 300 / 1800 Balance 479 / -180.7 -507.1 / -180.7 -152.6 / -180.7 - Attending Attestation - Attending Attestation I saw and evaluated this patient and my medical decision-making was reviewed with the Resident Physician. I agree with the documented findings, disposition a nd treatment plan as described except to the extent set forth below. We independently had [id number] contact with the patient I spent 35 minutes of Critical Care time with this patient. It involved decision making of high complexity to assess, manipulate, and support vital organ system failure and/or to prevent further life threatening deterioration of the patient's condition. The time involved in the performance of separately reportable procedures was not counted toward critical care time. Patient seen and examined at bedside Labs, radiology, chart personally reviewed. Management was reviewed during multidisciplinary critical care rounds. WEB CONTENT MANAGER: Patient is intubated , mechanically ventilated patient intubated and sedated. No focal neurological deficit no clinical seizure activity concern for brain metastasis because of the recently diagnosed lung cancer CT scan did not show any evidence of metastasis or edema. EEG did not show any evidence of focal epileptiform activities. 11/18 patient does not have any evidence of encephalopathy no focal neurological deficit Pulm: Patient has acceptable oxygenation and ventilation adjusted to low tidal volume strategy at this the minute ventilation. Patient may have a component of hydrostatic pulmonary edema postobstructive pneumonia enlarging right-sided lung mass complicated by small right middle lobe segmental branches pulmonary embolism patient is hemodynamically stable patient has significant bronchospasm to give every 2 bronchodilators 11/18 patient did not pass the spontaneous breathing trial will reattempt with the pressure support ventilation if she passes will need possible BIPAP support if she goes on respiratory distress.Did bronchoscopy with BAL yesterday. Patient is heparin for pulmonary embolism Cards: Patient has pulmonary embolism patient was hemodynamically stable now and being intubated and mechanical ventilated patient is having some soft pressures. We will get the echocardiogram to check for RV function and LV function. 11/18 patient is hemodynamically stable will do gentle diuresis as tolerated. FEN-GI: Advance diet as tolerated after extubation only clear liquids for today Renal: Labs and output were reviewed. ID: To cover with broad-spectrum antibiotics for postobstructive pneumonia to continue with Vanco and Zosyn. will descalate antibiotics Heme/Onc: Labs reviewed, patient has recently diagnosed adenocarcinoma of lung patient is following up with oncology. There is no organisms growing in BAL patient to get chemotherapy as scheduled. Endo: Glucose Monitored Integ/MSK: Skin Care per routine ICU Nursing Protocol to prevent ulcers. Lines: All lines examined without evidence of infection : Dispo: critically ill high risk for reintubation CODE: Full code
[2018-11-18] MEDS: Budesonide/Formoterol 160/4.5 1 PUFF INH IH SCH ×2 (07:32→20:11)
[2018-11-18] MEDS ORDERED: Aminoglycoside Consult 1 EACH MC ONE (07:35)
[2018-11-18] MEDS: Norepinephrine 4 MG in 0.9 % Sodium Chloride 250 ML IVC SCH (08:40)
[2018-11-18] MEDS: Dexmedetomidine HCl 400 MCG/100 ML MLS IVC SCH ×3 (08:40→21:32)
[2018-11-18] MEDS: Pantoprazole 40 MG VIAL IVP SCH (08:40)
[2018-11-18] MEDS: Chlorhexidine Rinse 15 ML MOUTHWASH MM SCH (08:40)
[2018-11-18] MEDS: 0.9 % Sodium Chloride 1,000 ML IVC SCH (08:44)
--- NOTE | 2018-11-18 09:06 | Internal Med Progress Note ---
Hospitalist Progress Note - Encounter Date of Encounter: 11/18/18 Time of Encounter: 09:01 - Subjective Interval History: Ms. 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 She fell down on the grass. She was unresponsive but was breathing the whole time with gasping per her . states her eyes were rolled back but she did not have any seizure-like activity. EMS was summoned and she was brought to the emergency room, with Ambu bag being performed. Patient was quickly intubated on arrival to the emergency room. She was placed on propofol initially but had a drop in her blood pressure, and was transiently switched to Precedex. She is now back on propofol. Workup included a bedside echocardiogram which showed near-complete emptying of left ventricle with what appeared to be normal systolic function. IVC was measured near the liver a 1.2 cm. Aorta appeared normal. She was given IV fluids and blood pressure improved. She had a CT of her head noncontrast which showed no acute process. C-spine CT was negative. She had a stat CT of her thorax which showed a very small nonobstructing pulmonary embolism in the medial segment of the right middle lobe. She also has what appears to be increasing size of a malignant mass in the medial base of the right middle lobe and right lower lobe, as well as several by basilar pulmonary metastases present. She had complete occlusion of the bronchus intermedius by adjacent lymphadenopathy, concern for developing postobstructive pneumonia. There is some mild pulmonary vascular congestion, and moderate emphysematous changes. Incidentally noted 3.5 cm infrarenal AAA. 11/18: Patient is currently day #3 of ventilatory support. We attempted a CPAP trial today although after about 2 hours she became hypertensive and tachypneic, and is now back on ventilatory support. Patient had a BAL performed yesterday which showed a lung mass 5 cm distal to the right mainstem bronchus, with some bleeding. Some fluid was aspirated, sent for culture. There was lots of mucus. Thus far blood cultures remain negative. BAL aspirate shows no growth. She remains on Zosyn and vancomycin day #3. Patient is currently unable to provide any review of systems as she is ventilated, and sedated - Exam Vitals: Temp Pulse Resp BP Pulse Ox 98.5 F 101 31 190/91 95 11/18/18 07:00 11/18/18 08:00 11/18/18 08:00 11/18/18 08:00 11/18/18 08:00 Exam: General: Sedated, ventilated, ill appearing Skin warm and dry Neck is supple Lungs show coarse breath sounds bilaterally Ht: regular rate and rhythm Abdomen soft nontender nondistended with normoactive bowel sounds Extremities show trace edema No gross focal neurologic deficits - Summary of Assessment and Plan Summary of Assessment and Plan: Acute loss of consciousness/syncope -I suspect this is due to acute pulmonary embolism -I will view EKG -Cannot rule out a seizure, will obtain EEG, question if patient has underlying COFFEE TASTER metastases 11/17: EEG showed no seizure activity. CT scan head was negative. Continue to monitor. Acute on chronic combined hypoxemic and hypercarbic respiratory failure -Patient continues on ventilatory support -Multifactorial -She has prob post obx pneumonia which is certainly contributing to her hypoxemia as well as underlying COPD, and a new PE -pulm med consulted 11/17: Saw and discussed the case with today. Bronchoscopy performed as mentioned above 11/18: All Cx NGTD Stage III lung cancer -oncology following Acute pulmonary embolism -on hep gtt -no acute right heart failure on exam, monitor 11/18: Soon transition to SubQ Lovenox Postobstructive bacterial pneumonia with sepsis -day #3 Zosyn/Vancomycin -cx data ngtd including blood cx and BAL COPD -aggressive BD therapy. pulm toilet, IV Solumedrol -monitor Elevated ammonia level -Unclear etiology, no documented history of liver disease -He is mentating an awake and alert, I will repeat 11/17: Repeat level is 46 Chronic back pain -home meds, monitor -?underlying mets DVT prophy -on hep gtt Full Code I discussed the case with Dr Mclaughlin, Pulm/Critical Care at bedside - Time Spent with Patient Total time spent is greater than 50% in coordination of care (as documented) at patient's floor/unit and/or counseling patient: Greater than 35 minutes Internal Medicine: Result - Labs CBC & Chem 7: 11/18/18 04:20 11/18/18 04:20 Labs: Short CBC 11/18/18 Range/Units 04:20 WBC 14.3 H (4.3-11.1) K/mcL Hgb 9.5 L (11.5-15.4) g/dL Hct 31.5 L (35.3-44.9) % Plt Count 276 (140-400) K/mcL Neutrophils # 13.1 H (1.6-8.9) K/mcL BMP 11/18/18 04:20 Sodium 142 Potassium 3.5 Chloride 107 Carbon Dioxide 28 BUN 40 H Creatinine 1.03 Glucose 181 H Calcium 8.9 - ABG Interpretation ABG results: ABG ABG pH 7.40 pH Units (7.32-7.45) 11/18/18 04:49 ABG pCO2 45 mmHg (35-45) 11/18/18 04:49 ABG pO2 86 mmHg (85-104) 11/18/18 04:49 ABG O2 Saturation 96 % (95-98) 11/18/18 04:49 PT/INR, D-dimer PT 15.1 Seconds (9.4-12.1) H 11/16/18 08:25 - Impressions Impressions Chest X-Ray 11/16/18 08:29 IMPRESSION: Endotracheal tube tip is 2.8 cm from the gauri. Increasing bilateral airspace interstitial opacities either edema or multifocal pneumonia. D/ / Lynn Menjivar MD / Lynn Menjivar MD Interpreting Provider: Lynn Menjivar MD Head CT 11/16/18 09:06 IMPRESSION: No acute intracranial abnormality. D/ / King Gray MD / King Gray MD Interpreting Provider: King Gray MD Cervical Spine CT 11/16/18 09:07 IMPRESSION: 1.No acute abnormality of the cervical spine. D/ / Сергей Machado MD / Сергей Machado MD Interpreting Provider: Сергей Machado MD Chest CTA 11/16/18 09:42 IMPRESSION: Very small nonobstructing pulmonary embolism to the medial segment of the right middle lobe. At least mild increase in the size of the very large malignant mass in the medial base of the right middle lobe and right lower lobe. Several bibasilar pulmonary metastases present. Complete occlusion of the bronchus intermedius by adjacent adenopathy now present with developing postobstructive pneumonia or atelectasis. Slight pulmonary vascular congestion. Moderate emphysematous changes.. Very small right pleural effusion decreased in size since the prior study. Small infrarenal abdominal aortic aneurysm. 20 mm right thyroid nodule. RECOMMENDATIONS: For management of fusiform AAA: 3.5-3.9 cm AAA, recommend follow-up every 2 years. 4.0-4.4 cm AAA, recommend follow-up every 12 months and recommend vascular consultation. 4.5-5.4 cm AAA, recommend follow-up every 6 months and recommend vascular consultation. >5.5 cm AAA, recommend referral to vascular specialist. Note: For AAA enlargement of >0.5 cm in 6 months or >1 cm in 1 year, recommend vascular consultation. References: J Am Angy Radiol 2013; 10(10):789-794; J Vasc Surg. 2018; 67:2-77 Thyroid ultrasound would usually be recommended for a nodule of this size; however, the patient's more pressing medical concerns make follow-up significantly less important. D/ / Riky Gonzalez MD / Riky Gonzalez MD Interpreting Provider: Riky Gonzalez MD Chest X-Ray 11/16/18 10:22 IMPRESSION: Right central venous catheter tip projects over the distal SVC. No pneumothorax. 4 mm nodule opacity left upper lobe not well seen on prior exams and can be followed on subsequent CTs. Otherwise stable chest. D/ / Lynn Menjivar MD / Lynn Menjivar MD Interpreting Provider: Lynn Menjivar MD Echocardiogram 11/16/18 18:14 Impressions: LVEF 65%. Left ventricular hypertrophy. Mild left ventricular diastolic dysfunction. Normal right ventricular structure and function. Mild tricuspid regurgitation. Mild pulmonary hypertension. Left Ventricular Wall Motion: Rest Echo Findings All wall segments showed normal motion. Findings: Study Quality * Technically adequate exam. ECG Findings * Normal sinus rhythm. Left Ventricle * LVEF 65%. * Left ventricular hypertrophy. * Mild left ventricular diastolic dysfunction. Right Ventricle * Normal right ventricular structure and function. Left Atrium * Normal left atrial size. Right Atrium * Normal right atrial size. Aortic Valve * No aortic regurgitation. * Aortic valve not well visualized. * No aortic stenosis. Mitral Valve * No mitral regurgitation. * No mitral stenosis. * Mitral valve not well visualized. * Mild mitral annular calcification Tricuspid Valve * Tricuspid valve not well visualized. * Mild tricuspid regurgitation. * Estimated RA pressure is 8 mmHg. * Estimated RVSP is 37 mmHg. * Mild pulmonary hypertension. Pulmonic Valve * Pulmonic valve is not well visualized. * No pulmonic stenosis. * No pulmonic regurgitation. Pulmonary Artery * Pulmonary artery not well visualized. Aorta * Normally sized aortic root. Pericardium * There is no pericardial effusion present. Interatrial Septum * No evidence of PFO by color Doppler. IVC * The IVC is not dilated. * < 50% respiratory change. KUB X-Ray 11/17/18 08:21 IMPRESSION: Enteric tube as above. D/ / Hayes Ang MD / Hayes Ang MD Interpreting Provider: Hayes Ang MD Chest X-Ray 11/17/18 09:37 IMPRESSION: Large right infrahilar mass with small right pleural effusion and mild interstitial edema. D/ / 11/17/2018 10:17:42 Ric Zapata MD / Sarita Spears Interpreting Provider: Ric Zapata MD Consult Discharge Plan - Plan Referrals: Jeff Dhillon MD [Primary Care Provider] -
[2018-11-18] MEDS: Heparin 25,000 UNIT/250 ML D5W 25,000 UNIT/250 ML IV.SOLN IVC SCH (10:27)
[2018-11-18] MEDS ORDERED: Furosemide 40 MG/4 ML VIAL IVP ONE (11:30)
[2018-11-18 12:28] LABS: Magnesium 2.4 mg/dL (1.6-2.6)
[2018-11-18] MEDS: FentaNYL (PF) 1,000 MCG in 0.9 % Sodium Chloride 80 ML IVC SCH (18:27)
[2018-11-18] MEDS ORDERED: Desitin (Zinc Oxide) 56 GM TUBE TP PRN (19:31)
[2018-11-19] MEDS: Insulin LISPRO 300 UNITS/3 ML VIAL SQ SCH ×4 (00:21→18:26)
[2018-11-19] MEDS: MethylPREDNISolone 40 MG/ML VIAL IVP SCH ×3 (00:29→17:13)
[2018-11-19] MEDS: Piperacillin/Tazobactam 3.375 GM in 0.9 % Sodium Chloride Mini Bag 100 ML IVPB SCH ×3 (02:40→18:25)
[2018-11-19] MEDS: Heparin 25,000 UNIT/250 ML D5W 25,000 UNIT/250 ML IV.SOLN IVC SCH (03:27)
[2018-11-19 04:03] LABS: Basophils % 0.2 %; Hematocrit 35.1 % (35.3-44.9); Hemoglobin 10.4 g/dL (11.5-15.4); Immature Granulocytes % 2.6 % (0-4); Lymphocytes # 0.6 K/mcL (0.6-4.6); Lymphocytes % 4.2 %; Mean Corpuscular HGB Conc 29.6 g/dL (31.6-35.5); Mean Corpuscular Hemoglobin 25.2 pg (28.0-33.3); Monocytes # 0.4 K/mcL (0.0-1.3); Monocytes % 2.8 %; Neutrophils # 11.9 K/mcL (1.6-8.9); Platelet Count 279 K/mcL (140-400); Red Blood Count 4.13 M/mcL (3.82-4.97); Red Cell Distribution Width 15.5 % (11.5-14.5); Segmented Neutrophils % 90.2 %; White Blood Count 13.2 K/mcL (4.3-11.1)
[2018-11-19 04:23] LABS: BUN/Creatinine Ratio 39 (6-26); Blood Urea Nitrogen 34 mg/dL (8-23); Calcium 9.3 mg/dL (8.6-10.3); Carbon Dioxide 33 mEq/L (23-29); Chloride 110 mEq/L (98-107); Glucose 152 mg/dL (70-105); Osmolality,Calculated 305 (280-300); Potassium 3.7 mEq/L (3.5-5.1); Sodium 142 mEq/L (136-145); eGFR For African Americans > 60 (> 60); eGFR For Non-African Americans > 60 (> 60)
--- NOTE | 2018-11-19 07:06 | Pulmonology Progress Note ---
<Travis Manriquez L - Last Filed: 11/19/18 13:30> Date of Encounter: 11/19/18 Time of Encounter: 07:04 Assessment and Plan (1) Respiratory failure requiring intubation Current Visit: Yes Status: Acute Acute Resp failure - Extubated yesterday. Did not tolerate BiPAP. Comfortable on NC now - Bronchosocpy with BAL performed 11/17/18, some bleeding during procedure, resolved - Sputum and blood cultures incubating - Transfer out of ICU today - BiPAP at night and PRN (2) Acute pulmonary embolism Current Visit: Yes Status: Acute Pulmonary embolism - small, non-obstructing PE noted on CTA - Heparin drip stopped - Sub q lovenox BID, will need penitentiary anticoagulation - High-risk for PE due to lung cancer Qualifiers: Pulmonary embolism type: other Acute cor pulmonale presence: without acute cor pulmonale Qualified Code(s): I26.99 - Other pulmonary embolism without acute cor pulmonale (3) Lung cancer Current Visit: Yes Status: Acute Lung Cancer - Adenocarcinoma R lung - Diagnosed with Biopsy on 11/07/18 - Outpatient work-up with Oncology/pulmonology in progress - Oncology consulted for update on treatment plan and coordination of outpatient follow-up Qualifiers: Laterality: right Lung location: lower lobe of lung Qualified Code(s): C34.31 - Malignant neoplasm of lower lobe, right bronchus or lung (4) Postobstructive pneumonia Current Visit: Yes Status: Acute Post-obstructive PNA - Persistent leukocytosis - Lactic acid was normal - Blood cultures pending, sputum cultures pending, BAL cultures pending - Zosyn day 4 of 7 (5) COPD (chronic obstructive pulmonary disease) Current Visit: Yes Status: Acute Symbicort BID - Duonbes q6 - Solumedrol 40 BID Qualifiers: COPD type: COPD with acute lower respiratory infection Qualified Code(s): J44.0 - Chronic obstructive pulmonary disease with acute lower respiratory infection (6) Chronic back pain Current Visit: Yes Status: Acute Hx of chronic back pain Qualifiers: Back pain location: back pain in unspecified location Back pain laterality: unspecified Qualified Code(s): M54.9 - Dorsalgia, unspecified; G89.29 - Other chronic pain (7) DVT prophylaxis Current Visit: Yes Status: Acute Heparin drip (8) HTN (hypertension) Current Visit: Yes Status: Acute HTN - Lopressor 25BID, switch to Lopressor 50 BID tomorrow - Hydralazine 10 q6h PRN for systolic greater than 160 Qualifiers: Hypertension type: essential hypertension Qualified Code(s): I10 - Essential (primary) hypertension Subjective Principal diagnosis: Respiratory Failure Interval history: Patient seen and examined. Afebrile. Episodes of hypotension overnight, systolic blood pressure measured at 199 at 2 AM. Extubated yesterday, continues BiPAP overnight. Switch to nasal cannula earlier this morning. Sitting comfortable in bed this morning. Denies headache, shortness of breath, chest pain, abdominal pain, nausea, vomiting. Objective PUL Vital signs: Last Vital Signs Temp 97.0 F L 11/19/18 03:08 Pulse 69 11/19/18 06:00 Resp 18 11/19/18 06:00 BP 152/71 11/19/18 06:00 Pulse Ox 95 11/19/18 06:00 Gen: Vitals noted. No acute distress Eyes: anicteric sclerae, moist conjunctivae. Pupils 4-5mm, round, equal HENT: Atraumatic, normocephalic; oropharynx clear with moist mucous membranes and no mucosal ulcerations. Neck: Trachea midline; supple, no thyromegaly or lymphadenopathy Cardiac: RRR, no murmurs, rubs or gallops, S1/S2 Pulmonary: Coarse breath sounds bilaterally, no wheezes or crackles or rhonchi. Equal chest expansion Abdomen: soft, nontender, no rigidity or guarding. No masses or hepatosplenomegaly MSK: ROM intact, no joint swelling noted Extremities: no BLE edema, nontender calf, no cyanosis or clubbing Skin: Normal temperature, turgor and texture; no rash, ulcers or subcutaneous nodules Neuro: moves all extremities, no focal deficits. Psych: Alert and oriented X3, normal mood and behavior Results - Laboratory Findings CBC and BMP: 11/19/18 03:40 11/19/18 03:40 ABG ABG pH 7.40 pH Units (7.32-7.45) 11/18/18 04:49 ABG pCO2 45 mmHg (35-45) 11/18/18 04:49 ABG pO2 86 mmHg (85-104) 11/18/18 04:49 ABG O2 Saturation 96 % (95-98) 11/18/18 04:49 PT/INR, D-dimer PT 15.1 Seconds (9.4-12.1) H 11/16/18 08:25 Abnormal lab findings: Abnormal lab results WBC 13.2 K/mcL (4.3-11.1) H 11/19/18 03:40 RBC 3.75 M/mcL (3.82-4.97) L 11/18/18 04:20 Hgb 10.4 g/dL (11.5-15.4) L 11/19/18 03:40 Hct 35.1 % (35.3-44.9) L 11/19/18 03:40 MCH 25.2 pg (28.0-33.3) L 11/19/18 03:40 MCHC 29.6 g/dL (31.6-35.5) L 11/19/18 03:40 RDW 15.5 % (11.5-14.5) H 11/19/18 03:40 Band Neutrophils % 16.0 % (0-4) H 11/17/18 04:00 Neutrophils # 11.9 K/mcL (1.6-8.9) H 11/19/18 03:40 Lymphocytes # 0.4 K/mcL (0.6-4.6) L 11/18/18 04:20 Monocytes # 1.5 K/mcL (0.0-1.3) H 11/16/18 08:25 Smudge Cells Present (Not Present) A 11/17/18 04:00 Toxic Vacuolation Present (Not Present) A 11/17/18 04:00 Polychromasia 1+ (Not Present) A 11/16/18 08:25 Hypochromasia Present (Not Present) A 11/16/18 08:25 PT 15.1 Seconds (9.4-12.1) H 11/16/18 08:25 APTT 24.9 Seconds (26.0-36.0) L 11/16/18 08:25 ABG pH 7.46 pH Units (7.32-7.45) H 11/17/18 04:43 ABG pCO2 50 mmHg (35-45) H 11/16/18 18:03 ABG pO2 115 mmHg (85-104) H 11/17/18 04:43 ABG HCO3 28 mEq/L (21-27) H 11/18/18 04:49 ABG Total CO2 29 mEq/L (20-26) H 11/18/18 04:49 ABG O2 Saturation 99 % (95-98) H 11/17/18 04:43 ABG Base Excess 5 mEq/L (-2 to 3) H 11/17/18 04:43 Chloride 110 mEq/L (98-107) H 11/19/18 03:40 Carbon Dioxide 33 mEq/L (23-29) H 11/19/18 03:40 BUN 34 mg/dL (8-23) H 11/19/18 03:40 Est GFR (Non-Af Amer) 53 (> 60) L 11/18/18 04:20 BUN/Creatinine Ratio 39 (6-26) H 11/19/18 03:40 Glucose 152 mg/dL (70-105) H 11/19/18 03:40 POC Glucose 143 mg/dL (70-99) H 11/18/18 23:30 Hemoglobin A1c 6.5 % (-5.6) H 11/16/18 17:04 Calculated Osmolality 305 (280-300) H 11/19/18 03:40 AST 40 Units/L (13-39) H 11/16/18 09:15 Alkaline Phosphatase 114 Units/L (34-104) H 11/16/18 09:15 Ammonia 120 mcmol/L (16-53) H 11/16/18 09:18 Troponin I 0.08 ng/mL (< 0.04) H* 11/16/18 09:15 B-Natriuretic Peptide 261 pg/mL (Less than 100) H 11/16/18 08:05 Serum Total Protein 5.6 g/dL (6.4-8.9) L 11/17/18 07:55 Albumin 2.7 g/dL (3.5-5.7) L 11/17/18 07:55 Globulin 3.7 g/dL (2.4-3.5) H 11/16/18 09:15 Albumin/Globulin Ratio 0.9 (1.1-2.2) L 11/17/18 07:55 Urine Protein 100 mg/dL (Neg-Trace) H 11/16/18 08:36 Urine Blood Trace (Negative) H 11/16/18 08:36 Granular Casts Few per lpf (None Seen) H 11/16/18 08:36 Ur Culture Indicated? YES (NO) A 11/16/18 08:36 Fluid Appearance Cloudy (Clear) A 11/17/18 13:51 Vancomycin Trough 26 mcg/mL (5-10) H 11/18/18 11:00 - Microbiology Findings Microbiology Findings: Microbiology, Last 48 Hours 11/16/18 20:00 Sputum Culture - Preliminary Sputum 11/17/18 13:51 Respiratory Culture - Preliminary Right Middle Lobe Lung 11/17/18 13:51 Fungal Culture - Preliminary Right Middle Lobe Lung Culture is incubating. 11/16/18 08:36 Urine Culture - Final Urine,Catheterized (Straight) No significant growth. - Clinical Findings Intake & Output: Intake & Output 11/18/18 11/18/18 11/19/18 15:59 23:59 07:59 Intake Total 567.9 / 1757.0 285.1 / 1757.0 149 / 149 Output Total 1075 / 2000 500 / 2000 400 / 400 Balance -507.1 / -243.0 -214.9 / -243.0 -251 / -251 Weight 74.8 kg Consult Discharge Plan - Plan Referrals: Jeff Dhillon MD [Primary Care Provider] - <Gato Mclaughlin S - Last Filed: 11/19/18 21:18> Date of Encounter: 11/19/18 Objective PUL Vital signs: Last Vital Signs Temp 98.1 F 11/19/18 19:08 Pulse 100 11/19/18 19:08 Resp 18 11/19/18 19:08 BP 184/75 11/19/18 19:08 Pulse Ox 91 11/19/18 19:08 Results - Laboratory Findings CBC and BMP: 11/19/18 03:40 11/19/18 03:40 ABG ABG pH 7.40 pH Units (7.32-7.45) 11/18/18 04:49 ABG pCO2 45 mmHg (35-45) 11/18/18 04:49 ABG pO2 86 mmHg (85-104) 11/18/18 04:49 ABG O2 Saturation 96 % (95-98) 11/18/18 04:49 PT/INR, D-dimer PT 15.1 Seconds (9.4-12.1) H 11/16/18 08:25 Abnormal lab findings: Abnormal lab results WBC 13.2 K/mcL (4.3-11.1) H 11/19/18 03:40 RBC 3.75 M/mcL (3.82-4.97) L 11/18/18 04:20 Hgb 10.4 g/dL (11.5-15.4) L 11/19/18 03:40 Hct 35.1 % (35.3-44.9) L 11/19/18 03:40 MCH 25.2 pg (28.0-33.3) L 11/19/18 03:40 MCHC 29.6 g/dL (31.6-35.5) L 11/19/18 03:40 RDW 15.5 % (11.5-14.5) H 11/19/18 03:40 Band Neutrophils % 16.0 % (0-4) H 11/17/18 04:00 Neutrophils # 11.9 K/mcL (1.6-8.9) H 11/19/18 03:40 Lymphocytes # 0.4 K/mcL (0.6-4.6) L 11/18/18 04:20 Monocytes # 1.5 K/mcL (0.0-1.3) H 11/16/18 08:25 Smudge Cells Present (Not Present) A 11/17/18 04:00 Toxic Vacuolation Present (Not Present) A 11/17/18 04:00 Polychromasia 1+ (Not Present) A 11/16/18 08:25 Hypochromasia Present (Not Present) A 11/16/18 08:25 PT 15.1 Seconds (9.4-12.1) H 11/16/18 08:25 APTT 24.9 Seconds (26.0-36.0) L 11/16/18 08:25 ABG pH 7.46 pH Units (7.32-7.45) H 11/17/18 04:43 ABG pCO2 50 mmHg (35-45) H 11/16/18 18:03 ABG pO2 115 mmHg (85-104) H 11/17/18 04:43 ABG HCO3 28 mEq/L (21-27) H 11/18/18 04:49 ABG Total CO2 29 mEq/L (20-26) H 11/18/18 04:49 ABG O2 Saturation 99 % (95-98) H 11/17/18 04:43 ABG Base Excess 5 mEq/L (-2 to 3) H 11/17/18 04:43 Chloride 110 mEq/L (98-107) H 11/19/18 03:40 Carbon Dioxide 33 mEq/L (23-29) H 11/19/18 03:40 BUN 34 mg/dL (8-23) H 11/19/18 03:40 Est GFR (Non-Af Amer) 53 (> 60) L 11/18/18 04:20 BUN/Creatinine Ratio 39 (6-26) H 11/19/18 03:40 Glucose 152 mg/dL (70-105) H 11/19/18 03:40 POC Glucose 143 mg/dL (70-99) H 11/18/18 23:30 Hemoglobin A1c 6.5 % (-5.6) H 11/16/18 17:04 Calculated Osmolality 305 (280-300) H 11/19/18 03:40 AST 40 Units/L (13-39) H 11/16/18 09:15 Alkaline Phosphatase 114 Units/L (34-104) H 11/16/18 09:15 Ammonia 120 mcmol/L (16-53) H 11/16/18 09:18 Troponin I 0.08 ng/mL (< 0.04) H* 11/16/18 09:15 B-Natriuretic Peptide 261 pg/mL (Less than 100) H 11/16/18 08:05 Serum Total Protein 5.6 g/dL (6.4-8.9) L 11/17/18 07:55 Albumin 2.7 g/dL (3.5-5.7) L 11/17/18 07:55 Globulin 3.7 g/dL (2.4-3.5) H 11/16/18 09:15 Albumin/Globulin Ratio 0.9 (1.1-2.2) L 11/17/18 07:55 Urine Protein 100 mg/dL (Neg-Trace) H 11/16/18 08:36 Urine Blood Trace (Negative) H 11/16/18 08:36 Granular Casts Few per lpf (None Seen) H 11/16/18 08:36 Ur Culture Indicated? YES (NO) A 11/16/18 08:36 Fluid Appearance Cloudy (Clear) A 11/17/18 13:51 Vancomycin Trough 26 mcg/mL (5-10) H 11/18/18 11:00 - Microbiology Findings Microbiology Findings: Microbiology, Last 48 Hours 11/16/18 20:00 Sputum Culture - Final Sputum 11/17/18 13:51 Acid Fast Stain - Final Right Middle Lobe Lung 11/17/18 13:51 Respiratory Culture - Final Right Middle Lobe Lung 11/17/18 13:51 Fungal Culture - Preliminary Right Middle Lobe Lung Culture is incubating. - Clinical Findings Intake & Output: Intake & Output 11/19/18 11/19/18 11/19/18 07:59 15:59 23:59 Intake Total 149 / 770 521 / 770 100 / 770 Output Total 800 / 1400 350 / 1400 250 / 1400 Balance -651 / -630 171 / -630 -150 / -630 Weight 74.8 kg - Attending Attestation Attending Attestation I saw and evaluated this patient and my medical decision-making was reviewed with the Resident Physician. I agree with the documented findings, disposition and treatment plan as described except to the extent set forth below. We independently had [id number] contact with the patient I Patient seen and examined at bedside Labs, radiology, chart personally reviewed. Management was reviewed during multidisciplinary critical care rounds. LENS ASSORTER: Patient is intubated , mechanically ventilated patient intubated and sedated. No focal neurological deficit no clinical seizure activity concern for brain metastasis because of the recently diagnosed lung cancer CT scan did not show any evidence of metastasis or edema. EEG did not show any evidence of focal epileptiform activities. 11/18 patient does not have any evidence of encephalopathy no focal neurological deficit 11/19 patient is conscious oriented no evidence of encephalopathy or any focal neurological deficit. Pulm: Patient has acceptable oxygenation and ventilation adjusted to low tidal volume strategy at this the minute ventilation. Patient may have a component of hydrostatic pulmonary edema postobstructive pneumonia enlarging right-sided lung mass complicated by small right middle lobe segmental branches pulmonary embolism patient is hemodynamically stable patient has significant bronchospasm to give every 2 bronchodilators 11/18 patient did not pass the spontaneous breathing trial will reattempt with the pressure support ventilation if she passes will need possible BIPAP support if she goes on respiratory distress.Did bronchoscopy with BAL yesterday. Patient is heparin for pulmonary embolism 11/19 patient has acceptable oxygenation and ventilation de-escalate antibiotic according to BAL cultures. Patient has right lower lobe adenocarcinoma was likely a stage IIIa. Waiting for PET CT scan and MRI pain Cards: Patient has pulmonary embolism patient was hemodynamically stable now and being intubated and mechanical ventilated patient is having some soft pressures. We will get the echocardiogram to check for RV function and LV function. 11/18 patient is hemodynamically stable will do gentle diuresis as tolerated 11/19 patient is hemodynamically stable to diuresis when needed . FEN-GI: Advance diet as tolerated Renal: Labs and output were reviewed. ID: To cover with broad-spectrum antibiotics for postobstructive pneumonia will descalate antibiotics Heme/Onc: Labs reviewed, patient has recently diagnosed adenocarcinoma of lung patient is following up with oncology. There is no organisms growing in BAL Endo: Glucose Monitored Integ/MSK: Skin Care per routine ICU Nursing Protocol to prevent ulcers. Lines: All lines examined without evidence of infection : Dispo: can be transferred to medical telemetry CODE: Full code
[2018-11-19] MEDS ORDERED: *HR* LORazepam 0.5 MG TABLET PO PRN (07:26)
[2018-11-19] MEDS: Budesonide/Formoterol 160/4.5 1 PUFF INH IH SCH ×2 (07:31→22:10)
[2018-11-19] MEDS: Pantoprazole 40 MG VIAL IVP SCH (08:48)
--- NOTE | 2018-11-19 09:29 | Internal Med Progress Note ---
Hospitalist Progress Note - Encounter Date of Encounter: 11/19/18 Time of Encounter: 09:18 - Subjective Interval History: ICU Course: Ms. 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 She fell down on the grass. She was unresponsive but was breathing the wh ole time with gasping per her . states her eyes were rolled back but she did not have any seizure-like activity. EMS was summoned and she was brought to the emergency room, with Ambu bag being performed. Patient was quickly intubated on arrival to the emergency room. She was placed on propofol initially but had a drop in her blood pressure, and was transiently switched to Precedex. She is now back on propofol. Workup included a bedside echocardiogram which showed near-complete emptying of left ventricle with what appeared to be normal systolic function. IVC was measured near the liver a 1.2 cm. Aorta appeared normal. She was given IV fluids and blood pressure improved . She had a CT of her head noncontrast which showed no acute process. C-spine CT was negative. She had a stat CT of her thorax which showed a very small nonobstructing pulmonary embolism in the medial segment of the right middle lobe. She also has what appears to be increasing size of a malignant mass in the medial base of the right middle lobe and right lower lobe, as well as several by basilar pulmonary metastases present. She had complete occlusion of the bronchus intermedius by adjacent lymphadenopathy, concern for developing postobstructive pneumonia. There is some mild pulmonary vascular congestion, and moderate emphysematous changes. Incidentally noted 3.5 cm infrarenal AAA. 11/18: Patient is currently day #3 of ventilatory support. We attempted a CPAP trial today although after about 2 hours she became hypertensive and tachypneic, and is now back on ventilatory support. Patient had a BAL performed yesterday which showed a lung mass 5 cm distal to the right mainstem bronchus, with some bleeding. Some fluid was aspirated, sent for culture. There was lots of mucus. Thus far blood cultures remain negative. BAL aspirate shows no growth. She remains on Zosyn and vancomycin day #3. 11/19: Patient was successfully extubated yesterday. She is doing well on supplemental oxygen at 4 L per nasal cannula. She does have a mild cough productive of clear to pink tinged sputum. No chest pain. No nausea or vomiting. No fevers or chills. Other than that mentioned above a 10 point review of systems is negative Patient is now stable to transfer to a general medical bed - Exam Vitals: Temp Pulse Resp BP Pulse Ox 97.6 F 90 23 167/74 90 11/19/18 07:10 11/19/18 08:00 11/19/18 08:00 11/19/18 08:00 11/19/18 08:00 Exam: General: Patient is awake alert and oriented 3, no acute distress Skin warm and dry Neck is supple Lungs show coarse breath sounds on right, diminished breath sounds at bases, no wheeze Ht: regular rate and rhythm Abdomen soft nontender nondistended with normoactive bowel sounds Extremities show trace edema No gross focal neurologic deficits - Summary of Assessment and Plan Summary of Assessment and Plan: Acute loss of consciousness/syncope -I suspect this is due to acute pulmonary embolism -I will view EKG -Cannot rule out a seizure, will obtain EEG, question if patient has underlying MUSIC PROFESSOR metastases 11/17: EEG showed no seizure activity. CT scan head was negative. Continue to monitor. 11/19: Suspect due to PE. No further workup at this time Acute on chronic combined hypoxemic and hypercarbic respiratory failure -Patient continues on ventilatory support -Multifactorial -She has prob post obx pneumonia which is certainly contributing to her hypoxemia as well as underlying COPD, and a new PE -pulm med consulted 11/17: Jesuduss today. Bronchoscopy performed as mentioned above 11/19: Successfully extubated yesterday. Continues on 4 L of oxygen per nasal cannula. Stage III lung cancer -oncology following Acute pulmonary embolism -on hep gtt -no acute right heart failure on exam, monitor 11/19: Transitioned to therapeutic Lovenox - for now plan is indefinite Lovenox therapy given hx CA Postobstructive bacterial pneumonia with sepsis -day #4 of 7 Zosyn -cx data ngtd including blood cx and BAL COPD -aggressive BD therapy. pulm toilet, Solumedrol, transition to po prednisone in 1-2 days -monitor HTN -added Lopressor 25 mg po bid -also added low dose prn ativan as pt is anxious and this may be sontributing to her high BP Elevated ammonia level -Unclear etiology, no documented history of liver disease -He is mentating an awake and alert, I will repeat 11/17: Repeat level is 46 Chronic back pain -home meds, monitor -?underlying mets DVT prophy -on hep gtt Full Code I discussed the case with Dr Mclaughlin, Pulm/Critical Care at bedside - Time Spent with Patient Total time spent is greater than 50% in coordination of care (as documented) at patient's floor/unit and/or counseling patient: Internal Medicine: Result - Labs CBC & Chem 7: 11/19/18 03:40 11/19/18 03:40 Labs: Short CBC 11/19/18 Range/Units 03:40 WBC 13.2 H (4.3-11.1) K/mcL Hgb 10.4 L (11.5-15.4) g/dL Hct 35.1 L (35.3-44.9) % Plt Count 279 (140-400) K/mcL Neutrophils # 11.9 H (1.6-8.9) K/mcL BMP 11/18/18 11/19/18 04:20 03:40 Sodium 142 142 Potassium 3.5 3.7 Chloride 107 110 H Carbon Dioxide 28 33 H BUN 40 H 34 H Creatinine 1.03 0.88 Glucose 181 H 152 H Calcium 8.9 9.3 - ABG Interpretation ABG results: ABG ABG pH 7.40 pH Units (7.32-7.45) 11/18/18 04:49 ABG pCO2 45 mmHg (35-45) 11/18/18 04:49 ABG pO2 86 mmHg (85-104) 11/18/18 04:49 ABG O2 Saturation 96 % (95-98) 11/18/18 04:49 PT/INR, D-dimer PT 15.1 Seconds (9.4-12.1) H 11/16/18 08:25 - Impressions Impressions Chest X-Ray 11/18/18 09:32 IMPRESSION: Persistent right infrahilar mass with mild interstitial edema and small pleural effusions. D/ / 11/18/2018 11:12:12 Ric Zapata MD / Sarita Spears Interpreting Provider: Ric Zapata MD Consult Discharge Plan - Plan Referrals: Jeff Dhillon MD [Primary Care Provider] -
[2018-11-19] MEDS ORDERED: Ipratropium/Albuterol Neb 3 ML IH SCH (10:00)
[2018-11-19] MEDS ORDERED: *HR* Enoxaparin 80 MG/0.8 ML SYRINGE SQ SCH (10:00)
[2018-11-19] MEDS ORDERED: Acetaminophen 325 MG TABLET PO PRN (13:48)
[2018-11-19] MEDS ORDERED: D5% in Water 1,000 ML IVC PRN (13:48)
[2018-11-19] MEDS ORDERED: *HR* Dextrose 50 % in Water (Syg) 50 ML SYRINGE IVP PRN (13:48)
[2018-11-19] MEDS ORDERED: Desitin (Zinc Oxide) 56 GM TUBE TP PRN (13:48)
[2018-11-19] MEDS ORDERED: Dextrose Gel 15 GM/37.5 ML TUBE PO PRN ×2 (13:48)
[2018-11-19] MEDS ORDERED: Ipratropium/Albuterol Neb 3 ML ONE (16:09)
[2018-11-19] MEDS: Ipratropium/Albuterol Neb 3 ML IH SCH ×2 (16:12→22:11)
[2018-11-19] MEDS: *HR* Enoxaparin 80 MG/0.8 ML SYRINGE SQ SCH (16:21)
[2018-11-19] MEDS ORDERED: MethylPREDNISolone 40 MG/ML VIAL IVP SCH (18:00)
[2018-11-20] MEDS ORDERED: NIFEdipine 10 MG CAPSULE PO ONE (00:23)
[2018-11-20] MEDS: Insulin LISPRO 300 UNITS/3 ML VIAL SQ SCH ×5 (00:36→21:00)
[2018-11-20] MEDS: Piperacillin/Tazobactam 3.375 GM in 0.9 % Sodium Chloride Mini Bag 100 ML IVPB SCH ×3 (02:27→17:57)
[2018-11-20] MEDS ORDERED: *HR* Metoprolol 5 MG/5 ML VIAL IVP ONE ×3 (02:32→05:31)
[2018-11-20] MEDS: *HR* Enoxaparin 80 MG/0.8 ML SYRINGE SQ SCH ×2 (02:32→12:17)
[2018-11-20] MEDS: Ipratropium/Albuterol Neb 3 ML IH SCH ×4 (04:28→21:54)
[2018-11-20] MEDS: MethylPREDNISolone 40 MG/ML VIAL IVP SCH ×2 (05:37→17:56)
[2018-11-20 06:38] LABS: Hematocrit 41.1 % (35.3-44.9); Mean Corpuscular HGB Conc 29.9 g/dL (31.6-35.5); Mean Corpuscular Hemoglobin 25.7 pg (28.0-33.3); Mean Corpuscular Volume 85.8 fL (83.0-100.0); Mean Platelet Volume 11.3 fL (9.4-12.4); Nucleated Red Blood Cells 0.2 /100 WBC (0); Platelet Count 292 K/mcL (140-400); Red Blood Count 4.79 M/mcL (3.82-4.97); Red Cell Distribution Width 15.8 % (11.5-14.5)
[2018-11-20 06:49] LABS: Hemoglobin 12.3 g/dL (11.5-15.4); White Blood Count 20.8 K/mcL (4.3-11.1)
[2018-11-20 06:59] LABS: BUN/Creatinine Ratio 37 (6-26); Blood Urea Nitrogen 28 mg/dL (8-23); Calcium 9.9 mg/dL (8.6-10.3); Carbon Dioxide 33 mEq/L (23-29); Chloride 104 mEq/L (98-107); Glucose 98 mg/dL (70-105); Osmolality,Calculated 303 (280-300); Potassium 4.4 mEq/L (3.5-5.1); Sodium 144 mEq/L (136-145); eGFR For African Americans > 60 (> 60); eGFR For Non-African Americans > 60 (> 60)
[2018-11-20 07:57] LABS: Lymphocytes # 1.7 K/mcL (0.6-4.6); Monocytes # 1.7 K/mcL (0.0-1.3); Neutrophils # 17.5 K/mcL (1.6-8.9)
[2018-11-20 07:58] LABS: Platelet Estimate Normal (Normal)
[2018-11-20] MEDS: Budesonide/Formoterol 160/4.5 1 PUFF INH IH SCH ×2 (10:35→21:54)
--- NOTE | 2018-11-20 12:10 | Oncology Inp Consult Note ---
<JohnSaima Lockett - Last Filed: 11/20/18 18:26> Date of Encounter: 11/20/18 Time of Encounter: 11:00 Assessment and Plan (1) Acute pulmonary embolism Status: Acute Assessment and plan: CTA on presentation revealed very small nonobstructing pulmonary embolism to the medial segment of the right middle lobe. Plan: Secondary to hypercoagulable state due to underlying malignancy Currently on therapeutic lovenox dosing 1mg/kg Q12H BLE venous doppler ordered for baseline Echo 11/16 shows normal right ventricular function/structure S/P extubation and weaned to 4L per NC Oncology is ok with transition to Eliquis at discharge Qualifiers: Pulmonary embolism type: other Acute cor pulmonale presence: without acute cor pulmonale Qualified Code(s): I26.99 - Other pulmonary embolism without acute cor pulmonale (2) Lung cancer Status: Acute Assessment and plan: Bronchoscopy biopsy of the right lung mass on 11/07/2018 revealed adenocarcinoma of the right lung Patient was seen in consultation with Dr. Romano on 11/15/2018 Staging workup is still underway, cT4, at least N2 with subcarinal/right hilar PETE, M-dependant upon PET/Brain MRI which has not yet been completed Treatment options will vary upon further staging workup, treatment to begin on outpatient basis once she recovers from her acute events Plan: Recommend focus on PT/OT/Nutritional support, wean O2 as tolerated, optimize respiratory status Discussed case with Dr. Romano, treating oncologist, to consider potential role for upfront palliative radiotherapy given the size of right lung mass that is almost nearly obstructing (greater than 90% obstruction noted on bronchoscopy) of right mainstem bronchus, about 5 cm from gauri Further recommendations pending radiation oncology review-Dr. Romano will discuss with Rad Onc Brain MRI ordered for staging CT abdomen/pelvis with IV contrast for staging PET will be rescheduled as outpatient Qualifiers: Laterality: right Lung location: lower lobe of lung Qualified Code(s): C34.31 - Malignant neoplasm of lower lobe, right bronchus or lung - Data of Consult Patient: known to practice within the last 3 years Consult date: 11/20/18 Requesting Physician: Hanh Forte Primary Care Provider: Jeff Dhillon MD - Consult Narrative Reason for consult: adenocarcinoma right lung History of present illness: 68 year old female with only diagnosed adenocarcinoma of the right lung in October 2018. Bronchoscopy biopsy of the right lung mass on 11/07/2018 revealed no carcinoma. She was seen in initial evaluation by Dr. Romano on 11/15/2018 with the plan to complete staging to determine the best course of treatment. PET scan/Brain MRI is yet to be completed. Genetic testing for PD L1 and next generation sequencing is in process. She was also planned for consultation with radiation oncology. Patient was sent to the ER after collapsing while trying to get her car following her pulmonology appointment on 11/17/2018. She was found unresponsive in gasping for air, to the emergency room with Ambu bag. She was debating upon arrival to the ER. CT of the head was negative. C-spine CT was negative. CTA of the chest revealed a very small nonobstructing pulmonary embolism to the medial segment of the right middle lobe, mild increase in the size of the very large malignant mass in the medial base of the right middle lobe and right lower lobe, several bibasilar pulmonary metastases present, complete occlusion of the bronchus intermedius by adjacent adenopathy now present with developing postobstructive pneumonia or atelectasis, slight pulmonary vascular congestion. Bronchoscopy 11/17/18 revealed nearly obstructing (greater than 90% obstructing) mass 5 cm from the gauri in the RLL. Bloody secretions were present. She was started on a heparin gtt. On zosyn for postobstructive pneumonia. She has since been extubated and now on 2A weaned to 4L nasal cannula. Past Med Surg Social Fam HX - Past Medical History Medical history: cancer, COPD Additional medical history: stage 3 lung cancer Psychiatric history: no psych history - Past Surgical History Surgical History: no surgical history - Social History Smoking Status: Former smoker Smokeless Tobacco Status: No Alcohol use: none Drug use: none Medications and Allergies Albuterol Sulfate [Ventolin Hfa] 2 inh IH Q6H PRN 11/16/18 [History] Budesonide/Formoterol 160/4.5 [Symbicort 160/4.5] 2 puff IH BIDR 11/16/18 [History] Folic Acid 1 mg PO DAILY 11/16/18 [History] PredniSONE [Deltasone] 20 mg PO DAILY 11/16/18 [History] Apixaban [Eliquis] 5 mg PO BID #75 tablet 11/21/18 [Rx] Allergy/AdvReac Type Severity Reaction Status Date / Time No Known Allergies Allergy Verified 11/17/18 14:46 Constitutional: Present: anorexia, fatigue, weakness, weight loss. Absent: chills, fever(s) Eyes: Absent: change in vision Nose, mouth and throat: Absent: dysphagia, odynophagia Cardiovascular: Absent: chest pain, edema Respiratory: Present: cough, dyspnea, dyspnea on exertion Gastrointestinal: Absent: abdominal pain, hematochezia, melena, nausea, vomiting Genitourinary: Absent: dysuria Musculoskeletal: Present: muscle weakness Integumentary: Absent: rash, wounds Neurological: Absent: dizziness, focal weakness Psychiatric: Absent: confusion Hematologic/Lymphatic: Present: as per HPI. Absent: lymphadenopathy Oncology - Exam - Constitutional General appearance: cooperative, no acute distress, no febrile - Head Head exam: Present: atraumatic - ENT ENT exam: Present: mucous membranes moist, normal oropharynx - Respiratory Respiratory exam: Present: decreased breath sounds, rhonchi. Absent: respirato ry distress - Cardiovascular Cardiovascular exam: Present: RRR - GI/Abdominal GI/Abdominal exam: Present: normal bowel sounds, soft. Absent: tenderness - Extremities Exam Extremities exam: Present: normal inspection. Absent: calf tenderness - Neurological Exam Neurological exam: Present: alert, oriented X3, no focal deficits, strengths equal and symetr throughout - Psychiatric Psychiatric exam: Present: normal affect, normal mood - Skin Skin exam: Present: dry, normal color, warm Consult Discharge Plan - Plan Referrals: Jeff Dhillon MD [Primary Care Provider] - Prescriptions: Apixaban [Eliquis] 5 mg PO BID #75 tablet Prescription Printed Inpatient Charges Provider: Dr. Carin Romano <Chiquis Romano S - Last Filed: 11/21/18 08:26> Date of Encounter: 11/20/18 - Data of Consult Requesting Physician: Hanh Forte Primary Care Provider: Jeff Dhillon MD Inpatient Charges Provider: Dr. Carin Romano Consult - Inpatient: [id number] - Attending Attestation I examined this patient and my medical decision-making was reviewed with the Advanced Practice Nurse. I agree with the documented findings, disposition and treatment plan as described except to the extent set forth below. 1. Right lung adenocarcinoma. Large mass in the right lung spanning middle lobe and lower lobe causing obstruction of the bronchus intermedius and patient admitted with shortness of breath cT4 (Size more than 7 cm) cN2, Mx MRI brain during the hospitalization negative for metastasis. Patient will not be able to get PET scan for few days as she is an inpatient. We will proceed with CT abdomen and pelvis with IV contrast. If no clear metastasis would consider concurrent chemoradiation. We will use weekly carbotaxol. Radiation oncology consult 2. Small nonobstructing pulmonary embolus incidental finding during CT chest during this hospitalization. Recommend transitioning to Elequis 5 mg twice a day on discharge 3. COPD shortness of breath. Likely the large mass dissecting right bronchus is contributing to majority of shortness of breath. We will consider starting treatment as soon as possible I reviewed the CT abdomen and pelvis pictures. Official report pending. No obvious liver lesions. Some sclerosis in the bones noted mainly in the vertebral bodies
[2018-11-20] MEDS ORDERED: Gadolinium Contrast Agent (WT Based) IV PRN (12:12)
[2018-11-20] MEDS: *HR* LORazepam 0.5 MG TABLET PO PRN ×2 (12:17→21:11)
[2018-11-20] MEDS: amLODIPine 5 MG TABLET PO SCH (12:17)
--- NOTE | 2018-11-20 12:17 | Internal Med Progress Note ---
Hospitalist Progress Note - Encounter Date of Encounter: 11/20/18 Time of Encounter: 09:00 - Subjective Interval History: Patient was seen at bedside. Her shortness of the breath has been improving. Denies fever, chills, rigors. She has been exerting herself lately and thinks that she has been doing better than before. Family was at bedside. All que stions were answered. - Exam Vitals: Temp Pulse Resp BP Pulse Ox 98.1 F 88 17 197/81 91 11/20/18 11:08 11/20/18 11:11/20/18 11:11/20/18 11:11/20/18 11:08 Exam: General: Alert and oriented, mild physical distress, able to follow commands. HEENT: No thyromegaly, no lymphadenopathy, no discharge. Eyes: No discharge. Normal conjuctiva, no icterus Respiratory: Normal vesicular breathing, no added sounds, breathing equal in both sides. CVS: Normal heart sounds, no murmurs, regular rhthm, no edema Extremities: No peripheral edema, peripheral pulses intact. Lymph nodes: No lymphadenopathy Gastrointestinal: Soft, nontender abdomen, normal abdominal sounds. No distention noted. Genitourinary: No paravertebral tenderness. Skin: No rash, ulcers or wound. Neurological: Alert and oriented. No focal deficits. Cranial nerves II-XII intact. - Assessment and Plan (1) Acute pulmonary embolism Current Visit: Yes Status: Acute Assessment and Plan: Etiology unclear. Could be related to underlying cancer. Will need to be on lifelong and accommodation considering the history of cancer. Currently on Lovenox twice a day. Oncology on board. Appreciate recommendations. (2) Postobstructive pneumonia Current Visit: Yes Status: Acute Assessment and Plan: CT scan evidence of pneumonia. Blood cultures have been negative. Continue Zosyn for a total of 7 days. (3) Syncope Current Visit: Yes Status: Acute Assessment and Plan: Likely related to pulmonary embolism. Management of the pulmonary embolism mentioned above. (4) COPD (chronic obstructive pulmonary disease) Current Visit: Yes Status: Acute Assessment and Plan: Bursal respiratory status seems to be a combination of pneumonia, pulmonary embolism and COPD exacerbation. Continue management of COPD exacerbation with breathing treatments and IV steroids.. Continue home inhalers. (5) HTN (hypertension) Current Visit: Yes Status: Acute Assessment and Plan: Blood pressure remains to be elevated. Seems to be a component of anxiety. Continue lorazepam. Continue metoprolol 50 mg twice a day. Added amlodipine. Continue hydralazine when necessary for the systolic blood pressure above 180. (6) Lung cancer Current Visit: Yes Status: Acute Assessment and Plan: Oncology on board. Appreciate recommendations. (7) Respiratory failure requiring intubation Current Visit: Yes Status: Acute Assessment and Plan: Resolved (8) Serum ammonia increased Current Visit: Yes Status: Resolved Assessment and Plan: Serum ammonia with increased at the time of presentation to 120, improved to 46. Etiology unclear. No interventions at this point. - Summary of Assessment and Plan Summary of Assessment and Plan: WIll order PT/OT as the pt seems very deconditioned. - Time Spent with Patient Total time spent is greater than 50% in coordination of care (as documented) at patient's floor/unit and/or counseling patient: Internal Medicine: Result - Labs CBC & Chem 7: 11/20/18 06:18 11/20/18 06:18 Labs: Short CBC 11/20/18 Range/Units 06:18 WBC 20.8 H D (4.3-11.1) K/mcL Hgb 12.3 D (11.5-15.4) g/dL Hct 41.1 (35.3-44.9) % Plt Count 292 (140-400) K/mcL Neutrophils # 17.5 H (1.6-8.9) K/mcL BMP 11/20/18 06:18 Sodium 144 Potassium 4.4 Chloride 104 Carbon Dioxide 33 H BUN 28 H Creatinine 0.75 Glucose 98 Calcium 9.9 - ABG Interpretation ABG results: ABG ABG pH 7.40 pH Units (7.32-7.45) 11/18/18 04:49 ABG pCO2 45 mmHg (35-45) 11/18/18 04:49 ABG pO2 86 mmHg (85-104) 11/18/18 04:49 ABG O2 Saturation 96 % (95-98) 11/18/18 04:49 PT/INR, D-dimer PT 15.1 Seconds (9.4-12.1) H 11/16/18 08:25 Consult Discharge Plan - Plan Referrals: Jeff Dhillon MD [Primary Care Provider] - (1) Acute pulmonary embolism Qualifiers: Pulmonary embolism type: other Acute cor pulmonale presence: without acute cor pulmonale Qualified Code(s): I26.99 - Other pulmonary embolism without acute cor pulmonale (4) COPD (chronic obstructive pulmonary disease) Qualifiers: COPD type: COPD with acute lower respiratory infection Qualified Code(s): J44.0 - Chronic obstructive pulmonary disease with acute lower respiratory infection (5) HTN (hypertension) Qualifiers: Hypertension type: essential hypertension Qualified Code(s): I10 - Essential (primary) hypertension (6) Lung cancer Qualifiers: Laterality: right Lung location: lower lobe of lung Qualified Code(s): C34.31 - Malignant neoplasm of lower lobe, right bronchus or lung
--- NOTE | 2018-11-20 18:06 | Electrocardiograph Report ---
[address] [id number] Test Date: 2018-11-17 Pat Name: Rancho Kumar Department: 109 Room: 2A Gender: F Dispensary Attendant: IDA : 1950 Requested By: Cuauhtemoc Finnegan Order Number: [id number] Reading MD: Ashlie Miller Measurements Intervals [place] Rate: 55 P: -44 MN: 125 QRS: 34 QRSD: 86 T: 34 QT: 507 QTc: 495 Interpretive Statements SINUS BRADYCARDIA PROLONGED QT INTERVAL Electronically Signed On 11-20-2018 18:05:10 EDT by Ashlie Miller
[2018-11-20] MEDS ORDERED: Isovue-370 500 ML BOTTLE IVP ONE (18:45)
[2018-11-21] MEDS: *HR* Enoxaparin 80 MG/0.8 ML SYRINGE SQ SCH ×2 (00:50→12:11)
[2018-11-21] MEDS: Piperacillin/Tazobactam 3.375 GM in 0.9 % Sodium Chloride Mini Bag 100 ML IVPB SCH ×3 (02:30→20:23)
[2018-11-21] MEDS: Ipratropium/Albuterol Neb 3 ML IH SCH ×4 (03:21→21:26)
[2018-11-21 04:51] LABS: Basophils # 0.1 K/mcL (0.0-0.2); Basophils % 0.6 %; Hematocrit 41.7 % (35.3-44.9); Hemoglobin 12.3 g/dL (11.5-15.4); Immature Granulocytes % 4.8 % (0-4); Lymphocytes # 1.1 K/mcL (0.6-4.6); Lymphocytes % 7.5 %; Mean Corpuscular HGB Conc 29.5 g/dL (31.6-35.5); Mean Corpuscular Hemoglobin 25.3 pg (28.0-33.3); Mean Corpuscular Volume 85.8 fL (83.0-100.0); Mean Platelet Volume 11.5 fL (9.4-12.4); Monocytes # 0.8 K/mcL (0.0-1.3); Monocytes % 5.2 %; Platelet Count 219 K/mcL (140-400); Red Blood Count 4.86 M/mcL (3.82-4.97); Red Cell Distribution Width 15.9 % (11.5-14.5); Segmented Neutrophils % 81.9 %; White Blood Count 14.6 K/mcL (4.3-11.1)
[2018-11-21 05:07] LABS: BUN/Creatinine Ratio 34 (6-26); Blood Urea Nitrogen 27 mg/dL (8-23); Calcium 9.3 mg/dL (8.6-10.3); Carbon Dioxide 30 mEq/L (23-29); Chloride 103 mEq/L (98-107); Glucose 163 mg/dL (70-105); Osmolality,Calculated 305 (280-300); Potassium 3.8 mEq/L (3.5-5.1); Sodium 143 mEq/L (136-145); eGFR For African Americans > 60 (> 60); eGFR For Non-African Americans > 60 (> 60)
[2018-11-21] MEDS: MethylPREDNISolone 40 MG/ML VIAL IVP SCH (06:22)
[2018-11-21] MEDS: Insulin LISPRO 300 UNITS/3 ML VIAL SQ SCH ×4 (08:31→20:24)
[2018-11-21] MEDS: Budesonide/Formoterol 160/4.5 1 PUFF INH IH SCH ×2 (09:54→21:26)
[2018-11-21] MEDS: amLODIPine 5 MG TABLET PO SCH (10:04)
--- NOTE | 2018-11-21 10:51 | Internal Med Progress Note ---
Hospitalist Progress Note - Encounter Date of Encounter: 11/21/18 Time of Encounter: 08:15 - Subjective Interval History: Patient was seen at bedside. She is feeling better than yesterday. Mentions that her breathing status is much improved as compared to yesterday. Denies chest pain. Denies fever, chills, rigors. Family at bedside. All the questio ns were answered. Likely disposition to skilled facility. - Exam Vitals: Temp Pulse Resp BP Pulse Ox 98.0 F 85 18 135/68 97 11/21/18 07:06 11/21/18 07:06 11/21/18 09:56 11/21/18 07:06 11/21/18 09:56 Exam: General: Alert and oriented, mild physical distress, able to follow commands. HEENT: No thyromegaly, no lymphadenopathy, no discharge. Eyes: No discharge. Normal conjuctiva, no icterus Respiratory: Normal vesicular breathing, no added sounds, breathing equal in both sides. CVS: Normal heart sounds, no murmurs, regular rhthm, no edema Extremities: No peripheral edema, peripheral pulses intact. Lymph nodes: No lymphadenopathy Gastrointestinal: Soft, nontender abdomen, normal abdominal sounds. No distention noted. Genitourinary: No paravertebral tenderness. Skin: No rash, ulcers or wound. Neurological: Alert and oriented. No focal deficits. Cranial nerves II-XII intact. - Assessment and Plan (1) Acute pulmonary embolism Current Visit: Yes Status: Acute Assessment and Plan: Etiology unclear. Could be related to underlying cancer. Will need to be on lifelong AC considering the history of cancer. Currently on Lovenox twice a day. Will transition to eliquis. (2) Postobstructive pneumonia Current Visit: Yes Status: Acute Assessment and Plan: CT scan evidence of pneumonia. Blood cultures have been negative. Sputum cultures non yielding yet Continue Zosyn for a total of 7 days. (3) Syncope Current Visit: Yes Status: Acute Assessment and Plan: Likely related to pulmonary embolism. Management of the pulmonary embolism mentioned above. (4) COPD (chronic obstructive pulmonary disease) Current Visit: Yes Status: Acute Assessment and Plan: Currnet respiratory status seems to be a combination of pneumonia, pulmonary embolism and COPD exacerbation. Continue management of COPD exacerbation with breathing treatments. Change to PO steroids, taper down Continue home inhalers. (5) HTN (hypertension) Current Visit: Yes Status: Acute Assessment and Plan: Blood pressure within better ranage now. Seems to be a component of anxiety. Continue lorazepam. Continue metoprolol 50 mg twice a day. Contnue amlodipine. Continue hydralazine when necessary for the systolic blood pressure above 180. (6) Lung cancer Current Visit: Yes Status: Acute Assessment and Plan: Oncology on board. Appreciate recommendations. (7) Respiratory failure requiring intubation Current Visit: Yes Status: Acute Assessment and Plan: Resolved (8) Hyperglycemia Current Visit: Yes Status: Acute Assessment and Plan: Mild hyperglycemia relatd o steroids, continue LDSS - Time Spent with Patient Total time spent is greater than 50% in coordination of care (as documented) at patient's floor/unit and/or counseling patient: Internal Medicine: Result - Labs CBC & Chem 7: 11/21/18 04:04 11/21/18 04:04 Labs: Short CBC 11/21/18 Range/Units 04:04 WBC 14.6 H (4.3-11.1) K/mcL Hgb 12.3 (11.5-15.4) g/dL Hct 41.7 (35.3-44.9) % Plt Count 219 (140-400) K/mcL Neutrophils # 12.0 H (1.6-8.9) K/mcL BMP 11/21/18 04:04 Sodium 143 Potassium 3.8 Chloride 103 Carbon Dioxide 30 H BUN 27 H Creatinine 0.80 Glucose 163 H Calcium 9.3 - ABG Interpretation ABG results: ABG ABG pH 7.40 pH Units (7.32-7.45) 11/18/18 04:49 ABG pCO2 45 mmHg (35-45) 11/18/18 04:49 ABG pO2 86 mmHg (85-104) 11/18/18 04:49 ABG O2 Saturation 96 % (95-98) 11/18/18 04:49 PT/INR, D-dimer PT 15.1 Seconds (9.4-12.1) H 11/16/18 08:25 - Impressions Impressions Brain MRI 11/20/18 13:36 IMPRESSION: 1. Motion degraded examination. 2. No acute intracranial abnormality. Specifically, no acute infarction or intracranial metastatic disease. 3. Sequela of mild chronic microvascular ischemic changes. D/ / 11/20/2018 13:53:19 Sol Baig MD / rhoda Interpreting Provider: Sol Baig MD Abdomen/Pelvis CT 11/21/18 08:20 IMPRESSION: Subtle nodularity of the adrenal glands. Recommend close attention on follow-up as this could represent early finding of adrenal metastasis. Large mass right lung with right-sided pleural effusion. Please see recent chest CT report for further description Nonobstructing right renal calculus Abdominal aortic aneurysm RECOMMENDATIONS: As part of a quality assurance project manager process, the following is included for reference: For management of fusiform AAA: 3.5-3.9 cm AAA, recommend follow-up every 2 years. References: J Am Angy Radiol 2013; 10(10):789-794; J Vasc Surg. 2018; 67:2-77 D/ / Geovanni Shepherd MD / Geovanni Shepherd MD Interpreting Provider: Geovanni Shepherd MD Consult Discharge Plan - Plan Referrals: Jeff Dhillon MD [Primary Care Provider] - Prescriptions: Apixaban [Eliquis] 5 mg PO BID #75 tablet Prescription Printed (1) Acute pulmonary embolism Qualifiers: Pulmonary embolism type: other Acute cor pulmonale presence: without acute cor pulmonale Qualified Code(s): I26.99 - Other pulmonary embolism without acute cor pulmonale (4) COPD (chronic obstructive pulmonary disease) Qualifiers: COPD type: COPD with acute lower respiratory infection Qualified Code(s): J44.0 - Chronic obstructive pulmonary disease with (acute) lower respiratory infection (5) HTN (hypertension) Qualifiers: Hypertension type: essential hypertension Qualified Code(s): I10 - Essential (primary) hypertension (6) Lung cancer Qualifiers: Laterality: right Lung location: lower lobe of lung Qualified Code(s): C34.31 - Malignant neoplasm of lower lobe, right bronchus or lung
[2018-11-22] MEDS: Apixaban 5 MG TABLET PO SCH ×2 (00:29→10:36)
[2018-11-22 01:25] LABS: Basophils # 0.1 K/mcL (0.0-0.2); Basophils % 0.5 %; Eosinophils % 0.1 %; Hematocrit 39.3 % (35.3-44.9); Hemoglobin 11.5 g/dL (11.5-15.4); Immature Granulocytes % 4.5 % (0-4); Lymphocytes # 1.2 K/mcL (0.6-4.6); Lymphocytes % 7.6 %; Mean Corpuscular HGB Conc 29.3 g/dL (31.6-35.5); Mean Corpuscular Hemoglobin 24.8 pg (28.0-33.3); Mean Corpuscular Volume 84.9 fL (83.0-100.0); Mean Platelet Volume 11.8 fL (9.4-12.4); Monocytes % 6.3 %; Neutrophils # 12.4 K/mcL (1.6-8.9); Nucleated Red Blood Cells 0.1 /100 WBC (0); Platelet Count 200 K/mcL (140-400); Red Blood Count 4.63 M/mcL (3.82-4.97); Red Cell Distribution Width 15.8 % (11.5-14.5); White Blood Count 15.3 K/mcL (4.3-11.1)
[2018-11-22 01:45] LABS: BUN/Creatinine Ratio 29 (6-26); Blood Urea Nitrogen 24 mg/dL (8-23); Calcium 8.8 mg/dL (8.6-10.3); Carbon Dioxide 32 mEq/L (23-29); Chloride 104 mEq/L (98-107); Glucose 124 mg/dL (70-105); Osmolality,Calculated 303 (280-300); Potassium 3.6 mEq/L (3.5-5.1); Sodium 144 mEq/L (136-145); eGFR For African Americans > 60 (> 60); eGFR For Non-African Americans > 60 (> 60)
[2018-11-22] MEDS: Piperacillin/Tazobactam 3.375 GM in 0.9 % Sodium Chloride Mini Bag 100 ML IVPB SCH ×2 (03:15→10:38)
[2018-11-22] MEDS: Ipratropium/Albuterol Neb 3 ML IH SCH ×3 (03:48→15:15)
[2018-11-22] MEDS ORDERED: predniSONE 20 MG TABLET PO SCH (09:00)
[2018-11-22] MEDS: Budesonide/Formoterol 160/4.5 1 PUFF INH IH SCH (10:21)
[2018-11-22] MEDS: Insulin LISPRO 300 UNITS/3 ML VIAL SQ SCH ×2 (10:36→12:04)
[2018-11-22] MEDS: amLODIPine 5 MG TABLET PO SCH (10:36)
[2018-11-22 11:22] VITALS: BP 132/74
--- NOTE | 2018-11-22 11:32 | Discharge Summary ---
- NOTES TO OUTPATIENT PROVIDER Notes to Outpatient Provider: Presented with syncope, diagnosed in the morning and 2 pulmonary embolism, being discharged on antibiotics and apixaban. Patient also has stage III lung cancer, being worked up for further management. Follow- up with oncology recommended. Also has abdominal aortic aneurysm with a follow- up recommended in 2 years. Orders not resulted at time of discharge: Pending orders 11/16/18 09:22 Urinalysis Reflex Cult & Micro [URIN] Stat 11/17/18 13:51 AFB Culture, Respiratory [TB] Routine AFB Smear [TB] Routine Fungal Culture [MYC] Routine Viral Culture,Respiratory [RM] Routine 11/17/18 13:52 Cytology [PTH] Routine Date of Encounter: 11/22/18 Time of Encounter: 08:15 - Discharge Diagnosis (1) Acute pulmonary embolism Priority: Primary Status: Acute Qualifiers: Pulmonary embolism type: other Acute cor pulmonale presence: without acute cor pulmonale Qualified Code(s): I26.99 - Other pulmonary embolism without acute cor pulmonale (2) Postobstructive pneumonia Priority: Secondary Status: Acute (3) Syncope Priority: Secondary Status: Acute Qualifiers: Syncope type: unspecified Qualified Code(s): R55 - Syncope and collapse (4) COPD (chronic obstructive pulmonary disease) Priority: Secondary Status: Acute Qualifiers: COPD type: COPD with acute lower respiratory infection Qualified Code(s): J44.0 - Chronic obstructive pulmonary disease with (acute) lower respiratory infection (5) HTN (hypertension) Priority: Secondary Status: Acute Qualifiers: Hypertension type: essential hypertension Qualified Code(s): I10 - Essential (primary) hypertension (6) Lung cancer Priority: Secondary Status: Acute Qualifiers: Laterality: right Lung location: lower lobe of lung Qualified Code(s): C34.31 - Malignant neoplasm of lower lobe, right bronchus or lung (7) Respiratory failure requiring intubation Priority: Secondary Status: Acute (8) Hyperglycemia Priority: Secondary Status: Acute (9) Protein calorie malnutrition Priority: Secondary Status: Acute Qualifiers: Protein-calorie malnutrition severity: severe Qualified Code(s): E43 - Unspecified severe protein-calorie malnutrition Hospital course: Ms. Kumar is a 68 year old female with a past medical history significant for COPD, stage III lung cancer, presented to the hospital after an episode of syncope. CT angiogram was done which was concerning for postobstructive pneumonia and acute pulmonary embolism. Patient was initially intubated and sedated because of hypoxia and respiratory failure. Patient continues to improve with antibiotics, treatment for the COPD and anticoagulation. She was then extubated. She remained stabilized within the hospital. Condition on 3 L of oxygen which her baseline requirement. Regarding her pneumonia, she got 6 d ays in the hospital, we will give her 3 more days of levofloxacin. Regarding her anticoagulation for pulmonary embolism, continue eliquis 10 mg twice a day for 6 more days and then switch to 5 mg by mouth twice a day, patient may need lifelong anticoagulation considering active cancer. Of note, her blood pressure was also elevated by history with an hospital, started on amlodipine and metoprolol to which she responded. Currently normotensive. Regarding her COPD exacerbation, she is to continue on her home inhalers, steroid taper ordered. SHe was also malnourished,encouraged to increase oral intake. Patient is being discharged to skilled facility for further management and rehabilitation. Discuss with significant other to make an appointment for an outpatient follow- up with oncology, possible PET scan. - Time Spent with Patient Total time spent providing and/or coordinating discharge services: 35 minutes - Discharge Medications Prescriptions: New Apixaban [Eliquis] 10 mg PO BID tablet Metoprolol [Lopressor] 50 mg PO BID tablet amLODIPine [Norvasc] 5 mg PO DAILY tablet Levofloxacin [Levaquin] 750 mg PO DAILY 3 Days #3 tablet Continued Folic Acid 1 mg PO DAILY Budesonide/Formoterol 160/4.5 [Symbicort 160/4.5] 2 puff IH BIDR Albuterol Sulfate [Ventolin Hfa] 2 inh IH Q6H PRN PRN Reason: SOB/WHEEZING Changed PredniSONE [Deltasone] See Taper PO DAILY #0 Home Medications: Albuterol Sulfate [Ventolin Hfa] 2 inh IH Q6H PRN 11/16/18 [History] Budesonide/Formoterol 160/4.5 [Symbicort 160/4.5] 2 puff IH BIDR 11/16/18 [History] Folic Acid 1 mg PO DAILY 11/16/18 [History] Apixaban [Eliquis] 10 mg PO BID tablet 11/22/18 [Rx] Levofloxacin [Levaquin] 750 mg PO DAILY 3 Days #3 tablet 11/22/18 [Rx] Metoprolol [Lopressor] 50 mg PO BID tablet 11/22/18 [Rx] PredniSONE [Deltasone] See Taper PO DAILY #0 11/22/18 [Rx] amLODIPine [Norvasc] 5 mg PO DAILY tablet 11/22/18 [Rx] Allergies/Adverse Reactions: Allergy/AdvReac Type Severity Reaction Status Date / Time No Known Allergies Allergy Verified 11/17/18 14:46 Date of admission: 11/16/18 13:27 Primary care physician: Jeff Dhillon MD Consults: 11/16/18 13:03 Consult to Pulmonology [CONS] Stat Consulting Provider: [facility] Reason for Consult: resp failure Time Notified: 13:03 Call Completed: Yes 11/16/18 17:10 Consult to Interpret Exam [CONS] Routine Consulting Provider: Dolores Do I Consult to Interpret Exam: Interpret EEG 11/17/18 10:43 Consult to Nutrition [CONS] Routine Comment: Consulting Provider: NUTRITION Reason for Dietary Consult: Tube Feed Start & Manage 11/17/18 12:36 Consult to Lotteries Agent [CONS] Routine Reason for SW Consult: Meet with daughter from out of state regarding POA. 11/19/18 13:27 Consult to Oncology [CONS] Routine Consulting Provider: On[facility] Reason for Consult: Update Patient and family on treatment plan, coordinate outpatient follow-up Call Completed: Yes 11/20/18 09:35 Consult to Occupational Therapy [CONS] Routine Comment: Evaluate, develop and implement POC Reason for Consult: SOB Phsyical decondiotioning Does patient have active BEDREST order?: No Is patient medically & hemodynamically stable?: Yes Consult to Physical Therapy [CONS] Routine Comment: Evaluate, develop and implement POC Reason for Consult: SOB Physcial deconditioning Does patient have active BEDREST order?: No Is patient medically & hemodynamically stable?: Yes - Constitutional Vitals: Temp Pulse Resp BP Pulse Ox 98.2 F 90 16 132/74 93 11/22/18 11:16 11/22/18 11:16 11/22/18 11:16 11/22/18 11:16 11/22/18 11:16 General appearance: Present: mild distress, A&O X 3 Exam: General: Alert and oriented, mild physical distress, able to follow commands. HEENT: No thyromegaly, no lymphadenopathy, no discharge. Eyes: No discharge. Normal conjuctiva, no icterus Respiratory: Normal vesicular breathing, no added sounds, breathing equal in both sides. CVS: Normal heart sounds, no murmurs, regular rhthm, no edema Extremities: No peripheral edema, peripheral pulses intact. Lymph nodes: No lymphadenopathy Gastrointestinal: Soft, nontender abdomen, normal abdominal sounds. No distention noted. Genitourinary: No paravertebral tenderness. Skin: No rash, ulcers or wound. Neurological: Alert and oriented. No focal deficits. Cranial nerves II-XII intact. - Patient Status Disposition: Transfer SNF Condition: Critical Overall status at discharge: patient is progressing back to baseline - Discharge Instructions Follow Up With: Jeff Dhillon MD [Primary Care Provider] - Geovanni Linn MD [Partnered Physician] - 11/23/18 9:00 am (Please follow up as schedule..) Forms: ED Satisfaction Letter - Diet and Activity Activity: increase activity as tolerated Diet: advance to your usual diet, low salt diet
--- NOTE | 2018-11-22 11:48 | Physician Discharge Referral ---
ExtendedCare Referral Info Provider in Charge after Transfer: PCP Institutional Level of Care: Skilled - Diagnosis (1) Acute pulmonary embolism Priority: Primary Status: Acute (2) Postobstructive pneumonia Priority: Secondary Status: Acute (3) Syncope Priority: Secondary Status: Acute (4) COPD (chronic obstructive pulmonary disease) Priority: Secondary Status: Acute (5) HTN (hypertension) Priority: Secondary Status: Acute (6) Lung cancer Priority: Secondary Status: Acute (7) Respiratory failure requiring intubation Priority: Secondary Status: Acute (8) Hyperglycemia Priority: Secondary Status: Acute (9) Protein calorie malnutrition Priority: Secondary Status: Acute - Transfer Medications Prescriptions: Levofloxacin [Levaquin] 750 mg PO DAILY 3 Days #3 tablet Home Medications: Albuterol Sulfate [Ventolin Hfa] 2 inh IH Q6H PRN 11/16/18 [History] Budesonide/Formoterol 160/4.5 [Symbicort 160/4.5] 2 puff IH BIDR 11/16/18 [History] Folic Acid 1 mg PO DAILY 11/16/18 [History] Apixaban [Eliquis] 10 mg PO BID tablet 11/22/18 [Rx] Levofloxacin [Levaquin] 750 mg PO DAILY 3 Days #3 tablet 11/22/18 [Rx] Metoprolol [Lopressor] 50 mg PO BID tablet 11/22/18 [Rx] PredniSONE [Deltasone] See Taper PO DAILY #0 11/22/18 [Rx] amLODIPine [Norvasc] 5 mg PO DAILY tablet 11/22/18 [Rx] Allergies/Adverse Reactions: Allergy/AdvReac Type Severity Reaction Status Date / Time No Known Allergies Allergy Verified 11/17/18 14:46 - Respiratory Orders Smoking Cessation: Smoking cessation has been advised. For more information, call the [place] Tobacco Quit Line at 1-223-YRJFNOW. CERTIFICATION: I certify that the transfer of the above named patient to an Extended Care Facility is necessary for the continuing treatment of the diagnosis listed. The above information is true and accurate reflection of patient's current condition. Confidential - Redisclosure prohibited without a patient's written consent.
== END 2018-11-22 14:30 | DRG 871 ==
LOC: EDBD → EMEROOARM 07:56 → SUATTDRO 13:27 → MERGE 13:27 → ICNU 13:27 → 2ANU 11-19 15:49
PROVIDERS: ADMIT Internal Medicine; ATTEND Internal Medicine

== ENCOUNTER 2018-11-23 10:53 | Inpatient (IN) ==
[2018-11-23] MEDS ORDERED: Ipratropium/Albuterol Neb 3 ML IH ONE (10:59)
[2018-11-23] MEDS ORDERED: 0.9 % Sodium Chloride 1,000 ML IVC ONE (10:59)
[2018-11-23 12:13] LABS: Mean Corpuscular Hemoglobin 25.3 pg (28.0-33.3); Red Cell Distribution Width 15.9 % (11.5-14.5)
[2018-11-23 12:23] LABS: Hemoglobin 11.6 g/dL (11.5-15.4); Mean Corpuscular HGB Conc 29.7 g/dL (31.6-35.5); Platelet Count 182 K/mcL (140-400); Red Blood Count 4.59 M/mcL (3.82-4.97)
[2018-11-23 12:26] LABS: White Blood Count 39.1 K/mcL (4.3-11.1)
[2018-11-23] MEDS ORDERED: Piperacillin/Tazobactam 3.375 GM in 0.9 % Sodium Chloride Mini Bag 100 ML IVPB ONE (12:33)
[2018-11-23 12:48] LABS: BUN/Creatinine Ratio 31 (6-26); Blood Urea Nitrogen 19 mg/dL (8-23); Carbon Dioxide 33 mEq/L (23-29); Chloride 100 mEq/L (98-107); Glucose 97 mg/dL (70-105); Osmolality,Calculated 292 (280-300); Potassium 4.5 mEq/L (3.5-5.1); Sodium 140 mEq/L (136-145); eGFR For African Americans > 60 (> 60); eGFR For Non-African Americans > 60 (> 60)
[2018-11-23 13:00] LABS: Eosinophils # 0.4 K/mcL (0.0-0.6); Lymphocytes # 0.8 K/mcL (0.6-4.6); Monocytes # 1.2 K/mcL (0.0-1.3); Neutrophils # 36.8 K/mcL (1.6-8.9); Platelet Estimate Normal (Normal)
[2018-11-23] MEDS ORDERED: methylPREDNISolone 125 MG/2 ML VIAL IVP ONE (13:29)
[2018-11-23] MEDS ORDERED: Ondansetron 4 MG/2 ML VIAL IVP PRN (14:38)
[2018-11-23] MEDS ORDERED: Naloxone 0.4 MG/ML INJ IVP PRN (14:38)
[2018-11-23] MEDS ORDERED: Acetaminophen 325 MG TABLET PO PRN (14:38)
[2018-11-23] MEDS ORDERED: *HR* HYDROcodone/Acet 5/325 mg TABLET PO PRN (14:38)
[2018-11-23] MEDS ORDERED: *HR* OxyCODONE Immed Rel 5 MG TABLET PO PRN ×2 (14:38→16:57)
[2018-11-23] MEDS ORDERED: Ipratropium/Albuterol Neb 3 ML IH PRN (16:23)
[2018-11-23] MEDS ORDERED: *HR* LORazepam 0.5 MG TABLET PO ONE (17:20)
[2018-11-23] MEDS ORDERED: *HR* OxyCODONE Immed Rel 5 MG TABLET PO SCH (18:00)
[2018-11-23 18:03] LABS: Bilirubin,Urine Negative (Negative); Blood,Urine Negative (Negative); Clarity,Urine Clear (Clear); Color,Urine Yellow (Yellow); Glucose,Urine (UA) Normal (Normal); Ketones,Urine Negative (Negative); Leukocyte Esterase,Urine Negative (Negative); Nitrite,Urine Negative (Negative); PH,Urine 6.5 pH Units (5.0-8.0); Protein,Urine Trace mg/dL (Neg-Trace); Specific Gravity,Urine 1.023 (1.010-1.025); Urobilinogen,Urine Normal (Normal)
[2018-11-23] MEDS: Apixaban 5 MG TABLET PO SCH (21:41)
[2018-11-23] MEDS: Piperacillin/Tazobactam 3.375 GM in 0.9 % Sodium Chloride Mini Bag 100 ML IVPB SCH (21:41)
[2018-11-23] MEDS: *HR* LORazepam 0.5 MG TABLET PO SCH (21:41)
[2018-11-23] MEDS: Budesonide/Formoterol 160/4.5 1 PUFF INH IH SCH (21:46)
[2018-11-23] MEDS: Ipratropium/Albuterol Neb 3 ML IH SCH (21:46)
[2018-11-24 04:09] LABS: Basophils % 0.1 %; Hematocrit 37.7 % (35.3-44.9); Hemoglobin 11.1 g/dL (11.5-15.4); Immature Granulocytes % 1.8 % (0-4); Lymphocytes # 0.4 K/mcL (0.6-4.6); Lymphocytes % 1.8 %; Mean Corpuscular HGB Conc 29.4 g/dL (31.6-35.5); Mean Corpuscular Hemoglobin 25.5 pg (28.0-33.3); Mean Corpuscular Volume 86.5 fL (83.0-100.0); Mean Platelet Volume 11.6 fL (9.4-12.4); Monocytes # 0.6 K/mcL (0.0-1.3); Monocytes % 2.7 %; Neutrophils # 19.1 K/mcL (1.6-8.9); Platelet Count 149 K/mcL (140-400); Red Blood Count 4.36 M/mcL (3.82-4.97); Red Cell Distribution Width 15.6 % (11.5-14.5); Segmented Neutrophils % 93.6 %; White Blood Count 20.4 K/mcL (4.3-11.1)
[2018-11-24 04:20] LABS: Acinetobacter baumannii by PCR Not Detected (Not Detect); Candida albicans by PCR Not Detected (Not Detect); Candida glabrata by PCR Not Detected (Not Detect); Candida krusei by PCR Not Detected (Not Detect); Candida parapsilosis by PCR Not Detected (Not Detect); Candida tropicalis by PCR Not Detected (Not Detect); Enterobacter cloacae Cmplx PCR Not Detected (Not Detect); Enterobacteriaceae by PCR Not Detected (Not Detect); Enterococcus by PCR Not Detected (Not Detect); Escherichia coli by PCR Not Detected (Not Detect); Klebsiella oxytoca by PCR Not Detected (Not Detect); Klebsiella pneumoniae by PCR Not Detected (Not Detect); Proteus by PCR Not Detected (Not Detect); Pseudomonas aeruginosa by PCR Not Detected (Not Detect); Serratia marcescens by PCR Not Detected (Not Detect); Staphylococcus aureus by PCR Not Detected (Not Detect); Staphylococcus by PCR Not Detected (Not Detect); Streptococcus agalactiae(B)PCR Not Detected (Not Detect); Streptococcus by PCR Not Detected (Not Detect); Streptococcus pneumoniae PCR Not Detected (Not Detect); Streptococcus pyogenes (A) PCR Not Detected (Not Detect); blaKPC Carbapenem-Resist Gene Not Detected (Not Detect); mecA Methicillin-Resist Gene Not Detected (Not Detect); vanA/B Vancomycin-Resist Genes Not Detected (Not Detect)
[2018-11-24] MEDS: Ipratropium/Albuterol Neb 3 ML IH SCH ×4 (04:29→22:31)
[2018-11-24 04:30] LABS: BUN/Creatinine Ratio 32 (6-26); Blood Urea Nitrogen 19 mg/dL (8-23); Calcium 8.7 mg/dL (8.6-10.3); Carbon Dioxide 31 mEq/L (23-29); Chloride 103 mEq/L (98-107); Glucose 125 mg/dL (70-105); Magnesium 2.1 mg/dL (1.6-2.6); Osmolality,Calculated 290 (280-300); Potassium 4.4 mEq/L (3.5-5.1); Sodium 138 mEq/L (136-145); eGFR For African Americans > 60 (> 60); eGFR For Non-African Americans > 60 (> 60)
[2018-11-24] MEDS: Piperacillin/Tazobactam 3.375 GM in 0.9 % Sodium Chloride Mini Bag 100 ML IVPB SCH ×3 (05:38→20:33)
[2018-11-24 07:19] LABS: Adenovirus Not Detected (Not Detect); Bordetella Pertussis Not Detected (Not Detect); Chlamydophila pneumoniae Not Detected (Not Detect); Coronavirus 229E Not Detected (Not Detect); Coronavirus HKU1 Not Detected (Not Detect); Coronavirus NL63 Not Detected (Not Detect); Coronavirus OC43 Not Detected (Not Detect); Human Metapneumovirus Not Detected (Not Detect); Human Rhinovirus/Enterovirus Not Detected (Not Detect); Influenza A Subtype 2009 H1 Not Detected (Not Detect); Influenza A Untypeable Not Detected (Not Detect); Influenza B Not Detected (Not Detect); Mycoplasma pneumoniae Not Detected (Not Detect); Parainfluenza Virus 1 Not Detected (Not Detect); Parainfluenza Virus 2 Not Detected (Not Detect); Parainfluenza Virus 3 Not Detected (Not Detect); Parainfluenza Virus 4 Not Detected (Not Detect); Respiratory Syncytial Virus Not Detected (Not Detect)
[2018-11-24] MEDS: *HR* LORazepam 0.5 MG TABLET PO SCH (08:27)
[2018-11-24] MEDS: Apixaban 5 MG TABLET PO SCH ×2 (08:27→20:58)
[2018-11-24] MEDS: Folic Acid 1 MG TABLET PO SCH (08:27)
[2018-11-24] MEDS: MethylPREDNISolone 40 MG/ML VIAL IVP SCH ×2 (08:27→20:32)
[2018-11-24] MEDS: Budesonide/Formoterol 160/4.5 1 PUFF INH IH SCH ×2 (10:53→22:30)
[2018-11-24] MEDS: *HR* LORazepam 0.5 MG TABLET PO ONE ×2 (11:59→12:05)
[2018-11-24] MEDS ORDERED: Albuterol 2.5 MG/3 ML NEBULIZER IH PRN (12:03)
[2018-11-24] MEDS: *HR* LORazepam 0.5 MG TABLET PO PRN (20:32)
[2018-11-25] MEDS: Ipratropium/Albuterol Neb 3 ML IH SCH ×4 (04:01→22:02)
[2018-11-25] MEDS: Piperacillin/Tazobactam 3.375 GM in 0.9 % Sodium Chloride Mini Bag 100 ML IVPB SCH ×3 (04:34→20:17)
[2018-11-25 05:22] LABS: Basophils % 0.1 %; Hematocrit 34.7 % (35.3-44.9); Hemoglobin 10.4 g/dL (11.5-15.4); Immature Granulocytes % 0.7 % (0-4); Lymphocytes # 0.3 K/mcL (0.6-4.6); Lymphocytes % 1.9 %; Mean Corpuscular Hemoglobin 25.8 pg (28.0-33.3); Mean Corpuscular Volume 86.1 fL (83.0-100.0); Mean Platelet Volume 12.4 fL (9.4-12.4); Monocytes # 0.3 K/mcL (0.0-1.3); Monocytes % 2.3 %; Neutrophils # 14.3 K/mcL (1.6-8.9); Platelet Count 178 K/mcL (140-400); Red Blood Count 4.03 M/mcL (3.82-4.97); Red Cell Distribution Width 15.8 % (11.5-14.5)
[2018-11-25 05:40] LABS: BUN/Creatinine Ratio 31 (6-26); Blood Urea Nitrogen 18 mg/dL (8-23); Calcium 8.6 mg/dL (8.6-10.3); Carbon Dioxide 32 mEq/L (23-29); Chloride 104 mEq/L (98-107); Glucose 131 mg/dL (70-105); Osmolality,Calculated 294 (280-300); Potassium 4.2 mEq/L (3.5-5.1); Sodium 140 mEq/L (136-145); eGFR For African Americans > 60 (> 60); eGFR For Non-African Americans > 60 (> 60)
[2018-11-25] MEDS: Folic Acid 1 MG TABLET PO SCH (07:58)
[2018-11-25] MEDS: MethylPREDNISolone 40 MG/ML VIAL IVP SCH (07:58)
[2018-11-25] MEDS: Apixaban 5 MG TABLET PO SCH ×2 (07:59→20:16)
[2018-11-25] MEDS: Budesonide/Formoterol 160/4.5 1 PUFF INH IH SCH ×2 (09:36→22:01)
[2018-11-25] MEDS: *HR* LORazepam 0.5 MG TABLET PO PRN (10:26)
[2018-11-26] MEDS: Ipratropium/Albuterol Neb 3 ML IH SCH ×4 (04:15→23:14)
[2018-11-26] MEDS: Piperacillin/Tazobactam 3.375 GM in 0.9 % Sodium Chloride Mini Bag 100 ML IVPB SCH (05:42)
[2018-11-26] MEDS ORDERED: Aminoglycoside Consult 1 EACH MC ONE (07:47)
[2018-11-26] MEDS: Apixaban 5 MG TABLET PO SCH ×2 (09:00→20:50)
[2018-11-26] MEDS ORDERED: MethylPREDNISolone 40 MG/ML VIAL IVP SCH (09:00)
[2018-11-26] MEDS: Folic Acid 1 MG TABLET PO SCH (09:01)
[2018-11-26 09:26] LABS: Basophils % 0.1 %; Eosinophils # 0.1 K/mcL (0.0-0.6); Eosinophils % 1.3 %; Hematocrit 36.9 % (35.3-44.9); Hemoglobin 10.9 g/dL (11.5-15.4); Immature Granulocytes % 0.5 % (0-4); Lymphocytes # 0.8 K/mcL (0.6-4.6); Lymphocytes % 7.4 %; Mean Corpuscular HGB Conc 29.5 g/dL (31.6-35.5); Mean Corpuscular Hemoglobin 25.7 pg (28.0-33.3); Mean Platelet Volume 12.3 fL (9.4-12.4); Monocytes # 0.8 K/mcL (0.0-1.3); Neutrophils # 9.4 K/mcL (1.6-8.9); Platelet Count 222 K/mcL (140-400); Red Blood Count 4.24 M/mcL (3.82-4.97); Red Cell Distribution Width 16.1 % (11.5-14.5); Segmented Neutrophils % 83.7 %; White Blood Count 11.2 K/mcL (4.3-11.1)
[2018-11-26] MEDS: Budesonide/Formoterol 160/4.5 1 PUFF INH IH SCH ×2 (09:57→19:56)
[2018-11-26 10:32] LABS: BUN/Creatinine Ratio 23 (6-26); Blood Urea Nitrogen 16 mg/dL (8-23); Calcium 8.7 mg/dL (8.6-10.3); Carbon Dioxide 32 mEq/L (23-29); Chloride 104 mEq/L (98-107); Glucose 99 mg/dL (70-105); Osmolality,Calculated 287 (280-300); Potassium 3.7 mEq/L (3.5-5.1); Sodium 138 mEq/L (136-145); eGFR For African Americans > 60 (> 60); eGFR For Non-African Americans > 60 (> 60)
[2018-11-26] MEDS: levoFLOXacin 750 MG TABLET PO SCH (12:09)
[2018-11-27 02:46] LABS: Basophils % 0.1 %; Eosinophils % 0.4 %; Hematocrit 33.8 % (35.3-44.9); Hemoglobin 10.1 g/dL (11.5-15.4); Immature Granulocytes % 0.6 % (0-4); Lymphocytes # 0.8 K/mcL (0.6-4.6); Lymphocytes % 7.1 %; Mean Corpuscular HGB Conc 29.9 g/dL (31.6-35.5); Mean Corpuscular Hemoglobin 25.3 pg (28.0-33.3); Mean Corpuscular Volume 84.7 fL (83.0-100.0); Mean Platelet Volume 12.1 fL (9.4-12.4); Monocytes # 0.9 K/mcL (0.0-1.3); Monocytes % 8.2 %; Neutrophils # 9.5 K/mcL (1.6-8.9); Platelet Count 224 K/mcL (140-400); Red Blood Count 3.99 M/mcL (3.82-4.97); Red Cell Distribution Width 15.9 % (11.5-14.5); Segmented Neutrophils % 83.6 %; White Blood Count 11.3 K/mcL (4.3-11.1)
[2018-11-27] MEDS: Ipratropium/Albuterol Neb 3 ML IH SCH ×4 (03:38→21:58)
[2018-11-27] MEDS: *HR* LORazepam 0.5 MG TABLET PO PRN ×3 (03:56→23:22)
[2018-11-27] MEDS: predniSONE 20 MG TABLET PO SCH (08:47)
[2018-11-27] MEDS: levoFLOXacin 750 MG TABLET PO SCH (08:48)
[2018-11-27] MEDS: Folic Acid 1 MG TABLET PO SCH (08:48)
[2018-11-27] MEDS: Apixaban 5 MG TABLET PO SCH ×2 (08:48→20:27)
[2018-11-27] MEDS: Budesonide/Formoterol 160/4.5 1 PUFF INH IH SCH ×2 (09:37→20:03)
[2018-11-28] MEDS: Ipratropium/Albuterol Neb 3 ML IH SCH ×4 (04:31→21:15)
[2018-11-28] MEDS: levoFLOXacin 750 MG TABLET PO SCH (08:38)
[2018-11-28] MEDS: predniSONE 20 MG TABLET PO SCH (08:38)
[2018-11-28] MEDS: Folic Acid 1 MG TABLET PO SCH (08:38)
[2018-11-28] MEDS: Apixaban 5 MG TABLET PO SCH ×2 (08:38→19:48)
[2018-11-28] MEDS: Budesonide/Formoterol 160/4.5 1 PUFF INH IH SCH ×2 (10:01→21:15)
[2018-11-28] MEDS: *HR* LORazepam 0.5 MG TABLET PO PRN (19:48)
[2018-11-29] MEDS: Ipratropium/Albuterol Neb 3 ML IH SCH ×4 (03:53→22:18)
[2018-11-29] MEDS: Apixaban 5 MG TABLET PO SCH ×2 (08:17→20:03)
[2018-11-29] MEDS: Folic Acid 1 MG TABLET PO SCH (08:17)
[2018-11-29] MEDS: predniSONE 20 MG TABLET PO SCH (08:17)
[2018-11-29] MEDS: Budesonide/Formoterol 160/4.5 1 PUFF INH IH SCH ×2 (09:48→22:17)
[2018-11-29] MEDS: *HR* LORazepam 0.5 MG TABLET PO PRN (20:03)
[2018-11-30] MEDS: Ipratropium/Albuterol Neb 3 ML IH SCH ×3 (03:51→15:34)
[2018-11-30] MEDS ORDERED: predniSONE 10 MG TABLET PO SCH (09:33)
[2018-11-30] MEDS: Folic Acid 1 MG TABLET PO SCH (09:37)
[2018-11-30] MEDS: Apixaban 5 MG TABLET PO SCH (09:37)
[2018-11-30] MEDS: predniSONE 20 MG TABLET PO SCH (09:43)
[2018-11-30] MEDS: Budesonide/Formoterol 160/4.5 1 PUFF INH IH SCH (10:52)
[2018-11-30 17:20] VITALS: BP 114/69
== END 2018-11-30 17:48 | disposition home or self-care (01) | DRG 193 ==
LOC: 2ANU 10:53 → EMEROOARM 10:53 → 2ANU 14:16 → SUATTDRO 14:38 → 2ANU 15:12
PROVIDERS: ADMIT Internal Medicine; ATTEND Internal Medicine

== ENCOUNTER 2019-01-16 11:07 | Inpatient (IN) ==
[2019-01-16] MEDS ORDERED: Albuterol 2.5 MG/3 ML NEBULIZER IH ONE (11:24)
[2019-01-16] MEDS ORDERED: Sodium Bicarbonate 50 MEQ/50 ML VIAL IVP ONE (11:24)
[2019-01-16] MEDS ORDERED: Calcium Chloride 1,000 MG in 0.9 % Sodium Chloride 100 ML IVPB ONE (12:05)
[2019-01-16 12:53] LABS: Creatine Kinase < 10 Units/L (30-223); Phosphorous 6.4 mg/dL (2.7-4.5); Uric Acid 12.3 mg/dL (2.3-7.6)
[2019-01-16] MEDS ORDERED: 0.9 % Sodium Chloride 1,000 ML IVC ONE (13:49)
[2019-01-16 14:05] LABS: Basophils % 0.3 %; Hematocrit 25.6 % (35.3-44.9); Hemoglobin 8.3 g/dL (11.5-15.4); Immature Granulocytes % 2.9 % (0-4); Lymphocytes # 0.3 K/mcL (0.6-4.6); Lymphocytes % 7.5 %; Mean Corpuscular HGB Conc 32.4 g/dL (31.6-35.5); Mean Corpuscular Hemoglobin 26.8 pg (28.0-33.3); Mean Corpuscular Volume 82.6 fL (83.0-100.0); Mean Platelet Volume 10.6 fL (9.4-12.4); Monocytes # 0.1 K/mcL (0.0-1.3); Monocytes % 1.8 %; Neutrophils # 3.4 K/mcL (1.6-8.9); Platelet Count 276 K/mcL (140-400); Red Cell Distribution Width 17.2 % (11.5-14.5); Segmented Neutrophils % 87.5 %; White Blood Count 3.9 K/mcL (4.3-11.1)
[2019-01-16 14:11] LABS: Blood Urea Nitrogen > 130 mg/dL (8-23); Calcium 8.7 mg/dL (8.6-10.3); Carbon Dioxide 21 mEq/L (23-29); Chloride 99 mEq/L (98-107); Glucose 133 mg/dL (70-105); Potassium 7.1 mEq/L (3.5-5.1); Sodium 133 mEq/L (136-145); eGFR For African Americans 5 (> 60); eGFR For Non-African Americans 4 (> 60)
[2019-01-16] MEDS ORDERED: Insulin Human Regular 10 UNIT in 0.9 % Sodium Chloride 10 ML IV ONE (14:19)
[2019-01-16] MEDS ORDERED: *HR* Dextrose 50 % in Water (Syg) 50 ML SYRINGE IVP ONE (14:19)
[2019-01-16] MEDS ORDERED: *HR* Dextrose 50 % in Water (Syg) 50 ML SYRINGE ONE (14:49)
[2019-01-16 14:59] LABS: Lactate Dehydrogenase 207 Units/L (140-271)
[2019-01-16] MEDS ORDERED: *HR* Heparin 10,000 UNIT/10 ML VIAL IV PRN (15:07)
[2019-01-16] MEDS ORDERED: 0.9 % Sodium Chloride 250 ML IVC PRN (15:07)
[2019-01-16] MEDS ORDERED: 0.9 % Sodium Chloride 1,000 ML PRIME SCH (15:15)
[2019-01-16] MEDS ORDERED: *HR* Heparin 5,000 UNIT/ML VIAL ONE (15:29)
[2019-01-16] MEDS ORDERED: *HR* Promethazine 25 MG/ML VIAL IVP PRN (15:48)
[2019-01-16] MEDS ORDERED: Acetaminophen 325 MG TABLET PO PRN (15:48)
[2019-01-16] MEDS ORDERED: Naloxone 0.4 MG/ML INJ IVP PRN (15:48)
[2019-01-16] MEDS ORDERED: MOM Conc 10 ML UD.LIQ PO PRN (15:48)
[2019-01-16 15:49] LABS: Hepatitis B Surface Antibody < 3.10 mIU/mL
[2019-01-16] MEDS ORDERED: *HR* Heparin 5,000 UNIT/ML VIAL IVP ONE (15:53)
[2019-01-16] MEDS ORDERED: *HR* Heparin 5,000 UNIT/ML VIAL IVP PRN ×2 (15:53)
[2019-01-16] MEDS ORDERED: Heparin 25,000 UNIT/250 ML D5W 25,000 UNIT/250 ML IV.SOLN IVC SCH (16:00)
[2019-01-16] MEDS ORDERED: *HR* Heparin 5,000 UNIT/ML VIAL SQ SCH (16:00)
[2019-01-16 16:01] LABS: Hepatitis B Surface Antigen Nonreactive (Nonreactive)
[2019-01-16 16:30] LABS: Hepatitis B Core IgM Nonreactive (Nonreactive)
[2019-01-16 18:02] LABS: Hematocrit 22.4 % (35.3-44.9); Hemoglobin 7.2 g/dL (11.5-15.4); INR 2.3; Mean Corpuscular HGB Conc 32.1 g/dL (31.6-35.5); Mean Corpuscular Hemoglobin 26.4 pg (28.0-33.3); Mean Corpuscular Volume 82.1 fL (83.0-100.0); Mean Platelet Volume 9.9 fL (9.4-12.4); Platelet Count 250 K/mcL (140-400); Prothrombin Time 26.4 Seconds (9.4-12.1); Red Blood Count 2.73 M/mcL (3.82-4.97); Red Cell Distribution Width 17.3 % (11.5-14.5); White Blood Count 3.7 K/mcL (4.3-11.1)
[2019-01-16 18:10] LABS: Heparin anti-factor XA UFH > 2.00 IU/mL (0.30-0.70)
[2019-01-16] MEDS: *HR* HYDROcodone/Acet 5/325 mg TABLET PO PRN (21:27)
[2019-01-16 21:35] LABS: Hematocrit 22.1 % (35.3-44.9); Hemoglobin 7.2 g/dL (11.5-15.4); Mean Corpuscular HGB Conc 32.6 g/dL (31.6-35.5); Mean Corpuscular Hemoglobin 27.5 pg (28.0-33.3); Mean Corpuscular Volume 84.4 fL (83.0-100.0); Mean Platelet Volume 9.7 fL (9.4-12.4); Platelet Count 244 K/mcL (140-400); Red Blood Count 2.62 M/mcL (3.82-4.97); Red Cell Distribution Width 16.9 % (11.5-14.5); White Blood Count 4.9 K/mcL (4.3-11.1)
[2019-01-16] MEDS ORDERED: Rasburicase 10 MG in 0.9 % Sodium Chloride 50 ML IVPB ONE (21:45)
[2019-01-16 21:58] LABS: Calcium 8.2 mg/dL (8.6-10.3); Potassium 3.8 mEq/L (3.5-5.1)
[2019-01-16 22:05] LABS: Albumin 2.3 g/dL (3.5-5.7)
[2019-01-16] MEDS: Budesonide/Formoterol 160/4.5 1 PUFF INH IH SCH (22:25)
[2019-01-16] MEDS ORDERED: 0.9 % Sodium Chloride 250 ML ONE (23:01)
[2019-01-17 03:02] LABS: Hematocrit 21.2 % (35.3-44.9); Hemoglobin 6.9 g/dL (11.5-15.4); Mean Corpuscular HGB Conc 32.5 g/dL (31.6-35.5); Mean Corpuscular Hemoglobin 27.3 pg (28.0-33.3); Mean Corpuscular Volume 83.8 fL (83.0-100.0); Mean Platelet Volume 9.6 fL (9.4-12.4); Platelet Count 237 K/mcL (140-400); Red Blood Count 2.53 M/mcL (3.82-4.97); Red Cell Distribution Width 17.2 % (11.5-14.5); White Blood Count 5.2 K/mcL (4.3-11.1)
[2019-01-17 03:32] LABS: Magnesium 1.7 mg/dL (1.6-2.6); Potassium 4.1 mEq/L (3.5-5.1)
[2019-01-17] MEDS ORDERED: 0.9 % Sodium Chloride 250 ML IVC SCH (03:45)
[2019-01-17] MEDS: *HR* LORazepam 0.5 MG TABLET PO PRN (05:59)
[2019-01-17] MEDS: Budesonide/Formoterol 160/4.5 1 PUFF INH IH SCH ×2 (07:44→19:44)
[2019-01-17] MEDS: Folic Acid 1 MG TABLET PO SCH (08:11)
[2019-01-17] MEDS: Apixaban 5 MG TABLET PO SCH ×2 (08:59→20:56)
[2019-01-17] MEDS: *HR* HYDROcodone/Acet 5/325 mg TABLET PO PRN ×2 (09:36→16:55)
[2019-01-17] MEDS ORDERED: 0.9 % Sodium Chloride 250 ML IVC PRN (10:52)
[2019-01-17] MEDS ORDERED: *HR* Heparin 10,000 UNIT/10 ML VIAL IV PRN (10:52)
[2019-01-17] MEDS ORDERED: 0.9 % Sodium Chloride 1,000 ML PRIME SCH (11:00)
[2019-01-17 11:43] LABS: Albumin 2.1 g/dL (3.5-5.7); BUN/Creatinine Ratio 12 (6-26); Blood Urea Nitrogen 56 mg/dL (8-23); Calcium 7.9 mg/dL (8.6-10.3); Carbon Dioxide 31 mEq/L (23-29); Chloride 101 mEq/L (98-107); Glucose 90 mg/dL (70-105); Osmolality,Calculated 301 (280-300); Phosphorous 5.5 mg/dL (2.7-4.5); Potassium 4.3 mEq/L (3.5-5.1); Sodium 138 mEq/L (136-145); Uric Acid < 1.5 mg/dL (2.3-7.6); eGFR For African Americans 11 (> 60); eGFR For Non-African Americans 9 (> 60)
[2019-01-17 17:46] LABS: Hematocrit 27.4 % (35.3-44.9)
[2019-01-18] MEDS: *HR* HYDROcodone/Acet 5/325 mg TABLET PO PRN ×3 (02:05→16:18)
[2019-01-18 04:46] LABS: Basophils % 0.2 %; Hematocrit 25.4 % (35.3-44.9); Hemoglobin 8.3 g/dL (11.5-15.4); Immature Granulocytes % 1.2 % (0-4); Lymphocytes # 0.3 K/mcL (0.6-4.6); Lymphocytes % 5.1 %; Mean Corpuscular HGB Conc 32.7 g/dL (31.6-35.5); Mean Corpuscular Hemoglobin 27.9 pg (28.0-33.3); Mean Corpuscular Volume 85.2 fL (83.0-100.0); Mean Platelet Volume 9.7 fL (9.4-12.4); Monocytes # 0.6 K/mcL (0.0-1.3); Monocytes % 9.4 %; Neutrophils # 5.4 K/mcL (1.6-8.9); Platelet Count 193 K/mcL (140-400); Red Blood Count 2.98 M/mcL (3.82-4.97); Red Cell Distribution Width 16.8 % (11.5-14.5); Segmented Neutrophils % 84.1 %; White Blood Count 6.5 K/mcL (4.3-11.1)
[2019-01-18 05:07] LABS: BUN/Creatinine Ratio 9 (6-26); Blood Urea Nitrogen 24 mg/dL (8-23); Calcium 7.8 mg/dL (8.6-10.3); Carbon Dioxide 29 mEq/L (23-29); Chloride 101 mEq/L (98-107); Glucose 81 mg/dL (70-105); Magnesium 1.6 mg/dL (1.6-2.6); Osmolality,Calculated 287 (280-300); Phosphorous 3.3 mg/dL (2.7-4.5); Sodium 137 mEq/L (136-145); Uric Acid < 1.5 mg/dL (2.3-7.6); eGFR For African Americans 21 (> 60); eGFR For Non-African Americans 18 (> 60)
[2019-01-18] MEDS: Apixaban 5 MG TABLET PO SCH ×2 (07:29→21:26)
[2019-01-18] MEDS: Folic Acid 1 MG TABLET PO SCH (07:30)
[2019-01-18] MEDS: 0.9 % Sodium Chloride 1,000 ML IVC SCH ×2 (11:29→19:23)
[2019-01-18] MEDS: Budesonide/Formoterol 160/4.5 1 PUFF INH IH SCH ×2 (11:39→20:14)
[2019-01-18] MEDS: *HR* LORazepam 0.5 MG TABLET PO PRN (22:17)
[2019-01-19] MEDS ORDERED: *HR* Metoprolol 5 MG/5 ML VIAL IVP ONE (00:06)
[2019-01-19] MEDS: 0.9 % Sodium Chloride 1,000 ML IVC SCH ×4 (03:05→21:49)
[2019-01-19] MEDS: *HR* HYDROcodone/Acet 5/325 mg TABLET PO PRN ×3 (03:08→21:49)
[2019-01-19 04:13] LABS: Basophils % 0.2 %; Hematocrit 25.8 % (35.3-44.9); Immature Granulocytes % 1.2 % (0-4); Lymphocytes # 0.3 K/mcL (0.6-4.6); Lymphocytes % 3.7 %; Mean Corpuscular Hemoglobin 27.5 pg (28.0-33.3); Mean Corpuscular Volume 88.7 fL (83.0-100.0); Mean Platelet Volume 10.2 fL (9.4-12.4); Monocytes # 0.6 K/mcL (0.0-1.3); Monocytes % 6.5 %; Neutrophils # 7.9 K/mcL (1.6-8.9); Platelet Count 156 K/mcL (140-400); Red Blood Count 2.91 M/mcL (3.82-4.97); Red Cell Distribution Width 16.9 % (11.5-14.5); Segmented Neutrophils % 88.4 %; White Blood Count 8.9 K/mcL (4.3-11.1)
[2019-01-19 04:19] LABS: BUN/Creatinine Ratio 9 (6-26); Blood Urea Nitrogen 33 mg/dL (8-23); Calcium 7.7 mg/dL (8.6-10.3); Carbon Dioxide 24 mEq/L (23-29); Chloride 104 mEq/L (98-107); Creatine Kinase < 10 Units/L (30-223); Glucose 81 mg/dL (70-105); Osmolality,Calculated 286 (280-300); Sodium 135 mEq/L (136-145); eGFR For African Americans 16 (> 60); eGFR For Non-African Americans 13 (> 60)
[2019-01-19 04:54] LABS: Magnesium 1.9 mg/dL (1.6-2.6); Phosphorous 3.9 mg/dL (2.7-4.5); Uric Acid < 1.5 mg/dL (2.3-7.6)
[2019-01-19] MEDS: Budesonide/Formoterol 160/4.5 1 PUFF INH IH SCH ×2 (07:10→20:09)
[2019-01-19] MEDS ORDERED: 0.9 % Sodium Chloride 250 ML IVC PRN (07:58)
[2019-01-19] MEDS: Apixaban 5 MG TABLET PO SCH ×2 (08:29→21:48)
[2019-01-19] MEDS: Folic Acid 1 MG TABLET PO SCH (08:29)
[2019-01-19] MEDS ORDERED: Calcium Gluconate 1,000 MG/10 ML VIAL IVPB STA (14:46)
[2019-01-19] MEDS ORDERED: Calcium Gluconate 1gm/50mL 1 GM/50 ML BAG IVPB ONE (15:30)
[2019-01-19] MEDS: *HR* LORazepam 0.5 MG TABLET PO PRN (21:49)
[2019-01-20 01:45] LABS: ABG Base Excess 2 mEq/L (-2 to 3); ABG HCO3 27 mEq/L (21-27); ABG Oxygen Saturation 96 % (95-98); ABG PCO2 45 mmHg (35-45); ABG PH 7.39 pH Units (7.32-7.45); ABG PO2 84 mmHg (85-104); ABG TCO2 29 mEq/L (20-26)
[2019-01-20] MEDS: 0.9 % Sodium Chloride 1,000 ML IVC SCH (04:43)
[2019-01-20 05:22] LABS: Hematocrit 25.6 % (35.3-44.9); Hemoglobin 8.1 g/dL (11.5-15.4); Mean Corpuscular HGB Conc 31.6 g/dL (31.6-35.5); Mean Corpuscular Hemoglobin 27.6 pg (28.0-33.3); Mean Corpuscular Volume 87.1 fL (83.0-100.0); Mean Platelet Volume 9.9 fL (9.4-12.4); Platelet Count 140 K/mcL (140-400); Red Blood Count 2.94 M/mcL (3.82-4.97); White Blood Count 8.4 K/mcL (4.3-11.1)
[2019-01-20 05:46] LABS: Albumin 2.1 g/dL (3.5-5.7); Calcium 7.5 mg/dL (8.6-10.3); Magnesium 1.6 mg/dL (1.6-2.6); Potassium 3.6 mEq/L (3.5-5.1)
[2019-01-20] MEDS: Budesonide/Formoterol 160/4.5 1 PUFF INH IH SCH ×2 (07:41→21:58)
[2019-01-20] MEDS: Folic Acid 1 MG TABLET PO SCH (08:56)
[2019-01-20] MEDS: Apixaban 5 MG TABLET PO SCH ×2 (08:56→20:46)
[2019-01-20] MEDS ORDERED: Saline Nasal Spray 44 ML BOTTLE NS PRN (18:06)
[2019-01-20] MEDS ORDERED: Furosemide 20 MG/2 ML VIAL IVP ONE (18:31)
[2019-01-20] MEDS: *HR* LORazepam 0.5 MG TABLET PO PRN (20:46)
[2019-01-21] MEDS: Budesonide/Formoterol 160/4.5 1 PUFF INH IH SCH ×2 (07:26→20:08)
[2019-01-21] MEDS: Folic Acid 1 MG TABLET PO SCH (09:43)
[2019-01-21] MEDS: Apixaban 5 MG TABLET PO SCH ×2 (09:44→21:52)
[2019-01-21 13:20] LABS: Calcium 7.8 mg/dL (8.6-10.3); Phosphorous 3.4 mg/dL (2.7-4.5); Potassium 3.4 mEq/L (3.5-5.1)
[2019-01-21] MEDS: *HR* LORazepam 0.5 MG TABLET PO PRN (18:21)
[2019-01-21] MEDS: *HR* HYDROcodone/Acet 5/325 mg TABLET PO PRN (18:21)
[2019-01-22] MEDS: *HR* LORazepam 0.5 MG TABLET PO PRN (00:23)
[2019-01-22] MEDS ORDERED: Levalbuterol Neb 1.25 MG/3 ML IH ONE (00:33)
[2019-01-22 04:47] LABS: Hematocrit 25.4 % (35.3-44.9); Mean Corpuscular HGB Conc 31.5 g/dL (31.6-35.5); Mean Corpuscular Hemoglobin 27.8 pg (28.0-33.3); Mean Corpuscular Volume 88.2 fL (83.0-100.0); Mean Platelet Volume 9.7 fL (9.4-12.4); Platelet Count 183 K/mcL (140-400); Red Blood Count 2.88 M/mcL (3.82-4.97); Red Cell Distribution Width 17.8 % (11.5-14.5); White Blood Count 12.4 K/mcL (4.3-11.1)
[2019-01-22 05:16] LABS: Calcium 7.9 mg/dL (8.6-10.3); Magnesium 2.1 mg/dL (1.6-2.6); Phosphorous 4.2 mg/dL (2.7-4.5); Potassium 3.5 mEq/L (3.5-5.1)
[2019-01-22] MEDS: Levalbuterol Neb 1.25 MG/3 ML IH SCH ×6 (06:10→23:28)
[2019-01-22] MEDS ORDERED: 0.9 % Sodium Chloride 250 ML IVC PRN (06:55)
[2019-01-22] MEDS: Budesonide/Formoterol 160/4.5 1 PUFF INH IH SCH ×2 (07:55→19:48)
[2019-01-22] MEDS ORDERED: *HR* Heparin 10,000 UNIT/10 ML VIAL IV PRN (09:42)
[2019-01-22] MEDS: Folic Acid 1 MG TABLET PO SCH (10:19)
[2019-01-22] MEDS ORDERED: *HR* LORazepam 0.5 MG TABLET PO ONE (10:37)
[2019-01-22] MEDS: *HR* HYDROcodone/Acet 5/325 mg TABLET PO PRN (18:02)
[2019-01-23] MEDS: Levalbuterol Neb 1.25 MG/3 ML IH SCH ×5 (03:07→19:48)
[2019-01-23 04:59] LABS: Basophils % 0.2 %; Eosinophils % 0.1 %; Hematocrit 23.3 % (35.3-44.9); Hemoglobin 7.1 g/dL (11.5-15.4); Immature Granulocytes % 0.7 % (0-4); Lymphocytes # 0.5 K/mcL (0.6-4.6); Lymphocytes % 4.3 %; Mean Corpuscular HGB Conc 30.5 g/dL (31.6-35.5); Mean Corpuscular Hemoglobin 27.3 pg (28.0-33.3); Mean Corpuscular Volume 89.6 fL (83.0-100.0); Mean Platelet Volume 10.3 fL (9.4-12.4); Monocytes # 1.4 K/mcL (0.0-1.3); Monocytes % 12.3 %; Neutrophils # 9.7 K/mcL (1.6-8.9); Platelet Count 192 K/mcL (140-400); Red Cell Distribution Width 17.5 % (11.5-14.5); Segmented Neutrophils % 82.4 %; White Blood Count 11.7 K/mcL (4.3-11.1)
[2019-01-23 05:09] LABS: Calcium 7.9 mg/dL (8.6-10.3); Magnesium 1.7 mg/dL (1.6-2.6); Phosphorous 3.7 mg/dL (2.7-4.5); Potassium 3.6 mEq/L (3.5-5.1)
[2019-01-23] MEDS: Budesonide/Formoterol 160/4.5 1 PUFF INH IH SCH ×2 (07:15→19:48)
[2019-01-23 09:47] LABS: INR 1.3; Prothrombin Time 14.6 Seconds (9.4-12.1)
[2019-01-23] MEDS ORDERED: 0.9 % Sodium Chloride 250 ML IVC PRN (09:50)
[2019-01-23] MEDS: Folic Acid 1 MG TABLET PO SCH (10:11)
[2019-01-23] MEDS ORDERED: Heparin 1,000 UNITS/500 mL 500 ML ONE (10:27)
[2019-01-23] MEDS ORDERED: 0.9 % Sodium Chloride 500 ML ONE (10:43)
[2019-01-23] MEDS ORDERED: CeFAZolin Premix DUPLEX 2,000 MG/50 ML BAG IVPB ONE (10:56)
[2019-01-23] MEDS ORDERED: *HR* FentaNYL (PF) 100 MCG/2 ML VIAL IVP ONE (10:57)
[2019-01-23] MEDS ORDERED: *HR* Midazolam HCl 2 MG/2 ML VIAL IVP ONE (10:57)
[2019-01-23] MEDS ORDERED: 0.9 % Sodium Chloride 1,000 ML ONE (10:59)
[2019-01-23] MEDS ORDERED: *HR* Heparin 5,000 UNIT/ML VIAL ONE (11:13)
[2019-01-23] MEDS ORDERED: *HR* Heparin 10,000 UNIT/10 ML VIAL IV PRN (14:26)
[2019-01-23] MEDS ORDERED: E-Z-PAQUE (BARIUM SULF) SUSP 1 BOTTLE PO ONE (16:05)
[2019-01-23] MEDS: *HR* HYDROcodone/Acet 5/325 mg TABLET PO PRN (17:12)
[2019-01-23] MEDS: *HR* LORazepam 0.5 MG TABLET PO PRN (22:53)
[2019-01-24] MEDS: Levalbuterol Neb 1.25 MG/3 ML IH SCH ×6 (00:25→19:38)
[2019-01-24] MEDS: *HR* HYDROcodone/Acet 5/325 mg TABLET PO PRN ×3 (00:36→23:07)
[2019-01-24 04:32] LABS: Basophils % 0.3 %; Eosinophils % 0.2 %; Hematocrit 21.4 % (35.3-44.9); Hemoglobin 6.9 g/dL (11.5-15.4); Immature Granulocytes % 0.5 % (0-4); Lymphocytes # 0.4 K/mcL (0.6-4.6); Lymphocytes % 3.9 %; Mean Corpuscular HGB Conc 32.2 g/dL (31.6-35.5); Mean Corpuscular Hemoglobin 28.3 pg (28.0-33.3); Mean Corpuscular Volume 87.7 fL (83.0-100.0); Mean Platelet Volume 9.9 fL (9.4-12.4); Monocytes # 1.2 K/mcL (0.0-1.3); Monocytes % 12.7 %; Neutrophils # 7.7 K/mcL (1.6-8.9); Platelet Count 216 K/mcL (140-400); Red Blood Count 2.44 M/mcL (3.82-4.97); Red Cell Distribution Width 17.5 % (11.5-14.5); Segmented Neutrophils % 82.4 %; White Blood Count 9.3 K/mcL (4.3-11.1)
[2019-01-24 04:54] LABS: Calcium 7.8 mg/dL (8.6-10.3); Potassium 3.4 mEq/L (3.5-5.1)
[2019-01-24] MEDS ORDERED: 0.9 % Sodium Chloride 1,000 ML ONE ×2 (07:09→10:27)
[2019-01-24] MEDS ORDERED: 0.9 % Sodium Chloride 250 ML IVC PRN (07:11)
[2019-01-24] MEDS: Budesonide/Formoterol 160/4.5 1 PUFF INH IH SCH ×2 (07:36→19:38)
[2019-01-24] MEDS ORDERED: *HR* Heparin 10,000 UNIT/10 ML VIAL IV PRN (11:04)
[2019-01-24] MEDS: Apixaban 5 MG TABLET PO SCH ×2 (12:39→20:06)
[2019-01-24] MEDS: Folic Acid 1 MG TABLET PO SCH (12:40)
[2019-01-24] MEDS: *HR* LORazepam 0.5 MG TABLET PO PRN (23:07)
[2019-01-25] MEDS: Levalbuterol Neb 1.25 MG/3 ML IH SCH ×6 (00:19→20:07)
[2019-01-25 04:52] LABS: Basophils % 0.3 %; Eosinophils % 0.1 %; Hematocrit 27.1 % (35.3-44.9); Immature Granulocytes % 0.8 % (0-4); Lymphocytes # 0.5 K/mcL (0.6-4.6); Lymphocytes % 4.9 %; Mean Corpuscular HGB Conc 32.5 g/dL (31.6-35.5); Mean Corpuscular Hemoglobin 27.8 pg (28.0-33.3); Mean Corpuscular Volume 85.8 fL (83.0-100.0); Monocytes # 1.4 K/mcL (0.0-1.3); Monocytes % 13.3 %; Neutrophils # 8.5 K/mcL (1.6-8.9); Platelet Count 241 K/mcL (140-400); Red Blood Count 3.16 M/mcL (3.82-4.97); Red Cell Distribution Width 17.6 % (11.5-14.5); Segmented Neutrophils % 80.6 %; White Blood Count 10.5 K/mcL (4.3-11.1)
[2019-01-25 04:53] LABS: Hemoglobin 8.8 g/dL (11.5-15.4)
[2019-01-25 05:09] LABS: Potassium 3.6 mEq/L (3.5-5.1)
[2019-01-25] MEDS: Budesonide/Formoterol 160/4.5 1 PUFF INH IH SCH ×2 (07:29→20:07)
[2019-01-25] MEDS: Apixaban 5 MG TABLET PO SCH ×2 (08:29→20:09)
[2019-01-25] MEDS: Folic Acid 1 MG TABLET PO SCH (08:30)
[2019-01-25] MEDS: *HR* HYDROcodone/Acet 5/325 mg TABLET PO PRN ×2 (08:38→20:22)
[2019-01-25] MEDS: *HR* LORazepam 0.5 MG TABLET PO PRN (20:22)
[2019-01-26] MEDS: Levalbuterol Neb 1.25 MG/3 ML IH SCH ×6 (00:02→20:00)
[2019-01-26 03:41] LABS: Basophils % 0.4 %; Eosinophils % 0.3 %; Hematocrit 26.3 % (35.3-44.9); Hemoglobin 8.4 g/dL (11.5-15.4); Immature Granulocytes % 0.5 % (0-4); Lymphocytes # 0.4 K/mcL (0.6-4.6); Lymphocytes % 4.7 %; Mean Corpuscular HGB Conc 31.9 g/dL (31.6-35.5); Mean Corpuscular Hemoglobin 28.1 pg (28.0-33.3); Monocytes # 1.2 K/mcL (0.0-1.3); Monocytes % 13.4 %; Neutrophils # 7.4 K/mcL (1.6-8.9); Platelet Count 227 K/mcL (140-400); Red Blood Count 2.99 M/mcL (3.82-4.97); Red Cell Distribution Width 17.3 % (11.5-14.5); Segmented Neutrophils % 80.7 %; White Blood Count 9.1 K/mcL (4.3-11.1)
[2019-01-26 04:06] LABS: Calcium 7.9 mg/dL (8.6-10.3); Potassium 3.3 mEq/L (3.5-5.1)
[2019-01-26] MEDS ORDERED: 0.9 % Sodium Chloride 250 ML IVC PRN (06:26)
[2019-01-26] MEDS ORDERED: 0.9 % Sodium Chloride 1,000 ML PRIME SCH (06:30)
[2019-01-26] MEDS: Budesonide/Formoterol 160/4.5 1 PUFF INH IH SCH ×2 (07:28→20:00)
[2019-01-26] MEDS: Folic Acid 1 MG TABLET PO SCH (08:33)
[2019-01-26] MEDS: Apixaban 5 MG TABLET PO SCH ×2 (08:33→20:41)
[2019-01-26] MEDS: *HR* HYDROcodone/Acet 5/325 mg TABLET PO PRN ×2 (10:24→22:50)
[2019-01-26] MEDS ORDERED: *HR* Heparin 10,000 UNIT/10 ML VIAL IV PRN (10:48)
[2019-01-26] MEDS: *HR* LORazepam 0.5 MG TABLET PO PRN ×2 (14:07→22:50)
[2019-01-27] MEDS: Levalbuterol Neb 1.25 MG/3 ML IH SCH ×4 (03:40→11:22)
[2019-01-27 04:34] LABS: Basophils % 0.5 %; Eosinophils # 0.1 K/mcL (0.0-0.6); Eosinophils % 0.6 %; Hematocrit 26.2 % (35.3-44.9); Hemoglobin 8.3 g/dL (11.5-15.4); Immature Granulocytes % 0.5 % (0-4); Lymphocytes # 0.5 K/mcL (0.6-4.6); Lymphocytes % 6.1 %; Mean Corpuscular HGB Conc 31.7 g/dL (31.6-35.5); Mean Corpuscular Hemoglobin 28.2 pg (28.0-33.3); Mean Corpuscular Volume 89.1 fL (83.0-100.0); Monocytes # 1.3 K/mcL (0.0-1.3); Monocytes % 15.5 %; Neutrophils # 6.6 K/mcL (1.6-8.9); Platelet Count 218 K/mcL (140-400); Red Blood Count 2.94 M/mcL (3.82-4.97); Red Cell Distribution Width 17.4 % (11.5-14.5); Segmented Neutrophils % 76.8 %; White Blood Count 8.6 K/mcL (4.3-11.1)
[2019-01-27 04:54] LABS: Calcium 7.8 mg/dL (8.6-10.3); Potassium 3.8 mEq/L (3.5-5.1)
[2019-01-27] MEDS: Budesonide/Formoterol 160/4.5 1 PUFF INH IH SCH (07:35)
[2019-01-27] MEDS: *HR* HYDROcodone/Acet 5/325 mg TABLET PO PRN (08:26)
[2019-01-27] MEDS: *HR* LORazepam 0.5 MG TABLET PO PRN (08:26)
[2019-01-27] MEDS: Apixaban 5 MG TABLET PO SCH (08:26)
[2019-01-27] MEDS: Folic Acid 1 MG TABLET PO SCH (08:26)
[2019-01-27 11:00] VITALS: BP 114/66
== END 2019-01-27 14:30 | DRG 674 ==
LOC: EMEROOARM 11:07 → SUATTDRO 15:54 → 2NNU 15:54 → 2ANU 01-19 11:29
PROVIDERS: ADMIT Family Medicine; ATTEND Internal Medicine
PROC: IRPERMA (2019-01-23 12:00)